=== PATIENT | female | born 2000 | race Caucasian/White ===

== ENCOUNTER 2024-11-02 14:54 | Outpatient (OUT) | payer BC, SELFPAY ==
[2024-11-02 15:47] LABS: Basophils Percent Auto 0.2 % (0.2-2.0); Eosinophils Absolute Auto 0.1 10^3/uL (0.0-0.7); Eosinophils Percent Auto 0.9 % (0.9-7.0); Hematocrit 37.4 % (36.0-48.0); Hemoglobin 13.2 g/dL (12.0-16.0); Immature Granulocytes Abs Auto 0.02 10^3/uL (0.00-0.03); Immature Granulocytes Pct Auto 0.2 % (0.0-0.5); Lymphocytes Absolute Auto 2.6 10^3/uL (1.2-3.8); Lymphocytes Percent Auto 24.4 % (20.5-60.0); Mean Corpuscular HGB Conc 35.3 g/dL (29.9-35.2); Mean Corpuscular Hemoglobin 30.3 pg (26.7-34.0); Mean Platelet Volume 10.2 fL (9.5-13.5); Monocytes Absolute Auto 0.8 10^3/uL (0.3-0.8); Monocytes Percent Auto 7.8 % (1.7-12.0); Neutrophils Percent Auto 66.5 % (43.0-75.0); Platelet Count 282 10^3/uL (150-450); Red Blood Count 4.35 10^6/uL (4.20-5.40); Red Cell Distribution Width 12.5 % (11.0-15.0); White Blood Count 10.5 10^3/uL (4.0-11.0)
[2024-11-02 16:00] LABS: BOX Test Reference Lab UNITY; BOX Test Sent Out UNITY
[2024-11-02 16:04] LABS: Amphetamine Screen Urine NEGATIVE (NEGATIVE); Barbiturates Screen Urine NEGATIVE (NEGATIVE); Benzodiazepines Screen Urine NEGATIVE (NEGATIVE); Buprenorphine Screen Urine NEGATIVE (NEGATIVE); Cannabinoid Screen Urine NEGATIVE (NEGATIVE); Cocaine Screen Urine NEGATIVE (NEGATIVE); Methadone Screen Urine NEGATIVE (NEGATIVE); Methamphetamines Screen Urine NEGATIVE (NEGATIVE); Opiate Screen Urine NEGATIVE (NEGATIVE); Oxycodone Screen Urine NEGATIVE (NEGATIVE); Phencyclidine Screen Urine NEGATIVE (NEGATIVE); Tricyclic Antidepressant Urine NEGATIVE (NEGATIVE)
[2024-11-02 16:20] LABS: Estimated Average Glucose 100 mg/dL; Glycohemoglobin A1C 5.1 % (4.5-6.2)
[2024-11-03 04:08] LABS: Rubella Antibodies, IgG 3.08 index (Immune >0.99)
[2024-11-03 05:07] LABS: HCV Ab Non Reactive (Non Reactive); HIV Ab/p24 Ag Screen Non Reactive (Non Reactive)
[2024-11-03 06:08] LABS: HBsAg Screen Negative (Negative)
[2024-11-03 12:08] LABS: Rapid Plasma Reagin, Quant Non Reactive titer (NonRea<1:1)
== END 2024-11-02 14:55 | disposition home or self-care (01) ==
LOC: LAB 15:01
PROVIDERS: PCP Obstetrics & Gynecology; Visit Provider Obstetrics & Gynecology
DX: Z34.01 Encounter for supervision of normal first pregnancy, first trimester (principal); Z36.0 Encounter for antenatal screening for chromosomal anomalies; N92.6 Irregular menstruation, unspecified
CPT/HCPCS: 36415; 80307; 83036; 85025; 86592; 86762; 86803; 86850; 86900; 86901; 87086; 87340; 87389

== ENCOUNTER 2025-01-05 21:09 | Outpatient (REF) | payer BC, SELFPAY ==
[2025-01-11 14:08] LABS: Age Gdln ACOG Testing Note (.); IGP, rfx Aptima HPV ASCU Note (.)
== END 2025-01-05 21:10 | disposition home or self-care (01) ==
LOC: LAB 21:09
PROVIDERS: Visit Provider Physician Assistant
DX: Z01.419 Encounter for gynecological examination (general) (routine) without abnormal findings (principal)
CPT/HCPCS: 88175

== ENCOUNTER 2025-01-16 14:44 | Outpatient (OUT) | payer BC, SELFPAY ==
--- OUTSIDE RECORDS SUMMARY | 2025-01-05 14:40 | XMS_ITS | Encounter Summary ---
Author Organization [facility] Healthcare Address [address] [place] [address] Care Team Providers Care Diving Board Assembler Name Role Phone Unavailable Primary Care Provider Unavailabl e Reason for Visit * Reason Comments Routine Visit Encounter Details Date Type Department Care Team (Latest Contact Info) Description 01/05/2025 2:40 PM EDT Routine [facility] OB [address] [place] [phone] Elizabeth Bonilla PA [address] [facility] [address] [place], [facility]11 Second trimester ; 20 weeks gestation of ; Screening, , for anatomic survey; Well woman exam with routine gynecological exam; STD exposure Social History Tobacco Use Types Packs/Day Years Used Date Smoking Tobacco: Never Assessed Estimated Date of Delivery Comme nts Yes 05/28/2025 Based on last me nstrual period of 08/21/2024 Sex and Gender Information Value Date Recorded Sex Assigned at Not on file Legal Sex Female 11:47 PM EDT Gender Identity Not on file Sexual Orientation Not on file documented as of this encounter Last Filed Vital Signs Vital Sign Reading Time Taken Comments Blood Pressure 116/74 01/05/2025 3:11 PM EDT Pulse - - Temperature - - Respiratory Rate - - Oxygen Saturation - - Inhaled Oxygen Concentration - - Weight 79.6 kg (175 lb 8 oz) 01/05/2025 3:11 PM EDT Height - - Body Mass Index - - documented in this encounter Progress Notes * DULCE Deshpande - 01/05/2025 2:40 PM EDT Reason for Appointment: Patient ID: Ayala Bradford is a 24 y.o. female who presents for Routine Visit Patient presents today for Return OB appointment. MEDICATIONS No current outpatient medications ALLERGIES No Known Allergies PROBLEMS Active Ambulatory Problems Diagnosis Date Noted No Active Ambulatory Problems Resolved Ambulatory Problems Diagnosis Date Noted No Resolved Ambulatory Problems Past Medical History: Diagnosis Date Well woman exam HISTORY PAST MEDICAL HISTORY SOCIAL HISTORY Past Medical History: Diagnosis Date Well woman exam Social History Tobacco Use Smoking status: Not on file Smokeless tobacco: Not on file Substance Use Topics Alcohol use: Not on file Drug use: Not on file FAMILY HISTORY Family History Problem Relation Name Age of Onset Cancer Maternal Grandfather SURGICAL HISTORY Past Surgical History: Procedure Laterality Date SECTION, CLASSIC 11/18/2021 PAP SMEAR 03/26/2022 REVIEW OF SYSTEMS Review of Systems: Review of Systems Constitutional: Negative. HENT: Negative. Eyes: Negative. Respiratory: Negative. Cardiovascular: Negative. Gastrointestinal: Negative. Genitourinary: Negative. Musculoskeletal: Negative. Skin: Negative. Neurological: Negative. All other systems reviewed and are negative. Hematological: Negative. Endocrine: Negative. Allergic/Immunologic: Negative. OBJECTIVE Objective: Physical Exam Constitutional: Appearance: Normal appearance. She is normal weight. Genitourinary: Right Adnexa: not tender and no mass present. Left Adnexa: not tender and no mass present. No cervical discharge. Breasts: Breasts are soft. Right: Normal. Left: Normal. HENT: Head: Normocephalic. Nose: Nose normal. Mouth/Throat: Mouth: Mucous membranes are moist. Cardiovascular: Rate and Rhythm: Normal rate. Pulses: Normal pulses. Pulmonary: Effort: Pulmonary effort is normal. Breath sounds: Normal breath sounds. Abdominal: General: Bowel sounds are normal. Palpations: Abdomen is soft. Musculoskeletal: General: Normal range of motion. Cervical back: Normal range of motion. Neurological: General: No focal deficit present. Mental Status: She is alert and oriented to person, place, and time. Skin: General: Skin is warm and dry. Psychiatric: Mood and Affect: Mood normal. Behavior: Behavior normal. Thought Content: Thought content normal. Judgment: Judgment normal. Vitals and nursing note reviewed. Exam conducted with a pier hand present. Vitals: There is no height or weight on file to calculate BMI. BP: 116/74 Patient's last menstrual period was 08/21/2024. ASSESSMENT & PLAN ICD-10-CM 1. Second trimester Z34.92 POCT urinalysis dipstick manually resulted 2. 20 weeks gestation of Z3A.20 Alpha fetoprotein, maternal Alpha fetoprotein, maternal 3. Screening, , for anatomic survey Z36.89 US OB 14+ weeks anatomy scan US OB 14+ weeks anatomy scan 4. Well woman exam with routine gynecological exam Z01.419 Pap Smear 5. STD exposure Z20.2 SURESWAB(R) ADVANCED VAGINITIS PLUS, TMA CHLAMYDIA TRACHOMATIS (GENITO/STI) Neisseria gonorrhea DNA probe, direct Return OB/Annual Exam: Patient presents today for an annual exam/routine obstetrics appointment. Patient is currently 19w4d . Patient is doing well and states she has no complaints. Pap/cultures was obtained without difficulty and patient was given msAFP order to have obtained. Orders Placed This Encounter Procedures US OB 14+ weeks anatomy scan CHLAMYDIA TRACHOMATIS (GENITO/STI) Neisseria gonorrhea DNA probe, direct Alpha fetoprotein, maternal POCT urinalysis dipstick manually resulted Follow Up: Patient is to return to our office in 4 weeks for routine OB appointment Documented by DULCE Deshpande on behalf of: DULCE Deshpande documented in this encounter Plan of Treatment Upcoming Encounters Date Type Department Care Team (Late st Contact Info) Description 02/01/2025 3:50 PM EDT Routine [facility] OB [address] [facility] [place] [phone] Zion Dai, DO [address] [place] [address] Scheduled Orders Name Type Priority Associated Diagnoses Orde r Schedule Pap Smear Pathology and Cytology Routine Well woman exam with routine gynecological exam Ordered: 01/05/2025 SURESWAB(R) ADVANCED VAGINITIS PLUS, TMA Pathology and Cytology Routine STD exposure Ordered: 01/05/2025 CHLAMYDIA TRACHOMATIS (GENITO/STI) Lab Routine STD exposure Ordered: 01/05/2025 Neisseria gonorrhea DNA probe, direct Lab Routine STD exposure Ordered: 01/05/2025 US OB 14+ weeks anatomy scan Imaging Routine Screening, , for anatomic survey Expected: 01/05/2025, Expires: 04/07/2025 Alpha fetoprotein, maternal Lab Routine 20 weeks gestation of Expected: 01/05/2025 (Approximate), Expires: 02/05/2025 documented as of this encounter Procedures Procedure Name Priority Date/Time Associated Diagnosis Comments POCT URINALYSIS DIPSTICK Routine 01/05/2025 3:12 PM EDT Second trimester documented in this encounter Results * POCT urinalysis dipstick manually resulted (01/05/2025 3:12 PM EDT) Color, UA Yellow Clarity, UA Clear Glucose, UA Negative Negative - 2000(110) ++++ mg/dL Bilirubin, UA Negative Negative - 4(70) +++ mg/dL Ketones, UA Negative Negative - 160(16) ++++ mg/dL Spec Grav, UA 1.005 1 - 1.03 Blood, UA Negative Negative - 50 Dany/mcL pH, UA 5.5 5 - 9 Protein, UA Negative Negative - 2000(20) ++++ mg/dL Urobilinogen, UA 0.2 0.2 - 12 mg/dL Leukocytes, UA Negative Negative - 500+++ Luz/mcL Nitrite, UA Negative Negative - Positive Urine 01/05/2025 3:12 PM EDT Elizabeth CARDONA POINT OF CARE TEST ENTER/EDIT OR DERABLES Final Result documented in this encounter Visit Diagnoses Diagnosis Second trimester state, incidental 20 weeks gestation of Screening, , for anatomic survey Encounter for anatomic survey Well woman exam with routine gynecological exam Routine gynecological examination STD exposure documented in this encounter
--- OUTSIDE RECORDS SUMMARY | 2025-01-16 14:46 | XMS_ITS ---
Author Organization [facility] ction (ClinicalSummary Clone) Address Unknown Care Team Providers Care Advertising Representative Name Role Phone Unavailable Primary Care Physician Unavailab le Results * [UNITY] ANEUPLOIDY NIPT Performed by: [employer] Component Value Range Date Fraction 6.6% 11/06/2024 03 :02 pm UTC Rh(D) NIPT RhD DETECTED 11/06/2024 03:0 2 pm UTC Sex Chromosome Aneuploidy NOT DETECTED 03:02 pm UTC Monosomy X LOW RISK <1 in 10,000 2024 03:02 pm UTC Trisomy 13 LOW RISK <1 in 10,000 2024 03:02 pm UTC Trisomy 18 LOW RISK <1 in 10,000 2024 03:02 pm UTC Trisomy 21 LOW RISK <1 in 10,000 2024 03:02 pm UTC Sex MALE 11/06/2024 03:0 2 pm UTC Gestation JOSHUA 11/07/19 03:02 pm UTC For detailed report, see PDF See PDF 11/06/2024 03:02 pm UTC 11/06/2024 03:0 2 pm UTC Social History Observation Value Start Date End Date
--- OUTSIDE RECORDS SUMMARY | 2025-01-16 14:47 | XMS_ITS | Encounter Summary ---
Author Organization [facility] Address [address] [place] [address] Care Team Providers Care Media Production Support Manager Name Role Phone Unavailable Primary Care Provider Unavailabl e Encounter Details Date Type Department Care Team (Late Contact Info) Description 01/05/2025 Clinisync Result Encounter [facility] External Department Unsolicited Elizabeth Bonilla PA [address] [place] [address] Dr [place], [place] [address] Social History Tobacco Use Types Packs/Day Years Used Date Smoking Tobacco: Never Assessed Estimated Date of Delivery Comme nts Yes 05/28/2025 Based on last me nstrual period of 08/21/2024 Sex and Gender Information Value Date Recorded Sex Assigned at Not on file Legal Sex Female 11:47 PM EDT Gender Identity Not on file Sexual Orientation Not on file documented as of this encounter Plan of Treatment Upcoming Encounters Date Type Department Care Team (Late Contact Info) Description 02/01/2025 3:50 PM EDT Routine [facility] OB [address] [place] [phone] Zion Dai, DO [address] [facility] [address] [place], [place] [address] documented as of this encounter Procedures Procedure Name Priority Date/Time Associated Diagnosis Comments IGP,APTIMA HPV,AGE GDLN Routine 01/05/2025 2:44 PM EDT documented in this encounter Results * IGP,APTIMA HPV,AGE GDLN (01/05/2025 2:44 PM EDT) AGE GDLN ACOG TESTING Note . [facility] Comment: TESTS RESULT FLAG UNITS REF RANGE LAB Clinician Provided Cytology Information Source.............Endocervix Other.............. No. of containers..01 ThinPrep Vial Age Algo ACOG Brenda... FLAG LEGEND: L-Low Normal,H-High Normal,LL-Alert Low,HH-Alert High <-Panic Low,>-Panic High,A-Abnormal,AA-Critical Abnormal Performed at: 01 [address] [facility] [id number] Marysol Wren MD, IGP, RFX APTIMA HPV ASCU Note . [facility] Comment: TESTS RESULT FLAG UNITS REF RANGE LAB DIAGNOSIS: 02 NEGATIVE FOR INTRAEPITHELIAL LESION OR MALIGNANCY. Specimen adequacy: 02 Satisfactory for evaluation. No endocervical component is identified. An endocervical component is not commonly seen in the patient. Performed by: 02 Elizabeth Sim, Sr. Payroll Processor (ASCP) . 02 Note: Note 02 The Pap smear is a screening test designed to aid in the detection of premalignant and malignant conditions of the uterine cervix. It is not a diagnostic procedure and should not be used as the sole means of detecting cervical cancer. Both false-positive and false-negative reports do occur. Test Methodology: Note 02 This liquid based ThinPrep(R) pap test was screened with the use of an image guided system. . 02 The HPV DNA reflex criteria were not met with this specimen result therefore, no HPV testing was performed. FLAG LEGEND: L-Low Normal,H-High Normal,LL-Alert Low,HH-Alert High <-Panic Low,>-Panic High,A-Abnormal,AA-Critical Abnormal Performed at: [address] [phone] Marysol Wren MD, Performed at: = - [facility] [id number] Wildlife Conservationist: Marysol Wren MD, Phone: [phone] Performed at: [facility] [id number] Wildlife Conservationist: Marysol Wren MD, Phone: [phone] 01/05/2025 2:44 PM EDT 01/06/2025 6:16 AM EDT Narrative AYESHAISYNC - 01/11/2025 2:08 PM EDT SPATULA-ALONE ENDOCERVIX us Elizabeth CARDONA LAB BLOOD ORDERABLES Final Resul t [facility] documented in this encounter Visit Diagnoses Not on filedocumented in this encounter
--- OUTSIDE RECORDS SUMMARY | 2025-01-16 14:47 | XMS_ITS | Encounter Summary ---
Author Organization [facility] Address [address] [place] [address] Care Team Providers Care It Security Manager Name Role Phone Unavailable Primary Care Provider Unavailabl e Encounter Details Date Type Department Care Team (Late Contact Info) Description 01/05/2025 External Result Encounter [facility] External Department Unsolicited Elizabeth Bonilla PA [address] [facility] [address] [place], [place] [phone] Social History Tobacco Use Types Packs/Day Years [...] PM EDT Routine [facility] OB [address] [facility] [address] [place] [phone] Zion Dai, DO [address] [facility] [place] [address] documented as of this encounter Procedures Procedure Name Priority Date/Time Associated Diagnosis Comments RECURRENT VAGINITIS (HTRX) Routine 01/05/2025 3:26 PM EDT documented in this encounter Results * RECURRENT VAGINITIS (HTRX) (01/05/2025 3:26 PM EDT) [facility] ATOPOBIUM VAGINAE 0.000 19.961 - 24.689 ppm 01/06/2025 6:28 AM EDT [facility] ATOPOBIUM VAGINAE Not Detected 19.961 - 24.689 ppm 01/06/2025 6:28 AM EDT [facility] BVAB 2,3 (BACTERIAL VAGINOSIS ASSOCIATED BACTERIA 2, 3); MOBILUNCUS SPP 0.000 19.961 - 24.689 ppm 01/06/2025 6:28 AM EDT [facility] BVAB 2,3 (BACTERIAL VAGINOSIS ASSOCIATED BACTERIA 2, 3); MOBILUNCUS SPP Not Detected 19.961 - 24.689 ppm 01/06/2025 6:28 AM EDT [facility] TERRANCE ALBICANS, PARAPSILOSIS, TROPICALIS 0.000 19.961 - 30.770 ppm 01/06/2025 6:28 AM EDT [facility] TERRANCE ALBICANS, PARAPSILOSIS, TROPICALIS Not Detected 19.961 - 30.770 ppm 01/06/2025 6:28 AM EDT [facility] TERRANCE GLABRATA 0.000 23.000 - 32.138 ppm 01/06/2025 6:28 AM EDT [facility] TERRANCE GLABRATA Not Detected 23.000 - 32.138 ppm 01/06/2025 6:28 AM EDT [facility] TERRANCE KRUSEI 0.000 23.000 - 32.271 ppm 01/06/2025 6:28 AM EDT [facility] TERRANCE KRUSEI Not Detected 23.000 - 32.271 ppm 01/06/2025 6:28 AM EDT [facility] CHLAMYDIA TRACHOMATIS 0.000 23.000 - 31.467 ppm 01/06/2025 6:28 AM EDT [facility] CHLAMYDIA TRACHOMATIS Not Detected 23.000 - 31.467 ppm 01/06/2025 6:28 AM EDT [facility] GARDNERELLA VAGINALIS 0.000 19.961 - 24.689 ppm 01/06/2025 6:28 AM EDT [facility] GARDNERELLA VAGINALIS Not Detected 19.961 - 24.689 ppm 01/06/2025 6:28 AM EDT [facility] MEGASPHAERA (TYPES 1, 2) 0.000 19.961 - 24.689 ppm 01/06/2025 6:28 AM EDT [facility] MEGASPHAERA (TYPES 1, 2) Not Detected 19.961 - 24.689 ppm 01/06/2025 6:28 AM EDT [facility] NEISSERIA GONORRHOEAE 0.000 23.000 - 32.117 ppm 01/06/2025 6:28 AM EDT [facility] NEISSERIA GONORRHOEAE Not Detected 23.000 - 32.117 ppm 01/06/2025 6:28 AM EDT [facility] TRICHOMONAS VAGINALIS 0.000 23.000 - 32.119 ppm 01/06/2025 6:28 AM EDT [facility] TRICHOMONAS VAGINALIS Not Detected 23.000 - 32.119 ppm 01/06/2025 6:28 AM EDT [facility] MYCOPLASMA GENITALIUM 0.000 19.961 - 24.689 ppm 01/06/2025 6:28 AM EDT [facility] MYCOPLASMA GENITALIUM Not Detected 19.961 - 24.689 ppm 01/06/2025 6:28 AM EDT [facility] Tissue 01/05/2025 3:26 PM EDT 01/06/2025 1:28 AM EDT us Elizabeth CARDONA LAB BLOOD ORDERABLES Final Resul t [facility] [address] [place] [address] documented in this encounter Visit Diagnoses Not on filedocumented in this encounter
--- OUTSIDE RECORDS SUMMARY | 2025-01-16 14:47 | XMS_ITS | Encounter Summary ---
Author Organization [facility] Address [address] [place] [address] Care Team Providers Care Client Consultant Name Role Phone Unavailable Primary Care Provider Unavailabl e Encounter Details Date Type Department Care Team ([facility] Contact Info) Description 12/19/2024 Abstract [facility] OB [address] [place] [address] Zion Dai [facility] [place], [facility]11 Social History Tobacco Use Types Packs/Day Years [...] Description 02/01/2025 3:50 PM EDT Routine [facility] OB [address] [place] [address] Zion Dai DO [address] [place], [facility]11 documented as of this encounter Visit Diagnoses Not on filedocumented in this encounter
--- OUTSIDE RECORDS SUMMARY | 2025-01-16 14:47 | XMS_ITS | Encounter Summary ---
Author Organization [facility] Address [address] [place] [address] Care Team Providers Care Dough Brake Machine Operator Name Role Phone Unavailable Primary Care Provider Unavailabl e Encounter Details Date Type Department Care Team (Latest Contact Info) Description 01/04/2025 Travel Social History Tobacco Use Types Packs/Day Years [...] PM EDT Routine [facility] OB [address] [place] [phone] Zion Dai, DO [address] [facility] [address] [place], [place] [address] documented as of this encounter Visit Diagnoses Not on filedocumented in this encounter
--- OUTSIDE RECORDS SUMMARY | 2025-01-16 14:47 | XMS_ITS | Encounter Summary ---
Author Organization [facility] Address [address] [place] [address] Care Team Providers Care Flower Grader Name Role Phone Unavailable Primary Care Provider Unavailabl e Encounter Details Date Type Department Care Team ([facility] Contact Info) Description 01/05/2025 Bamboo flowsheet [facility] OB [address] [facility] [place] [address] Elizabeth Bonilla PA [address] [facility] [address] [place], [facility]11 Social History Tobacco Use Types Packs/Day Years [...] PM EDT Routine [facility] OB [address] [facility] [address] [place] [address] Zion Dai DO [address] [facility] [address] [place], [facility] documented as of this encounter Visit Diagnoses Not on filedocumented in this encounter
--- OUTSIDE RECORDS SUMMARY | 2025-01-16 14:47 | XMS_ITS | Encounter Summary ---
Author Organization [facility] Address [address] [place] [address] Care Team Providers Care Horizontal Boring Mill Set Up Operator Name Role Phone Unavailable Primary Care Provider Unavailabl e Encounter Details Date Type Department Care Team (Late Contact Info) Description 11/10/2024 Abstract [facility] OB [address] [place] [address] Zion Dai [facility] [place], [facility]11 Social History Tobacco Use Types Packs/Day Years [...] Description 02/01/2025 3:50 PM EDT Routine [facility] OB [address] [place] [address] Zion Dai DO [address] [place], [facility] documented as of this encounter Visit Diagnoses Not on filedocumented in this encounter
--- OUTSIDE RECORDS SUMMARY | 2025-01-16 14:47 | XMS_ITS | Clinical Summary ---
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 Name Role Phone Unavailable Primary Care Provider Unavailabl e Allergies No known active allergies Medications No known medications Encounters Date Type Department Care Team Description 01/05/2025 2:40 PM EDT Routine [facility] [address] [place] [address] Elizabeth Bonilla PA Second trimester ; 20 weeks gestation of ; Screening, , for anatomic survey; Well woman exam with routine gynecological exam; STD exposure 01/05/2025 Clinisync Result Encounter [facility] External Department Unsolicited Elizabeth Bonilla PA 01/05/2025 External Result Encounter [facility] External Department Unsolicited Elizabeth Bonilla PA 01/05/2025 Bamboo flowsheet [facility] [address] [place] [address] Elizabeth Bonilla PA 01/04/2025 Travel 12/19/2024 Abstract [facility] [address] [place] [address] Zion Dai DO 12/08/2024 10:50 AM EDT Routine [facility] [address] [place] [address] Zion Dai DO Second trimester ; 15 weeks gestation of 12/08/2024 Bamboo flowsheet [facility] [address] [place] [address] Zion Dai DO 12/08/2024 Travel 11/27/2024 Travel 11/10/2024 Abstract [facility] [place] [address] Zion Dai, 11/02/2024 Clinisync Result Encounter [facility] External Department Unsolicited Zion Dai, DO 10/27/2024 1:00 PM EDT Initial [facility] [place] [address] GA: [id number] 10/27/2024 12:30 PM EDT Ancillary Procedure [facility] [place] [address] Missed menses 10/27/2024 Telephone [facility] [address] [place] [address] Pat Armas MA 10/20/2024 Travel from Last 3 Months Family History Medical History Relation Name Comments Cancer Maternal Grandfather Relation Name Status Comments Maternal Grandfather Social History Tobacco Use Types Packs/Day Years Used Date Smoking Tobacco: Never Assessed Estimated Date of Delivery Comme nts Yes 05/28/2025 Based on last me nstrual period of 08/21/2024 Sex and Gender Information Value Date Recorded Sex Assigned at Not on file Legal Sex Female 11:47 PM EDT Gender Identity Not on file Sexual Orientation Not on file Last Filed Vital Signs Vital Sign Reading Time Taken Comments Blood Pressure 116/74 01/05/2025 3:11 PM EDT Pulse - - Temperature - - Respiratory Rate - - Oxygen Saturation - - Inhaled Oxygen Concentration - - Weight 79.6 kg (175 lb 8 oz) 01/05/2025 3:11 PM EDT Height - - Body Mass Index - - Plan of Treatment Upcoming Encounters Date Type Department Care Team (Late st Contact Info) Description 02/01/2025 3:50 PM EDT Routine [facility] OB [address] [place] [address] Zion Dai, DO [address] [place], [place] [phone] (work) Procedures Procedure Name Priority Date/Time Associated Diagnosis Comments RECURRENT VAGINITIS (HTRX) Routine 01/05/2025 3:26 PM EDT POCT URINALYSIS DIPSTICK Routine 01/05/2025 3:12 PM EDT Second trimester IGP,APTIMA HPV,AGE GDLN Routine 01/05/2025 2:44 PM EDT POCT URINALYSIS DIPSTICK Routine 12/08/2024 11:16 AM EDT Second trimester HBSAG SCREEN Routine 11/02/2024 3:20 PM EDT RAPID PLASMA REAGIN, QUANT Routine 11/02/2024 3:20 PM EDT HCV ANTIBODY RFX TO QUANT PCR Routine 11/02/2024 3:20 PM EDT HIV AB/P24 AG WITH REFLEX Routine 11/02/2024 3:20 PM EDT ALL RUBELLA IGG AB Routine 11/02/2024 3: 20 PM EDT ALL TYPE AND SCREEN Routine 11/02/2024 3 :20 PM EDT MLR HEMOGLOBIN A1C Routine 11/02/2024 3: 20 PM EDT BOX TEST Routine 11/02/2024 3:20 PM EDT ALL CBC WITH AUTO DIFF Routine 11/02/2024 3:20 PM EDT [facility] DRUG SCREEN RAPID (URINE) Routine 11/02/2024 3:06 PM EDT POCT , URINE Routine 10/27/2024 1:17 PM EDT Missed menses POCT URINALYSIS DIPSTICK Routine 10/27/2024 1:16 PM EDT Missed menses US OB TRANSVAGINAL Routine 10/27/2024 12 :48 PM EDT Missed menses from Last 3 Months Results * RECURRENT VAGINITIS (HTRX) (01/05/2025 3:26 PM EDT) [facility] ATOPOBIUM VAGINAE 0.000 19.961 - 24.689 ppm 01/06/2025 6:28 AM EDT [facility] ATOPOBIUM VAGINAE Not Detected 19.961 - 24.689 ppm 01/06/2025 6:28 AM EDT [facility] BVAB 2,3 (BACTERIAL VAGINOSIS ASSOCIATED BACTERIA 2, 3); MOBILUNCUS SPP 0.000 19.961 - 24.689 ppm 01/06/2025 6:28 AM EDT [facility] BVAB 2,3 (BACTERIAL VAGINOSIS ASSOCIATED BACTERIA 2, 3); MOBILUNCUS SPP Not Detected 19.961 - 24.689 ppm 01/06/2025 6:28 AM EDT [facility] TERRANCE ALBICANS, PARAPSILOSIS, TROPICALIS 0.000 19.961 - 30.770 ppm 01/06/2025 6:28 AM EDT [facility] TERRANCE ALBICANS, PARAPSILOSIS, TROPICALIS Not Detected 19.961 - 30.770 ppm 01/06/2025 6:28 AM EDT [facility] TERRANCE GLABRATA 0.000 23.000 - 32.138 ppm 01/06/2025 6:28 AM EDT [facility] TERRANCE GLABRATA Not Detected 23.000 - 32.138 ppm 01/06/2025 6:28 AM EDT [facility] TERRANCE KRUSEI 0.000 23.000 - 32.271 ppm 01/06/2025 6:28 AM EDT [facility] TERRANCE KRUSEI Not Detected 23.000 - 32.271 ppm 01/06/2025 6:28 AM EDT [facility] CHLAMYDIA TRACHOMATIS 0.000 23.000 - 31.467 ppm 01/06/2025 6:28 AM EDT [facility] CHLAMYDIA TRACHOMATIS Not Detected 23.000 - 31.467 ppm 01/06/2025 6:28 AM EDT [facility] GARDNERELLA VAGINALIS 0.000 19.961 - 24.689 ppm 01/06/2025 6:28 AM EDT [facility] GARDNERELLA VAGINALIS Not Detected 19.961 - 24.689 ppm 01/06/2025 6:28 AM EDT [facility] MEGASPHAERA (TYPES 1, 2) 0.000 19.961 - 24.689 ppm 01/06/2025 6:28 AM EDT [facility] MEGASPHAERA (TYPES 1, 2) Not Detected 19.961 - 24.689 ppm 01/06/2025 6:28 AM EDT [facility] NEISSERIA GONORRHOEAE 0.000 23.000 - 32.117 ppm 01/06/2025 6:28 AM EDT [facility] NEISSERIA GONORRHOEAE Not Detected 23.000 - 32.117 ppm 01/06/2025 6:28 AM EDT [facility] TRICHOMONAS VAGINALIS 0.000 23.000 - 32.119 ppm 01/06/2025 6:28 AM EDT [facility] TRICHOMONAS VAGINALIS Not Detected 23.000 - 32.119 ppm 01/06/2025 6:28 AM EDT [facility] MYCOPLASMA GENITALIUM 0.000 19.961 - 24.689 ppm 01/06/2025 6:28 AM EDT [facility] MYCOPLASMA GENITALIUM Not Detected 19.961 - 24.689 ppm 01/06/2025 6:28 AM EDT [facility] Tissue 01/05/2025 3:26 PM EDT 01/06/2025 1:28 AM EDT Elizabeth CARDONA LAB BLOOD ORDERABLES Final Resul t [id number] [address] [place] [address] * POCT urinalysis dipstick manually resulted (01/05/2025 3:12 PM EDT) Only the most recent of3 resultswithin the time period is included. Color, UA Yellow Clarity, UA Clear Glucose, UA Negative Negative - 1999(110) ++++ mg/dL Bilirubin, UA Negative Negative - 4(70) +++ mg/dL Ketones, UA Negative Negative - 160(16) ++++ mg/dL Spec Grav, UA 1.005 1 - 1.03 Blood, UA Negative Negative - 50 Dany/mcL pH, UA 5.5 5 - 9 Protein, UA Negative Negative - 1999(20) ++++ mg/dL Urobilinogen, UA 0.2 0.2 - 12 mg/dL Leukocytes, UA Negative Negative - 500+++ Luz/mcL Nitrite, UA Negative Negative - Positive Urine 01/05/2025 3:12 PM EDT Elizabeth CARDONA POINT OF CARE TEST ENTER/EDIT OR DERABLES Final Result * IGP,APTIMA HPV,AGE GDLN (01/05/2025 2:44 PM EDT) AGE GDLN ACOG TESTING Note . [facility] Comment: TESTS RESULT FLAG UNITS REF RANGE LAB Clinician Provided Cytology Information Source.............[employer] Other.............. No. of containers..01 ThinPrep Vial Age Algo ACOG Brenda... FLAG LEGEND: L-Low Normal,H-High Normal,LL-Alert Low,HH-Alert High <-Panic Low,>-Panic High,A-Abnormal,AA-Critical Abnormal Performed at: 01 =G [facility] [address] [facility] [place] [address] Marysol Wren MD, IGP, RFX APTIMA HPV ASCU Note . [facility] Comment: TESTS RESULT FLAG UNITS REF RANGE LAB DIAGNOSIS: 02 NEGATIVE FOR INTRAEPITHELIAL LESION OR MALIGNANCY. Specimen adequacy: 02 Satisfactory for evaluation. No endocervical component is identified. An endocervical component is not commonly seen in the patient. Performed by: Maru Sim, Nursing Manager ([facility]) . 02 Note: Note 02 The Pap [...] <-Panic Low,>-Panic High,A-Abnormal,AA-Critical Abnormal Performed at: [address] [address] Marysol Wren MD, Performed at: =[address] [id number] Intelligence Clerk: Marysol Wren MD, Phone: [phone] Performed at: [address] [id number] Intelligence Clerk: Marysol Wren MD, Phone: [phone] 01/05/2025 2:44 PM EDT 01/06/2025 6:16 AM EDT Narrative CLIN[facility] - 01/11/2025 2:08 PM EDT SPATULA-ALONE ENDOCERVIX Elizabeth CARDONA LAB BLOOD ORDERABLES Final Resul t Performing Organization Address [facility] Co de Phone Number [facility] * BOX TEST (11/02/2024 3:20 PM EDT) BOX TEST SENT OUT [facility] [address] [facility] [address] 11/02/24 [facility] 11/02/2024 3:20 PM EDT 11/02/2024 3:40 PM EDT Narrative [facility] - 11/02/2024 4:00 PM EDT [place] Zion Dai DO LAB BLOOD ORDERABLES Final Resul t Performing Organization Address [facility]/ZIP Co de Phone Number [facility] * HBSAG SCREEN (11/02/2024 3:20 PM EDT) Pathologist [facility] HBSAG SCREEN Negative Negative [facility] Comment: Performed at: CB [address] [id number] Intelligence Clerk: William Mathis PhD, Phone: [phone] 11/02/2024 3:20 PM EDT 11/02/2024 3:40 PM EDT [facility] 11/03/20[facility] 12:08 PM EDT Zion Malaika DO LAB BLOOD ORDERABLES Final Resul t Performing Organization Address [facility] Co de Phone Number [facility] * RAPID PLASMA REAGIN, QUANT (11/02/2024 3:20 PM EDT) Pathologist [facility] RAPID PLASMA REAGIN, QUANT Non Reactive NonRea<1: 1 titer [facility] Comment: Please Note: This test does not meet current guidelines for screening and diagnosis of syphilis. This test is intended for following treatment response in patients being treated for syphilis infection. To screen for syphilis infection, a reflex cascade that includes both RPR and a treponema-specific assay should be utilized, such as Treponema pallidum (Syphilis) Screening [place] (622062) or Rapid Plasma Reagin (RPR) Test With Reflex to Quantitative RPR and Confirmatory Treponema pallidum Antibodies (569452). Performed at: [address] [id number] Intelligence Clerk: William Mathis PhD, Phone: [phone] 11/02/2024 3:20 PM EDT 11/02/2024 3:40 PM EDT Narrative [facility] - 11/03/2024 12:08 PM EDT Zion Malaika DO LAB BLOOD ORDERABLES Final Resul t Performing Organization Address City/[facility]/ZIP Co de Phone Number [facility] * HIV AB/P24 AG WITH REFLEX (11/02/2024 3:20 PM EDT) Pathologist [facility] HIV AB/P24 AG SCREEN Non Reactive Non Reactive [facility] Comment: HIV-1/HIV-2 antibodies and HIV-1 p24 antigen were NOT detected. There is no laboratory evidence of HIV infection. HIV Negative Performed at: [facility] [id number] Intelligence Clerk: William Mathis PhD, Phone: [phone] 11/02/2024 3:20 PM EDT 11/02/2024 3:40 PM EDT Narrative [facility] - 11/03/2024 5:07 AM EDT Zion Malaika DO LAB BLOOD ORDERABLES Final Resul t Performing Organization Address [facility] Co de Phone Number [facility] * HCV ANTIBODY RFX TO QUANT PCR (11/02/2024 3:20 PM EDT) Pathologist [facility] HCV AB Non Reactive Non Reactive [facility] INTERPRETATION: Comment . [facility] Comment: Not infected with HCV unless early or acute infection is suspected (which may be delayed in an immunocompromised individual), or other evidence exists to indicate HCV infection. 11/02/2024 3:20 PM EDT 11/02/2024 3:40 PM EDT Narrative [facility] - 11/03/2024 5:07 AM EDT Expens[employer] DO LAB BLOOD ORDERABLES Final Resul t Performing Organization Address [facility] Co de Phone Number [facility] * MLR HEMOGLOBIN A1C (11/02/2024 3:20 PM EDT) Pathologist [facility] GLYCOHEMOGLOBIN A1C 5.1 4.5 - 6.2 % [facility] Comment: ADA RECOMMENDED LIMIT 4.0 - 6.0 ADA THERAPEUTIC TARGET < 7.0 ACTION SUGGESTED > 7.0 ESTIMATED AVERAGE GLUCOSE 100 mg/dL [facility] 11/02/2024 3:20 PM EDT 11/02/2024 3:40 PM EDT Narrative [facility] - 11/02/2024 4:23 PM EDT us Zion Malaika DO CLINISYNC Final Result Performing Organization Address City/[facility]/ZIP Co de Phone Number [facility] * ALL TYPE AND SCREEN (11/02/2024 3:20 PM EDT) [facility] BLOOD TYPE O Positive [facility] ANTIBODY SCREEN NEGATIVE [facility] 11/02/2024 3:20 PM EDT 11/02/2024 3:40 PM EDT Narrative CLIN[facility] - 11/02/2024 5:14 PM EDT [facility] , Zion Malaika DO CLINISYNC Final Result [facility] * ALL RUBELLA IGG AB (11/02/2024 3:20 PM EDT) [facility] RUBELLA ANTIBODIES, IGG 3.08 Immune >0.99 index [facility] Comment: Non-immune <0.90 Equivocal 0.90 - 0.99 Immune >0.99 Performed at: [facility] Lab[address] [id number] Intelligence Clerk: William Mathis PhD, Phone: [phone] 11/02/2024 3:20 PM EDT 11/02/2024 3:40 PM EDT Narrative [facility] - 11/03/2024 5:07 AM EDT [facility] Final Result Performing Organization Address [facility]/ZIP Co de Phone Number [facility] * (ABNORMAL) ALL CBC WITH AUTO DIFF (11/02/2024 3:20 PM EDT) [facility] TB WBC 10.5 4.0 - 11.0 10 3/uL TBH TBH RBC 4.35 4.20 - 5.40 10 6/uL [facility] TBH HGB 13.2 12.0 - 16.0 g/dL TB TBH HCT 37.4 36.0 - 48.0 % [facility]H MCV 86.0 81.0 - 99.0 fL TBH TBH MCH 30.3 26.7 - 34.0 pg TBH TBH MCHC 35.3(H) 29.9 - 35.2 g/dL TB TB RDW 12.5 11.0 - 15.0 % TB[facility] TBH PLT 282 150 - 450 10 3/uL TBH TBH MPV 10.2 9.5 - 13.5 fL [facility] NEUTROPHILS PERCENT AUTO 66.5 43.0 - 75.0 % [facility] LYMPHOCYTES PERCENT AUTO 24.4 20.5 - 60.0 % [facility] MONOCYTES PERCENT AUTO 7.8 1.7 - 12.0 % [facility]H EO % 0.9 0.9 - 7.0 % [facility] BASOPHILS PERCENT AUTO 0.2 0.2 - 2.0 % [facility] IMMATURE GRANULOCYTES PCT AUTO 0.2 0.0 - 0.5 % [facility] NEUTROPHILS ABSOLUTE AUTO 7.0(H) 1.4 - 6.5 10 3/uL [facility] LYMPHOCYTES ABSOLUTE AUTO 2.6 1.2 - 3.8 10 3/uL [facility] MONOCYTES ABSOLUTE AUTO 0.8 0.3 - 0.8 10 3/uL [facility] TBH EO # 0.1 0.0 - 0.7 10 3/uL [facility] BASOPHILS ABSOLUTE AUTO 0.0 0.0 - 0.1 10 3/uL [facility] IMMATURE GRANULOCYTES ABS AUTO 0.02 0.00 - 0.03 10 3/uL [facility] 11/02/2024 3:20 PM EDT 11/02/2024 3:40 PM EDT Narrative CLIN[facility] - 11/02/2024 3:56 PM EDT us Zion Malaika DO CLINISYNC Final Result [facility] * TB DRUG SCREEN RAPID (URINE) (11/02/2024 3:06 PM EDT) Pathologist [facility] CANNABINOID SCREEN URINE NEGATIVE NEGATIVE TBH PHENCYCLIDINE SCREEN URINE NEGATIVE NEGATIVE TB[facility] COCAINE SCREEN URINE NEGATIVE NEGATIVE TBH METHAMPHETAMINES SCREEN URINE NEGATIVE NEGATIVE TBH OPIATE SCREEN URINE NEGATIVE NEGATIVE TBH AMPHETAMINE SCREEN URINE NEGATIVE NEGATIVE TBH BENZODIAZEPINES SCREEN URINE NEGATIVE NEGATIVE TBH TRICYCLIC ANTIDEPRESSANT URINE NEGATIVE NEGATIVE TBH METHADONE SCREEN URINE NEGATIVE NEGATIVE TBH BARBITURATES SCREEN URINE NEGATIVE NEGATIVE TBH OXYCODONE SCREEN URINE NEGATIVE NEGATIVE TBH BUPRENORPHINE SCREEN URINE NEGATIVE NEGATIVE [facility] Comment: DRUG CLASS TEST SYSTEM CUT-OFF CONCENTRATIONS ARE FOLLOWS: AMP (Amphetamine): 500 ng/mL BAR (Barbiturates): 200 ng/mL BZO (Benzodiazepines): 150 ng/mL BUP (Buprenorphine): 10 ng/mL CLOTILDE (Cocaine): 150 ng/mL mAMP (Methamphetamine): 500 ng/mL MTD (Methadone): 200 ng/mL OPI (Opiates): 100 ng/mL OXY (Oxycodone): 100 ng/mL PCP (Phencyclidine): 25 ng/mL THC (Cannabinoids): 50 ng/mL TCA (Trycyclic Antidepressants): 300 ng/mL 11/02/2024 3:06 PM EDT 11/02/2024 3:42 PM EDT Narrative CLINISYNC - 11/02/2024 4:04 PM EDT us Zion Malaika DO CLINISYNC Final Result [facility] * (ABNORMAL) POCT , urine manually resulted (10/27/2024 1:17 PM EDT) Preg Test, Ur Positive Negative Urine 10/27/2024 1:17 PM EDT us Zion Malaika DO POINT OF CARE TEST ENTER/EDIT OR DERABLES Final Result * US OB transvaginal (10/27/2024 12:48 PM EDT) Anatomical Region Laterality Modality Body Ultrasound 10/30/2024 7:46 AM EDT Narrative 10/30/2024 7:46 AM EDT EXAM: US OB TRANSVAGINAL HISTORY: Dating. COMPARISON: None available. TECHNIQUE: Two-dimensional transvaginal grayscale ultrasound imaging of the pelvis was performed. Color Doppler evaluation of the ovaries was also performed. FINDINGS: The uterus demonstrates a normal homogeneous echotexture. The cervix measures 4.1 cm in length and the cervical os is closed. The right ovary measures 3.1 x 1.8 x 1.8 cm and demonstrates a normal echotexture. There is normal color Doppler flow. The left ovary is not visualized. No fluid is present within the cul-de-sac. There is a single, live intrauterine gestation identified with a heart rate of 174 beats per minute and a crown-rump length measurement of 2.4 cm, correlating to a gestational age of 9 weeks 0 days (+/- 6 days). There is no subchorionic hemorrhage visualized. A yolk sac is visualized. IMPRESSION: 1. Single, live intrauterine gestation 9 weeks, 4 days by LMP. Today's ultrasound measurements correlate with a gestational age of 9 weeks 0 days (+/- 6 days). BRISEIDA by today's ultrasound is 06/01/2025. 2. Normal color Doppler evaluation of the right ovary, the left ovary was not visualized. Electronically Signed:Electronically signed by JAMIE MATOS II, MD, PHD at 30-Oct-2024 07:44:44 AM [facility] Procedure Note Jamie Matos MD - 10/30/2024 EXAM: US OB TRANSVAGINAL HISTORY: Dating. COMPARISON: None available. TECHNIQUE: Two-dimensional transvaginal grayscale ultrasound imaging ofthe pelvis was performed. Color Doppler evaluation of the ovaries was alsoperformed. FINDINGS: The uterus demonstrates a normal homogeneous echotexture. The cervixmeasures 4.1 cm in length and the cervical os is closed. The right ovary measures 3.1 x 1.8 x 1.8 cm and demonstrates a normalechotexture. There is normal color Doppler flow. The left ovary is not visualized. No fluid is present within the cul-de-sac. There is a single, live intrauterine gestation identified with a fetalheart rate of 174 beats per minute and a crown-rump length measurement of2.4 cm, correlating to a gestational age of 9 weeks 0 days (+/- 6 days).There is no subchorionic hemorrhage visualized. A yolk sac isvisualized. IMPRESSION: 1. Single, live intrauterine gestation 9 weeks, 4 days by LMP. Today'sultrasound measurements correlate with a gestational age of 9 weeks 0days (+/- 6 days). BRISEIDA by today's ultrasound is 06/01/2025. 2. Normal color Doppler evaluation of the right ovary, the left ovary wasnot visualized. Electronically Signed:Electronically signed by JAMIE MATOS II, MD, PHDat 30-Oct-2024 07:44:44 AM [facility] us Zion Dai DO IMG OB US PROCEDURES Final Resul t from Last 3 Months Insurance
--- NOTE | 2025-01-16 14:48 | US_ITS ---
The [address] [address] Patient Name: TERESA NGUYEN MRN: [id number] date: 2000 Sex: F Assigned Patient Location: Current Patient Location: Accession/Order Number: [id number] Exam Date: 01/16/2025 16:46 Report Date: 01/16/2025 16:52 At the request of: MELI HOANG Procedure: US OB cervical length Obstetrical Ultrasound for Fetus greater than 14 weeks HISTORY: anatomy assessment heart rate is 138 bpm. The fetus is in cephalic presentation with longitudinal lie. The placenta is in a posterior position with normal appearance. Amniotic fluid subjectively normal. The cervix has a length of 4.3cm. Cervical os is closed. The estimated weight is 459 g. with percentile of 82.7%. The ovaries are not visualized. No fluid identified in the cul-de-sac. Following anatomy identified: Nose and lips, spine, four-chamber heart, stomach, cord insertion, three-vessel cord, kidneys, urinary bladder, 12 long bones and diaphragm. Echogenic focus of the left ventricle measures 3 mm. The biparietal diameter measures 5.3cm consistent with 22 weeks 1 day. Head circumference measures 19.6cm consistent with 21 weeks 6 days. Abdominal circumference measures 17.5cm consistent with 22 weeks 3 days. Femur length is 3.6cm consistent with 21 weeks 2 days. The average gestational age is 22 weeks 0 days. Estimated due date is 05/22/2025. somatic motion identified. US/US OB cervical length IMPRESSION: Single live intrauterine gestation 22 weeks earlier days. The anatomy as above. Cervical length 4.3 cm. Impression dictated by: Andres Espinoza M.D. 01/16/2025 4:52 PM Dictation Location: [facility] Electronically authenticated by: [id number] Y Date: 01/16/2025 16:52
--- NOTE | 2025-01-16 14:48 | US_ITS ---
The [address] [address] Patient Name: TERESA NGUYEN MRN: [id number] date: 2000 Sex: F Assigned Patient Location: US Current Patient Location: US Accession/Order Number: [id number] Exam Date: 01/16/2025 16:46 Report Date: 01/16/2025 16:52 At the request of: MELI HOANG Procedure: US OB cervical length Obstetrical Ultrasound for Fetus greater than 14 weeks HISTORY: anatomy assessment heart rate is 138 bpm. The fetus is in cephalic presentation with longitudinal lie. The placenta is in a posterior position with normal appearance. Amniotic fluid subjectively normal. The cervix has a length of 4.3cm. Cervical os is closed. The estimated weight is 459 g. with percentile of 82.7%. The ovaries are not visualized. No fluid identified in the cul-de-sac. Following anatomy identified: Nose and lips, spine, four-chamber heart, stomach, cord insertion, three-vessel cord, kidneys, urinary bladder, 12 long bones and diaphragm. Echogenic focus of the left ventricle measures 3 mm. The biparietal diameter measures 5.3cm consistent with 22 weeks 1 day. Head circumference measures 19.6cm consistent with 21 weeks 6 days. Abdominal circumference measures 17.5cm consistent with 22 weeks 3 days. Femur length is 3.6cm consistent with 21 weeks 2 days. The average gestational age is 22 weeks 0 days. Estimated due date is 05/22/2025. somatic motion identified. US/US OB anatomy IMPRESSION: Single live intrauterine gestation 22 weeks earlier days. The anatomy as above. Cervical length 4.3 cm. Impression dictated by: Andres Espinoza M.D. 01/16/2025 4:52 PM Dictation Location: [employer] Electronically authenticated by: [id number] Y Date: 01/16/2025 16:52
== END 2025-01-16 14:45 | disposition home or self-care (01) ==
LOC: US 14:44
PROVIDERS: Visit Provider Physician Assistant
DX: Z36.89 Encounter for other specified antenatal screening (principal); Z3A.22 22 weeks gestation of pregnancy
CPT/HCPCS: 76805; 76817

== ENCOUNTER 2025-02-24 14:47 | Outpatient (OUT) | payer BC, SELFPAY ==
[2025-02-24 16:09] LABS: Hematocrit 33.8 % (36.0-48.0); Hemoglobin 11.4 g/dL (12.0-16.0); Immature Granulocytes Abs Auto 0.04 10^3/uL (0.00-0.03); Immature Granulocytes Pct Auto 0.4 % (0.0-0.5); Lymphocytes Absolute Auto 2.0 10^3/uL (1.2-3.8); Mean Corpuscular HGB Conc 33.7 g/dL (29.9-35.2); Mean Corpuscular Hemoglobin 30.5 pg (26.7-34.0); Mean Corpuscular Volume 90.4 fL (81.0-99.0); Platelet Count 252 10^3/uL (150-450); Red Blood Count 3.74 10^6/uL (4.20-5.40); White Blood Count 9.5 10^3/uL (4.0-11.0)
[2025-02-24 16:40] LABS: Glucose 1 Hour 157 mg/dL (<130)
== END 2025-02-24 14:48 | disposition home or self-care (01) ==
LOC: LAB 14:48
PROVIDERS: Visit Provider Obstetrics & Gynecology
DX: Z13.1 Encounter for screening for diabetes mellitus (principal)
CPT/HCPCS: 36415; 82950; 85025

== ENCOUNTER 2025-03-09 07:26 | Outpatient (OUT) | payer BC, SELFPAY ==
[2025-03-09 09:04] LABS: Glucose 1 Hour 163 mg/dL (<180)
[2025-03-09 10:24] LABS: Glucose 2 Hour 142 mg/dL (<155)
[2025-03-09 11:31] LABS: Glucose 3 Hour 123 mg/dL (<140)
== END 2025-03-09 07:27 | disposition home or self-care (01) ==
LOC: LAB 07:26
PROVIDERS: Visit Provider Obstetrics & Gynecology
DX: R73.09 Other abnormal glucose (principal)
CPT/HCPCS: 36415; 82951; 82952

== ENCOUNTER 2025-03-28 15:50 | Outpatient (OUT) | payer BC, SELFPAY ==
--- OUTSIDE RECORDS SUMMARY | 2025-03-22 13:00 | XMS_ITS | Encounter Summary ---
Author Organization [facility] Address [address] [place] [address] Care Team Providers Care Brick Tester Name Role Phone Unavailable Primary Care Provider Unavailabl e Encounter Details Date Type Department Care Team (Latest Contact Info) Description 03/22/2025 1:00 PM EDT Ancillary Procedure ARNOLDO OLIVA [address] [place] [address] size inconsistent with dates ([facility]) Social History Tobacco Use Types Packs/Day Years [...] EDT Routine ARNOLDO OLIVA [address] [place] [address] Zion Dai DO [address] [place], [place] [id number] documented as of this encounter Procedures Procedure Name Priority Date/Time Associated Diagnosis Comments US OB FOLLOW UP TRANSABDOMINAL APPROACH Routine 03/22/2025 1:22 PM EDT size inconsistent with dates ([facility]) documented in this encounter Results * US [...] Visit Diagnoses Diagnosis size inconsistent with dates ([facility]) documented in this encounter
--- OUTSIDE RECORDS SUMMARY | 2025-03-22 13:30 | XMS_ITS | Encounter Summary ---
Author Organization [facility] Address [address] [place] [address] Care Team Providers Care Protective Service Specialist Name Role Phone Unavailable Primary Care Provider Unavailabl e Reason for Visit * Reason Comments Routine Visit Encounter Details Date Type Department Care Team ([facility] Contact Info) Description 03/22/2025 1:30 PM EDT Routine ARNOLDO [place] [facility] [address] [place] [address] Zion Dai DO [address] [place] [address] [place] [address] 30 weeks gestation of ([facility]); Third trimester ([facility]); Elevated glucose tolerance test Social History Tobacco [...] Diabetes mellitus screening 02/01/2025 Second trimester fetus ([facility]) 02/01/2025 23 weeks gestation of ([facility]) 02/01/2025 Resolved Ambulatory Problems Diagnosis Date Noted [...] nursing note reviewed. Exam conducted with a reed press feeder present. Vitals: There is no height or weight on file to calculate BMI. BP: 120/68 Patient's last menstrual period was 08/21/2024. ASSESSMENT & PLAN ICD-10-CM 1. 30 weeks gestation of ([facility]) Z3A.30 POCT urinalysis dipstick manually resulted 2. Third trimester ([facility]) Z34.93 POCT urinalysis dipstick manually resulted 3. [...] PM EDT Routine [facility] [address] [place] [address] Zion Dai DO [address] [place], [place] [id number] documented as of this encounter Procedures Procedure Name Priority Date/Time Associated Diagnosis Comments POCT URINALYSIS DIPSTICK Routine 03/22/2025 1:48 PM EDT 30 weeks gestation of ([facility]) Third trimester ([facility]) documented in this encounter Results * (ABNORMAL) [...] Visit Diagnoses Diagnosis 30 weeks gestation of ([facility]) Third trimester ([facility]) state, incidental Elevated glucose tolerance test Impaired glucose tolerance test documented in this encounter
--- NOTE | 2025-03-28 | US_ITS ---
[facility] [place] [address] Patient Name: TERESA NGUYEN MRN: [id number] date: 2000 Sex: F Assigned Patient Location: Current Patient Location: US Accession/Order Number: [id number] Exam Date: 03/28/2025 16:35 Report Date: 03/28/2025 16:35 At the request of: REINALDO DRUMMOND DO Procedure: US OB BPP w non-stress Biophysical profile. Reason for exam: Excessive growth COMPARISON: None TECHNIQUE: Transabdominal imaging of the gravid uterus was obtained. FINDINGS: The pearl digger reports a BPP of 8 out of 8. KATE is normal at 21.1 cm. heart rate 145 bpm. US/US OB BPP w non-stress IMPRESSION: BPP 8 out of 8. Impression dictated by: Albert Dodge Jr., D.O. 03/28/2025 4:35 PM Dictation Location: [place] [address] Electronically authenticated by: [id number] Y Date: 03/28/2025 16:35
--- OUTSIDE RECORDS SUMMARY | 2025-03-28 15:53 | XMS_ITS | Encounter Summary ---
Author Organization [facility] Address [address] [place] [address] Care Team Providers Care Manager Recovery Name Role Phone Unavailable Primary Care Provider Unavailabl e Encounter Details Date Type Department Care Team ([facility] Contact Info) Description 03/27/2025 Telephone [facility] [address] [place] [address] Diana Heart LPN [address] [place] [id number] Social History Tobacco Use Types Packs/Day Years Used Date Smoking Tobacco: Never Assessed Estimated Date of Delivery Comme nts Yes 05/28/2025 Based on last me nstrual period of 08/21/2024 Sex and Gender Information Value Date Recorded Sex Assigned at Not on file Legal Sex Female 11:47 PM EDT Gender Identity Not on file Sexual Orientation Not on file documented as of this encounter Miscellaneous Notes * Telephone Encounter - Diana Heart LPN - 03/27/2025 2:02 PM EDT Hi, my name is Ayala. Sanchez, I am one of Dr Dai's patients. I am currently 31 weeks . I just had I guess a question I was pretty concerned about. Last night at like, 11 I woke up literally like, gasping for air feeling like I was like drowning like I could not breathe like It almost felt like my airway was like the size of like a needle. It was really scary. I could not breathe for like,20 s. I was just gasping. I was not sure that was anything to be concerned about or anything that needed to be looked into. If you guys could give me a call at [phone]. That would be awesome, thank you. I told pt that it was probably just due to her heartburn/acid reflux and offered to send in medication for that. PVU documented in this encounter Plan of Treatment Upcoming Encounters Date Type Department Care Team (Late st Contact Info) Description 04/03/2025 3:50 PM EDT Routine [facility] [address] [place] [phone] Zion Dai DO [address] [place], [place] [phone] documented as of this encounter Visit Diagnoses Diagnosis Gastroesophageal reflux in ([facility]) documented in this encounter
--- OUTSIDE RECORDS SUMMARY | 2025-03-28 15:53 | XMS_ITS | Encounter Summary ---
Author Organization [facility] Address [address] [place] [address] Care Team Providers Care Surgical Oncologist Name Role Phone Unavailable Primary Care Provider Unavailabl e Encounter Details Date Type Department Care Team (Late Contact Info) Description 03/01/2025 Results Follow-Up ARNOLDO OLIVA [address] [place] [address] Diana Heart LPN [address] [employer] [address] [place] [phone] Social History Tobacco Use Types Packs/Day Years [...] as of this encounter Miscellaneous Notes * Result Encounter Note - Diana Heart LPN - 03/01/2025 7:46 AM EDT Pt comes in today. Order put with flowsheet documented in this encounter Plan of Treatment Upcoming Encounters Date Type Department Care Team (Late Contact Info) Description 04/03/2025 3:50 PM EDT Routine [facility] OL[facility]A [address] [place] [address] Malaika, Zion, [address] [place] [address] documented as of this encounter Visit Diagnoses Not on filedocumented in this encounter
--- OUTSIDE RECORDS SUMMARY | 2025-03-28 15:53 | XMS_ITS | Encounter Summary ---
Author Organization [facility] Address [address] [place] [address] Care Team Providers Care Terra Cotta Roofer Name Role Phone Unavailable Primary Care Provider Unavailabl e Encounter Details Date Type Department Care Team (Late Contact Info) Description 11/10/2024 Abstract ARNOLDO OLIVA [address] [place] [address] Zion Dai DO [address] [place], [id number] Social History Tobacco Use Types Packs/Day Years [...] EDT Routine ARNOLDO OLIVA [address] [place] [address] Zion Dai DO [address] [place], [place] [phone] documented as of this encounter Visit Diagnoses Not on filedocumented in this encounter
--- OUTSIDE RECORDS SUMMARY | 2025-03-28 15:53 | XMS_ITS | Encounter Summary ---
Author Organization [facility] Address [address] [place] [address] Care Team Providers Care Attorney Lawyer Name Role Phone Unavailable Primary Care Provider Unavailabl e Encounter Details Date Type Department Care Team (Late Contact Info) Description 03/28/2025 Telephone [facility] [address] [facility] [address] Diana Heart LPN [address] [place] [address] Social History Tobacco Use Types Packs/Day Years [...] Telephone Encounter - Diana Heart LPN - 03/28/2025 8:49 AM EDT FBC needed order documented in this encounter Plan of Treatment Upcoming Encounters Date Type Department Care Team (Late Contact Info) Description 04/03/2025 3:50 PM EDT Routine [facility] OLIVA [address] [place] [address] Zion Dai DO [address] [place] [address] Scheduled Orders Name Type Priority Associated Diagnoses Orde r Schedule US biophysical profile w non stress test Imaging Routine Excessive growth affecting management of in third trimester, single or unspecified fetus ([facility]) Polyhydramnios in third trimester complication, single or unspecified fetus ([facility]) Expected: 03/28/2025 (Approximate), Expires: 09/28/2025 documented as of this encounter Visit Diagnoses Diagnosis Excessive growth affecting management of in third trimester, single or unspecified fetus ([facility]) Polyhydramnios in third trimester complication, single or unspecified fetus ([facility]) documented in this encounter
--- OUTSIDE RECORDS SUMMARY | 2025-03-28 15:53 | XMS_ITS | Encounter Summary ---
Author Organization [facility] Address [address] [facility] [place] [address] Care Team Providers Care Manufacturing Storeperson Name Role Phone Unavailable Primary Care Provider Unavailabl e Encounter Details Date Type Department Care Team (Late Contact Info) Description 12/19/2024 Abstract ARNOLDO OLIVA [address] [place] [address] Zion Dai DO [address] [place], [facility] Social History Tobacco Use Types Packs/Day [...] EDT Routine ARNOLDO OLIVA [address] [place] [address] Zion Dai DO [address] [place], [place] [phone] documented as of this encounter Visit Diagnoses Not on filedocumented in this encounter
--- OUTSIDE RECORDS SUMMARY | 2025-03-28 15:53 | XMS_ITS | Encounter Summary ---
Author Organization [facility] Address [address] [place] [address] Care Team Providers Care Night Time Nanny Name Role Phone Unavailable Primary Care Provider Unavailabl e Encounter Details Date Type Department Care Team ([facility] Contact Info) Description 01/17/2025 Orders Only ARNOLDO OLIVA [address] [place] [phone] Radha Cassidy LPN [address] [facility] [place] [address] Social History Tobacco Use Types Packs/Day Years [...] Info) Description 04/03/2025 3:50 PM EDT Routine NOM[facility]jeet OLIVA [address] [place] [phone] Zion Dai DO [address] [facility] [address] [place] [place], [place] [id number] documented as of this encounter Procedures Procedure Name Priority Date/Time Associated Diagnosis Comments PAP SMEAR Routine 01/05/2025 12:00 AM EDT documented in this encounter Results * Pap Smear (01/05/2025 12:00 AM EDT) Swab Cervical swab / Unknown us Malaika Nurse [facility] LAB CYTOLOGY ORDERABLES Final Result EXTERNAL LAB documented in this encounter Visit Diagnoses Not on filedocumented in this encounter
--- OUTSIDE RECORDS SUMMARY | 2025-03-28 15:53 | XMS_ITS | Encounter Summary ---
Author Organization [facility] Address [address] [place] [address] Care Team Providers Care Endorsement Clerk Name Role Phone Unavailable Primary Care Provider Unavailabl e Encounter Details Date Type Department Care Team (Latest Contact Info) Description 03/22/2025 Travel Social History Tobacco Use Types Packs/Day [...] Description 04/03/2025 3:50 PM EDT Routine ARNOLDO Santos OBGYN [address] [address] [address] Zion Dai DO [address] [place], [place] [address] documented as of this encounter Visit Diagnoses Not on filedocumented in this encounter
--- OUTSIDE RECORDS SUMMARY | 2025-03-28 15:53 | XMS_ITS | Clinical Summary ---
Author Organization [facility] Address [address] [place] [address] Care Team Providers Care Music Department Chair Name Role Phone Unavailable Primary Care Provider Unavailabl e Allergies No known active allergies Medications famotidine (Pepcid) 20 MG tabletIndication s:Gastroesophage al Reflux Disease,Heartbur n Take 1 tablet (20 mg) by mouth Daily 30 tablet 11 03/27/2025 Active Active Problems Problem Noted Date Diagnosed Date Diabetes mellitus screening 02/01/2025 Second trimester fetus ([facility]) 02/01/2025 23 weeks gestation of ([facility]) 2024 Estimated Date of Delivery Comme nts Yes 05/28/2025 Based on last me nstrual period of 08/21/2024 Encounters Date Type Department Care Team Description 03/28/2025 Telephone [facility] OLIVA [facility] [place] [address] Diana Heart LPN 03/27/20[place] [address] Diana Heart LPN 03/22/2025 1:30 PM [place] [address] Zion Dai DO 30 weeks gestation of ([facility]); Third trimester ([facility]); Elevated glucose tolerance test 03/22/2025 1:00 PM EDT Ancillary Procedure [place] [address] size inconsistent with dates ([facility]) 03/22/2025 Travel 03/09/2025 Clinisync Result Encounter NOMS External Department Unsolicited Zion Dai, 03/06/2025 2:50 [place] [address] Elizabeth Hoang PA size inconsistent with dates ([facility]) (Primary Dx); Second trimester ([facility]); 28 weeks gestation of ([facility]) 03/06/2025 [place] [address] Elizabeth Hoang PA 03/06/2025 Travel 03/01/2025 Results [place] [address] Diana Heart, DAM TENDER ASSISTANT 03/01/2025 [place] [address] Diana Heart, DAM TENDER ASSISTANT 02/24/2025 Clinisync Result Encounter NOMS External Department Unsolicited Zion Dai, 02/23/2025 Travel 02/01/2025 3:50 [place] [address] Zion Dai, Diabetes mellitus screening; Second trimester fetus ([facility]); 23 weeks gestation of ([facility]) 02/01/2025 [place] [address] Zion Dai, 01/25/2025 Travel 01/17/2025 [place] [address] Radha CassidyTAMEKA 01/16/2025 Clinisync Result Encounter NOMS External Department Unsolicited Elizabeth Hoang PA 01/16/2025 Clinisync Result Encounter NOMS External Department Unsolicited Elizabeth Hoang PA 01/05/2025 2:40 PM [place] [address] Elizabeth Hoang PA Second trimester ([facility]); 20 weeks gestation of ([facility]); Screening, , for anatomic survey ([facility]); Well woman exam with routine gynecological exam; STD exposure 01/05/2025 Clinisync Result Encounter NOMS External Department Unsolicited Elizabeth Hoang PA 01/05/2025 External Result Encounter NOMS External Department Unsolicited Elizabeth Hoang PA 01/05/2025 [place] [address] Elizabeth Hoang PA 01/04/2025 Travel from Last 3 Months Family History [...] Description 04/03/2025 3:50 PM EDT Routine [place] [phone] Zion Dai, DO [address] [facility] [place] [address] Procedures Procedure Name Priority Date/Time Associated Diagnosis Comments POCT URINALYSIS DIPSTICK Routine 03/22/2025 1:48 PM EDT 30 weeks gestation of ([facility]) Third trimester ([facility]) US OB FOLLOW UP TRANSABDOMINAL APPROACH Routine 03/22/2025 1:22 PM EDT size inconsistent with dates ([facility]) GLUCOSE TOLERANCE 3 HOUR Routine 03/09/2025 7:37 AM EDT GLUCOSE 1 HOUR Routine 02/24/2025 3:55 PM EDT ALL CBC WITH AUTO DIFF Routine 3:55 PM EDT POCT URINALYSIS DIPSTICK Routine 02/01/2025 4:13 PM EDT Second trimester fetus ([facility]) 23 weeks gestation of ([facility]) US OB CERVICAL LENGTH 01/16/2025 4:52 PM EDT US OB ANATOMY 01/16/2025 4:52 PM EDT RECURRENT VAGINITIS (HTRX) Routine 01/05/2025 3:26 PM EDT POCT URINALYSIS DIPSTICK Routine 01/05/2025 3:12 PM EDT Second trimester ([facility]) IGP,APTIMA HPV,AGE GDLN Routine 01/05/2025 2:44 PM EDT PAP SMEAR Routine 01/05/2025 12:00 AM EDT from Last 3 Months Results * (ABNORMAL) POCT urinalysis dipstick manually resulted (03/22/2025 1:48 PM EDT) Only the most recent of3 [...] - Positive Urine 03/22/2025 1:48 PM EDT us [facility] Limazio DO POINT OF CARE TEST ENTER/EDIT OR DERABLES Final Result * US OB follow up transabdominal approach [...] IMG OB US PROCEDURES Final Re sult * GLUCOSE TOLERANCE 3 HOUR (03/09/2025 7:37 AM EDT) GLUCOSE TOLERANCE 3 HOUR mg/dL [facility] Comment: GLU FAST 87 (<95) Col: 03/09/25 0737 GLU 1HR 163 (<180) Col: 03/09/25 0844 GLU 2HR 142 (<155) Col: 03/09/25 0942 GLU 3HR 123 (<140) Col: 03/09/25 1042 03/09/2025 7:37 AM EDT 03/09/2025 7:38 AM EDT Narrative CLINISYNC - 03/09/2025 11:43 AM EDT Zion Malaika DO LAB BLOOD ORDERABLES Final Resul t [facility] TB * (ABNORMAL) GLUCOSE 1 HOUR (02/24/2025 3:55 PM EDT) GLUCOSE 1 HOUR 157(H) <130 mg/dL [facility] 02/24/2025 3:55 PM EDT 02/24/2025 4:03 PM EDT Narrative CLINISYNC - 02/24/2025 4:43 PM EDT M-DISC DO LAB BLOOD ORDERABLES Final Resul t [facility] TB * (ABNORMAL) ALL CBC WITH AUTO DIFF (02/24/2025 3:55 PM EDT) Pathologist [facility] TB WBC 9.5 4.0 - 11.0 10 3/uL TBH TBH RBC 3.74(L) 4.20 - 5.40 10 6/uL TBH TBH HGB 11.4(L) 12.0 - 16.0 g/dL TBH TBH HCT 33.8(L) 36.0 - 48.0 % TBH TBH MCV 90.4 81.0 - 99.0 fL TBH TBH MCH 30.5 26.7 - 34.0 pg TBH TBH MCHC 33.7 29.9 - 35.2 g/dL TBH TBH RDW 12.6 11.0 - 15.0 % TBH TBH PLT 252 150 - 450 10 3/uL TBH TBH MPV 10.1 9.5 - 13.5 fL TBH NEUTROPHILS PERCENT AUTO 71.9 43.0 - 75.0 % TBH LYMPHOCYTES PERCENT AUTO 20.9 20.5 - 60.0 % TBH MONOCYTES PERCENT AUTO 5.7 1.7 - 12.0 % TBH TBH EO % 1.0 0.9 - 7.0 % TBH BASOPHILS PERCENT AUTO 0.1(L) 0.2 - 2.0 % TBH IMMATURE GRANULOCYTES PCT AUTO 0.4 0.0 - 0.5 % TBH NEUTROPHILS ABSOLUTE AUTO 6.9(H) 1.4 - 6.5 10 3/uL TBH LYMPHOCYTES ABSOLUTE AUTO 2.0 1.2 - 3.8 10 3/uL TBH MONOCYTES ABSOLUTE AUTO 0.5 0.3 - 0.8 10 3/uL TBH TBH EO # 0.1 0.0 - 0.7 10 3/uL TBH BASOPHILS ABSOLUTE AUTO 0.0 0.0 - 0.1 10 3/uL TBH IMMATURE GRANULOCYTES ABS AUTO 0.04(H) 0.00 - 0.03 10 3/uL TBH 02/24/2025 3:55 PM EDT 02/24/2025 4:03 PM EDT Narrative CLINISYNC - 02/24/2025 4:15 PM EDT us Zion Malaika DO CLINISYNC Final Result CLINISYNC [facility] * US OB CERVICAL LENGTH (01/16/2025 4:52 PM EDT) Anatomical Region Laterality Modality Other 01/16/2025 4:52 PM EDT Narrative 01/16/2025 4:55 [place] [address] Ultrasound Report Signed Patient: TERESA NGUYEN MR#: [id number] : 2000 Acct:[id number] Age/Sex: 24 / F ADM Date: 01/16/25 Loc: US Attending Dr: Elizabeth Hoang Ordering Physician: Elizabeth Hoang Date of Service: 01/16/25 Procedure(s): US OB cervical length Accession Number(s): [id number] cc: Elizabeth Hoang; Physician,Non-Staff Fady The [place] [id number] Patient Name: TERESA NGUYEN MRN: [id number] date: 2000 Sex: F Assigned Patient Location: Current Patient Location: Accession/Order Number: [id number] Exam Date: 01/16/2025 16:46 Report Date: 01/16/2025 16:52 At the request of: ELIZABETH HOANG Procedure: US OB cervical length Obstetrical Ultrasound for Fetus greater than 14 weeks HISTORY: anatomy assessment heart rate is 138 bpm. The fetus is in cephalic presentation with longitudinal lie. The placenta is in a posterior position with normal appearance. Amniotic fluid subjectively normal. The cervix has a length of 4.3cm. Cervical os is closed. The estimated weight is 459 g. with percentile of 82.7%. The ovaries are not visualized. No fluid identified in the cul-de-sac. Following anatomy identified: Nose and lips, spine, four-chamber heart, stomach, cord insertion, three-vessel cord, kidneys, urinary bladder, 12 long bones and diaphragm. Echogenic focus of the left ventricle measures 3 mm. The biparietal diameter measures 5.3cm consistent with 22 weeks 1 day. Head circumference measures 19.6cm consistent with 21 weeks 6 days. Abdominal circumference measures 17.5cm consistent with 22 weeks 3 days. Femur length is 3.6cm consistent with 21 weeks 2 days. The average gestational age is 22 weeks 0 days. Estimated due date is 05/22/2025. somatic motion identified. US/US OB cervical length IMPRESSION: Single live intrauterine gestation 22 weeks earlier days. The anatomy as above. Cervical length 4.3 cm. Impression dictated by: Andres Espinoza M.D. 01/16/2025 4:52 PM Dictation Location: [facility] Electronically authenticated by: [id number] Y Date: 01/16/2025 16:52 Dictated By: Andres Espinoza D.O. Signed By: 01/16/251654 DD/ 51 TD/TT: Sales Associate Key Holder: Procedure Note Radiology, Radiologist, MD - 01/16/[address] [address] Ultrasound Report Signed Patient: TERESA NGUYEN NMR#: [id number] : 2000Acct:[id number] Age/Sex: 24 / FADM Date: 01/16/25 Loc: US Attending Dr: Elizabeth Hoang Ordering Physician: Elizabeth Hoang Date of Service: 01/16/25 Procedure(s): US OB cervical length Accession Number(s): [id number] cc: Elizabeth Hoang; Physician,Non-Staff M.DGeoffrey The [address] [address] Patient Name: TERESA NGUYEN MRN: [id number] date: 2000 Sex: F Assigned Patient Location: US Current Patient Location: US Accession/Order Number: [id number] Exam Date: 01/16/2025 16:46 Report Date: 01/16/2025 16:52 At the request of: ELIZABETH HOANG Procedure: US OB cervical length Obstetrical Ultrasound for Fetus greater than 14 weeks HISTORY: anatomy assessment heart rate is 138 bpm. The fetus is in cephalic presentation with longitudinal lie. The placenta is in a posterior position with normal appearance. Amniotic fluid subjectively normal. The cervix has a lengthof 4.3cm. Cervical os is closed. The estimated weight is 459 g. with percentile of 82.7%. The ovaries are not visualized. No fluid identified in the cul-de-sac. Following anatomy identified: Nose and lips, spine, four-chamberheart, stomach, cord insertion, three-vessel cord, kidneys, urinary bladder, 12long bones and diaphragm. Echogenic focus of the left ventricle measures 3 mm. The biparietal diameter measures 5.3cm consistent with 22 weeks 1 day. Head circumference measures 19.6cm consistent with 21 weeks 6 days. Abdominal circumference measures 17.5cm consistent with 22 weeks 3 days. Femur length is 3.6cm consistent with 21 weeks 2 days. The average gestational age is 22 weeks 0 days. Estimated due date is 05/22/2025. somatic motion identified. US/US OB cervical length IMPRESSION: Single live intrauterine gestation 22 weeks earlier days. The anatomy as above. Cervical length 4.3 cm. Impression dictated by: Andres Espinoza M.D. 01/16/2025 4:52 PM Dictation Location: [place] [address] Electronically authenticated by: [id number] Y Date: 6:52 Dictated By: Andres Espinoza D.O. Signed By:01/16/251654 DD/ 51 TD/TT: Sales Associate Key Holder: us Elizabeth CARDONA [facility] IMAGING Final Result * US OB ANATOMY (01/16/2025 4:52 PM EDT) Anatomical Region Laterality Modality Other 01/16/2025 4:52 PM EDT Narrative 01/16/2025 4:55 [place] [address] Ultrasound Report Signed Patient: TERESA NGUYEN MR#: [id number] : 2000 Acct:[id number] Age/Sex: 24 / F ADM Date: 01/16/25 Loc: US Attending Dr: Elizabeth Hoang Ordering Physician: Elizabeth Hoang Date of Service: 01/16/25 Procedure(s): US OB anatomy Accession Number(s): [id number] cc: Elizabeth Hoang; Physician,Non-Staff Fady The [address] [address] Patient Name: TERESA NGUYEN MRN: [id number] date: 2000 Sex: F Assigned Patient Location: US Current Patient Location: US Accession/Order Number: [id number] Exam Date: 01/16/2025 16:46 Report Date: 01/16/2025 16:52 At the request of: ELIZABETH HOANG Procedure: US OB cervical length Obstetrical Ultrasound for Fetus greater than 14 weeks HISTORY: anatomy assessment heart rate is 138 bpm. The fetus is in cephalic presentation with longitudinal lie. The placenta is in a posterior position with normal appearance. Amniotic fluid subjectively normal. The cervix has a length of 4.3cm. Cervical os is closed. The estimated weight is 459 g. with percentile of 82.7%. The ovaries are not visualized. No fluid identified in the cul-de-sac. Following anatomy identified: Nose and lips, spine, four-chamber heart, stomach, cord insertion, three-vessel cord, kidneys, urinary bladder, 12 long bones and diaphragm. Echogenic focus of the left ventricle measures 3 mm. The biparietal diameter measures 5.3cm consistent with 22 weeks 1 day. Head circumference measures 19.6cm consistent with 21 weeks 6 days. Abdominal circumference measures 17.5cm consistent with 22 weeks 3 days. Femur length is 3.6cm consistent with 21 weeks 2 days. The average gestational age is 22 weeks 0 days. Estimated due date is 05/22/2025. somatic motion identified. US/US OB anatomy IMPRESSION: Single live intrauterine gestation 22 weeks earlier days. The anatomy as above. Cervical length 4.3 cm. Impression dictated by: Andres Espinoza M.D. 01/16/2025 4:52 PM Dictation Location: [place] [address] Electronically authenticated by: [id number] Y Date: 01/16/2025 16:52 Dictated By: Andres Espinoza D.O. Signed By: 01/16/251654 DD/ 51 TD/TT: Sales Associate Key Holder: Procedure Note Radiology, Radiologist, - 01/16/2025 [place] [address] Ultrasound Report Signed Patient: TERESA NGUYEN [facility]#: [id number] : 2000Acct:[id number] Age/Sex: 24 / FADM Date: 01/16/25 Loc: US Attending Dr: Elizabeth Hoang Ordering Physician: Elizabeth Hoang Date of Service: 01/16/25 Procedure(s): US OB anatomy Accession Number(s): [id number] cc: Elizabeth Hoang; Physician,Non-Staff Fady The [place] [address] Patient Name: TERESA NGUYEN MRN: [facility]:[id number] date: 2000 Sex: F Assigned Patient Location: Current Patient Location: US Accession/Order Number: [id number] Exam Date: 01/16/2025 16:46 Report Date: 01/16/2025 16:52 At the request of: ELIZABETH HOANG Procedure: US OB cervical length Obstetrical Ultrasound for Fetus greater than 14 weeks HISTORY: anatomy assessment heart rate is 138 bpm. The fetus is in cephalic presentation with longitudinal lie. The placenta is in a posterior position with normal appearance. Amniotic fluid subjectively normal. The cervix has a lengthof 4.3cm. Cervical os is closed. The estimated weight is 459 g. with percentile of 82.7%. The ovaries are not visualized. No fluid identified in the cul-de-sac. Following anatomy identified: Nose and lips, spine, four-chamberheart, stomach, cord insertion, three-vessel cord, kidneys, urinary bladder, 12long bones and diaphragm. Echogenic focus of the left ventricle measures 3 mm. The biparietal diameter measures 5.3cm consistent with 22 weeks 1 day. Head circumference measures 19.6cm consistent with 21 weeks 6 days. Abdominal circumference measures 17.5cm consistent with 22 weeks 3 days. Femur length is 3.6cm consistent with 21 weeks 2 days. The average gestational age is 22 weeks 0 days. Estimated due date is 05/22/2025. somatic motion identified. US/US OB anatomy IMPRESSION: Single live intrauterine gestation 22 weeks earlier days. The anatomy as above. Cervical length 4.3 cm. Impression dictated by: Andres Espinoza M.D. 01/16/2025 4:52 PM Dictation Location: [place] [address] Electronically authenticated by: [id number] Y Date: 6:52 Dictated By: Andres Espinoza D.O. Signed By:01/16/251654 DD/ 51 TD/TT: Sales Associate Key Holder: Elizabeth [facility] Final Result * RECURRENT VAGINITIS (HTRX) (01/05/2025 3:26 PM EDT) ATOPOBIUM VAGINAE 0.000 19.961 - 24.689 ppm 01/06/2025 6:28 AM EDT [facility] ATOPOBIUM VAGINAE Not Detected 19.961 - 24.689 ppm 01/06/2025 6:28 AM EDT [facility] BVAB 2,3 (BACTERIAL VAGINOSIS ASSOCIATED BACTERIA 2, 3); MOBILUNCUS SPP 0.000 19.961 - 24.689 ppm 01/06/2025 6:28 AM EDT [facility] BVAB 2,3 (BACTERIAL VAGINOSIS ASSOCIATED BACTERIA 2, 3); MOBILUNCUS SPP Not Detected 19.961 - 24.689 ppm 01/06/2025 6:28 AM EDT [facility] TERRANCE ALBICANS, PARAPSILOSIS, TROPICALIS 0.000 19.961 - 30.770 ppm 01/06/2025 6:28 AM EDT [facility] TERRANCE ALBICANS, PARAPSILOSIS, TROPICALIS Not Detected 19.961 - 30.770 ppm 01/06/2025 6:28 AM EDT [facility] TERRANCE GLABRATA 0.000 23.000 - 32.138 ppm 01/06/2025 6:28 AM EDT [facility] TERRANCE GLABRATA Not Detected 23.000 - 32.138 ppm 01/06/2025 6:28 AM EDT [facility] TERRANCE KRUSEI 0.000 23.000 - 32.271 ppm 01/06/2025 6:28 AM EDT [facility] TERRANCE KRUSEI Not Detected 23.000 - 32.271 ppm 01/06/2025 6:28 AM EDT [facility] CHLAMYDIA TRACHOMATIS 0.000 23.000 - 31.467 ppm 01/06/2025 6:28 AM EDT [facility] CHLAMYDIA TRACHOMATIS Not Detected 23.000 - 31.467 ppm 01/06/2025 6:28 AM EDT [facility] GARDNERELLA VAGINALIS 0.000 19.961 - 24.689 ppm 01/06/2025 6:28 AM EDT [facility] GARDNERELLA VAGINALIS Not Detected 19.961 - 24.689 ppm 01/06/2025 6:28 AM EDT [facility] MEGASPHAERA (TYPES 1, 2) 0.000 19.961 - 24.689 ppm 01/06/2025 6:28 AM EDT [facility] MEGASPHAERA (TYPES 1, 2) Not Detected 19.961 - 24.689 ppm 01/06/2025 6:28 AM EDT [facility] NEISSERIA GONORRHOEAE 0.000 23.000 - 32.117 ppm 01/06/2025 6:28 AM EDT [facility] NEISSERIA GONORRHOEAE Not Detected 23.000 - 32.117 ppm 01/06/2025 6:28 AM EDT [facility] TRICHOMONAS VAGINALIS 0.000 23.000 - 32.119 ppm 01/06/2025 6:28 AM EDT [facility] TRICHOMONAS VAGINALIS Not Detected 23.000 - 32.119 ppm 01/06/2025 6:28 AM EDT [facility] MYCOPLASMA GENITALIUM 0.000 19.961 - 24.689 ppm 01/06/2025 6:28 AM EDT [facility] MYCOPLASMA GENITALIUM Not Detected 19.961 - 24.689 ppm 01/06/2025 6:28 AM EDT [facility] Tissue 01/05/2025 3:26 PM EDT 01/06/2025 1:28 AM EDT us Elizabeth CARDONA LAB BLOOD ORDERABLES Final Resul t [facility] [address] [place] [address] * IGP,APTIMA HPV,AGE GDLN (01/05/2025 2:44 PM EDT) Pathologist [facility] AGE GDLN ACOG TESTING Note . TB Comment: TESTS RESULT FLAG UNITS REF RANGE LAB Clinician Provided Cytology Information Source.............[employer] Other.............. No. of containers..01 ThinPrep Vial Age Maximo HUMPHREY Brenda... FLAG LEGEND: L-Low Normal,H-High Normal,LL-Alert Low,HH-Alert High <-Panic Low,>-Panic High,A-Abnormal,AA-Critical Abnormal Performed at: 01 =[facility] [address] Marysol Wren MD, IGP, RFX APTIMA HPV ASCU Note . [facility] Comment: TESTS RESULT FLAG UNITS REF RANGE LAB DIAGNOSIS: 02 NEGATIVE FOR INTRAEPITHELIAL LESION OR MALIGNANCY. Specimen adequacy: 02 Satisfactory for evaluation. No endocervical component is identified. An endocervical component is not commonly seen in the patient. Performed by: Maru Sim, Primer Waterproofing Machine Adjuster ([facility]) . 02 Note: Note 02 The Pap [...] <-Panic Low,>-Panic High,A-Abnormal,AA-Critical Abnormal Performed at: [address] [address] Marysol Wren MD, Performed at: = - [facility] [id number] Pega Developer: Marysol Wren MD, Phone: [phone] Performed at: [address] [id number] Pega Developer: Marysol Wren MD, Phone: [phone] 01/05/2025 2:44 PM EDT 01/06/2025 6:16 AM EDT Narrative CLINISYNC - 01/11/2025 2:08 PM EDT [facility] ENDOCERVIX Elizabeth CARDONA LAB BLOOD ORDERABLES Final Resul t [facility]IN[facility] * Pap Smear (01/05/2025 12:00 AM EDT) Swab Cervical swab / Unknown Malaika [facility] LAB CYTOLOGY ORDERABLES Final Result EXTERNAL LAB from Last 3 Months Insurance
[2025-03-28 16:29] VITALS: BP 117/58; PULSE 95
== END 2025-03-28 17:15 | disposition home or self-care (01) ==
LOC: US 16:00 → FBC 16:06
PROVIDERS: Visit Provider Obstetrics & Gynecology
DX: O36.63X0 Maternal care for excessive fetal growth, third trimester, not applicable or unspecified (principal)
CPT/HCPCS: 76818

== ENCOUNTER 2025-03-31 15:59 | Outpatient (OUT) | payer BC, SELFPAY ==
--- OUTSIDE RECORDS SUMMARY | 2025-03-22 13:00 | XMS_ITS | Encounter Summary ---
Author Organization [facility] Address [address] [place] [address] Care Team Providers Care Line Installer Repairer Name Role Phone Unavailable Primary Care Provider Unavailabl e Encounter Details Date Type Department Care Team (Latest Contact Info) Description 03/22/2025 1:00 PM EDT Ancillary Procedure ARNOLDO OLIVA [address] [place] [address] size inconsistent with dates ([facility]) Social History Tobacco Use Types Packs/Day Years [...] Care Team (Late st Contact Info) Description 04/03/2025 3:50 PM EDT Routine ARNOLDO OLIVA [address] [place] [address] Zion Dai DO [address] [place], [place] [id number] documented as of this encounter Procedures Procedure Name Priority Date/Time Associated Diagnosis Comments US OB FOLLOW UP TRANSABDOMINAL APPROACH Routine 03/22/2025 1:22 PM EDT size inconsistent with dates ([facility]) documented in this encounter Results * US OB follow up transabdominal approach (03/22/2025 1:22 PM EDT) Anatomical Region Laterality Modality Body Ultrasound 03/23/2025 12:2 4 PM EDT Impressions 03/23/2025 1:00 PM EDT 1. Current sonographic age of 33 weeks and 3 days with estimated delivery of May 07, 2025. 2. Prior weight was 82.7%. Prior delivery was May 22, 2025. 3. Polyhydramnios, 26 KATE. TRANSCRIBED BY: ELECTRONICALLY SIGNED BY: Albert Snider MD Narrative 03/23/2025 1:00 PM EDT FINDINGS: Comparison made with prior examination of January 16, 2025. A single, live intrauterine is present with normal cardiac rate of 142 beats per minute. Normal activity and amniotic fluid volume. Amniotic fluid index is 26 cm largest fluid pocket 8.4 cm. Cervix is not measured on the current examination. The placenta is anterior, not associated with the cervical os. The current sonographic age is 33 weeks and 3 days, based on the following measurements: BPD: 8.5cm (34 week, 2 days) Head Circumference : 31.3cm (35 week, 0 days) Abdomen Circumference: 29.5 cm ( 33weeks 3 days ) Femur Length: 6.0 cm (31 weeks 1days) Presentation: Transverse Weight (g) by Percentile Greater than 97% * These measurements result in an estimated date of delivery of May 07, 2025 The current estimated weight is 2103 grams +/- 315( 4 pound, 10 ounces). Procedure Note Albert Snider MD - 03/23/2025 FINDINGS: Comparison made with prior examination of January 16, 2025. A single, liveintrauterine is present with normal cardiac rate of 142beats per minute. Normal activity and amniotic fluid volume.Amniotic fluid index is 26 cm largest fluid pocket 8.4 cm. Cervix is notmeasured on the current examination. The placenta is anterior, notassociated with the cervical os. The current sonographic age is 33 weeksand 3 days, based on the following measurements: BPD: 8.5cm (34 week, 2 days) Head Circumference : 31.3cm (35 week, 0 days) Abdomen Circumference: 29.5 cm ( 33weeks 3 days ) Femur Length: 6.0 cm (31 weeks 1days) Presentation: Transverse Weight (g) by Percentile Greater than 97% * These measurements result in an estimated date of delivery of 2024 The current estimated weight is 2103 grams +/- 315( 4pound, 10 ounces). IMPRESSION: 1. Current sonographic age of 33 weeks and 3 days with estimated deliveryof May 07, 2025. 2. Prior weight was 82.7%. Prior delivery was May 22, 2025. 3. Polyhydramnios, 26 KATE. TRANSCRIBED BY: ELECTRONICALLY SIGNED BY: Albert Snider MD us Juani Aldrich NP IMG OB US PROCEDURES Final Re sult documented in this encounter Visit Diagnoses Diagnosis size inconsistent with dates ([facility]) documented in this encounter
--- OUTSIDE RECORDS SUMMARY | 2025-03-22 13:30 | XMS_ITS | Encounter Summary ---
Author Organization [facility] Address [address] [place] [address] Care Team Providers Care Pickling Machine Operator Name Role Phone Unavailable Primary Care Provider Unavailabl e Reason for Visit * Reason Comments Routine Visit Encounter Details Date Type Department [facility] Description 03/22/2025 1:30 PM EDT Routine [facility] [place] [facility] [address] [place] [address] Zion Dai DO [address] [place] [address] [place] [address] 30 weeks gestation of ([facility]); Third trimester ([facility]); Elevated glucose tolerance test Social History Tobacco Use Types Packs/Day Years [...] Sign Reading Time Taken Comments Blood Pressure 120/68 03/22/2025 1:46 PM EDT Pulse - - Temperature - - Respiratory Rate - - Oxygen Saturation - - Inhaled Oxygen Concentration - - Weight 82 kg (180 lb 12.8 oz) 03/22/2025 1:46 PM EDT Height - - Body Mass Index - - documented in this encounter Progress Notes * Juani Aldrich NP - 03/22/2025 1:30 PM EDT Reason for Appointment: Patient ID: Ayala Bradford is a 24 y.o. female who presents for Routine Visit Patient presents today for Return OB appointment. MEDICATIONS No current outpatient medications ALLERGIES No Known Allergies PROBLEMS Active Ambulatory Problems Diagnosis Date Noted Diabetes mellitus screening 02/01/2025 Second trimester fetus ([facility]) 02/01/2025 23 weeks gestation of ([facility]) 02/01/2025 Resolved Ambulatory Problems Diagnosis Date Noted No [...] Exam Constitutional: Appearance: Normal appearance. She is well-developed. Cardiovascular: Rate and Rhythm: Normal rate and regular rhythm. Pulmonary: Effort: Pulmonary effort is normal. Breath sounds: Normal breath sounds. Abdominal: General: Bowel sounds are normal. There is no distension. Palpations: Abdomen is soft. Tenderness: There is no abdominal tenderness. There is no guarding or rebound. Musculoskeletal: General: No swelling. Normal range of motion. Right lower leg: No edema. Left lower leg: No edema. Neurological: Mental Status: She is alert and oriented to person, place, and time. Skin: General: Skin is warm and dry. Psychiatric: Mood and Affect: Mood normal. Behavior: Behavior normal. Vitals and nursing note reviewed. Exam conducted with a cable television access coordinator present. Vitals: There is no height or weight on file to calculate BMI. BP: 120/68 Patient's last menstrual period was 08/21/2024. ASSESSMENT & PLAN ICD-10-CM 1. 30 weeks gestation of ([facility]) Z3A.30 POCT urinalysis dipstick manually resulted 2. Third trimester ([facility]) Z34.93 POCT urinalysis dipstick manually resulted 3. Elevated glucose tolerance test R73.09 Return OB: Patient presents today for a routine obstetrics appointment. Patient is currently 30w3d . Patient states she is doing well but has complaints of being tired due to current . Patient has verbalizes frequent movement. labor precautions was discussed/given and patient was instructed to perform kick counts three times a day. Orders Placed This Encounter Procedures POCT urinalysis dipstick manually resulted Follow Up: Patient is to return to office in 2 week for routine OB appointment. Growth ultrasound at 97% and Polyhydramnios will begin NST and BPP. Documented by Juani Aldrich NP on behalf of: Zion Dai DO documented in this encounter Plan of Treatment Upcoming Encounters Date Type Department Care Team (Late st Contact Info) Description 04/03/2025 3:50 PM EDT Routine [facility] [address] [place] [address] Zion Dai DO [address] [place], [place] [id number] documented as of this encounter Procedures Procedure Name Priority Date/Time Associated Diagnosis Comments POCT URINALYSIS DIPSTICK Routine 03/22/2025 1:48 PM EDT 30 weeks gestation of ([facility]) Third trimester ([facility]) documented in this encounter Results * (ABNORMAL) POCT urinalysis dipstick manually resulted (03/22/2025 1:48 PM EDT) Color, UA Yellow Clarity, UA Clear Glucose, UA Negative Negative - 2000(110) ++++ mg/dL Bilirubin, UA Negative Negative - 4(70) +++ mg/dL Ketones, UA Negative Negative - 160(16) ++++ mg/dL Spec Grav, UA 1.005 1 - 1.03 Blood, UA Negative Negative - 50 Dany/mcL pH, UA 6.0 5 - 9 Protein, UA Negative Negative - 2000(20) ++++ mg/dL Urobilinogen, UA 1.0 0.2 - 12 mg/dL Leukocytes, UA Negative Negative - 500+++ Luz/mcL Nitrite, UA Negative Negative - Positive Urine 03/22/2025 1:48 PM EDT Zion Dai DO POINT OF CARE TEST ENTER/EDIT OR DERABLES Final Result documented in this encounter Visit Diagnoses Diagnosis 30 weeks gestation of ([facility]) Third trimester ([facility]) state, incidental Elevated glucose tolerance test Impaired glucose tolerance test documented in this encounter
--- OUTSIDE RECORDS SUMMARY | 2025-03-31 16:02 | XMS_ITS | Encounter Summary ---
Author Organization [facility] Address [address] [place] [address] Care Team Providers Care Board Certified Behavioral Analyst Name Role Phone Unavailable Primary Care Provider Unavailabl e Encounter Details Date Type Department Care Team (Late Contact Info) Description 03/28/2025 Telephone [facility] OLIVA [address] [facility] [place] [address] Diana Heart LPN [address] [place] [address] Social History Tobacco Use Types Packs/Day Years [...] PM EDT Routine [facility] Tom OLIVA [address] [email or web address] [address] Zion Dai DO [address] [place] [address] Scheduled Orders Name Type Priority Associated Diagnoses [...]
--- OUTSIDE RECORDS SUMMARY | 2025-03-31 16:02 | XMS_ITS | Encounter Summary ---
Author Organization [facility] Address [address] [place] [address] Care Team Providers Care Bus Aide Name Role Phone Unavailable Primary Care Provider Unavailabl e Encounter Details Date Type Department Care Team ([facility] Contact Info) Description 03/27/2025 Telephone [facility] OBGYJoseph [address] [place] [address] Diana Heart LPN [address] [place] [id number] Social History Tobacco Use Types Packs/Day Years [...] guys could give me a call at [phone]. That would be awesome, thank you. I told pt that it was probably just due to her heartburn/acid reflux and offered to send in medication for that. PVU documented in this encounter Plan of Treatment Upcoming Encounters Date Type Department Care Team (Late st Contact Info) Description 04/03/2025 3:50 PM EDT Routine [facility] OBG[facility] [address] [place] [phone] Zion Dai DO [address] [place], [place] [phone] documented as of this encounter Visit Diagnoses Diagnosis Gastroesophageal reflux in ([facility]) documented in this encounter
--- OUTSIDE RECORDS SUMMARY | 2025-03-31 16:02 | XMS_ITS | Encounter Summary ---
Author Organization [facility] Address [address] [place] [address] Care Team Providers Care Applied Computer Science Professor Name Role Phone Unavailable Primary Care Provider Unavailabl e Encounter Details Date Type Department Care Team (Late st Contact Info) Description 03/28/2025 Clinisync Result Encounter NOMS External Department Unsolicited Reinaldo Dai, DO [address] [place] [address] Social History Tobacco Use Types Packs/Day Years [...] Description 04/03/2025 3:50 PM EDT Routine [facility] [place] [facility] [address] [facility] [place] [phone] Reinaldo Dai DO [address] [place] [address] documented as of this encounter Procedures Procedure Name Priority Date/Time Associated Diagnosis Comments US OB BPP W NON-STRESS 03/28/2025 4:35 PM EDT documented in this encounter Results * US OB BPP W NON-STRESS (03/28/2025 4:35 PM EDT) Anatomical Region Laterality Modality Other 03/28/2025 4:35 PM EDT Narrative 03/28/2025 4:38 [place] [address] Ultrasound Report Signed Patient: TERESA BRADFORD MR#: [id number] : 2000 Acct:[id number] Age/Sex: 24 / F ADM Date: 03/28/25 Loc: [facility] 250-[address]: Reinaldo Dai D.O. Ordering Physician: Reinaldo Dai D.O. Date of Service: 03/28/25 Procedure(s): US OB BPP w non-stress Accession Number(s): [id number] cc: Reinaldo Dai D.O.; Physician,Non-Staff Fady [place] [address] Patient Name: TERESA BRADFORD MRN: [id number] date: 2000 Sex: F Assigned Patient Location: US Current Patient Location: US Accession/Order Number: [id number] Exam Date: 03/28/2025 16:35 Report Date: 03/28/2025 16:35 At the request of: REINALDO DAI DO Procedure: US OB BPP w non-stress Biophysical profile. Reason for exam: Excessive growth COMPARISON: None TECHNIQUE: Transabdominal imaging of the gravid uterus was obtained. FINDINGS: The peripatologist reports a BPP of 8 out of 8. KATE is normal at 21.1 cm. heart rate 145 bpm. US/US OB BPP w non-stress IMPRESSION: BPP 8 out of 8. Impression dictated by: Albert Dodge Jr., D.O. 03/28/2025 4:35 PM Dictation Location: [place] [address] Electronically authenticated by: [id number] Y Date: 03/28/2025 16:35 Dictated By: Albert Dodge M.D. Signed By: [id number] DD/ 34 TD/TT: Assembler Truck Trailer: Procedure Note Radiology, Radiologist, - 03/28/2025 [place] [address] Ultrasound Report Signed Patient: TERESA BRADFORD NMR#: [id number] : 2000Acct:[id number] Age/Sex: 24 / FADM Date: 03/28/25 Loc: [facility] [address]: Reinaldo Dai D.O. Ordering Physician: Reinaldo Dai D.O. Date of Service: 03/28/25 Procedure(s): US OB BPP w non-stress Accession Number(s): [id number] cc: Reinaldo Dai D.O.; Physician,Non-Staff Fady [address] [place] [address] Patient Name: TERESA BRADFORD MRN: [facility]:[id number] date: 2000 Sex: F Assigned Patient Location: US Current Patient Location: US Accession/Order Number: [id number] Exam Date: 03/28/2025 16:35 Report Date: 03/28/2025 16:35 At the request of: REINALDO DAI DO Procedure: US OB BPP w non-stress Biophysical profile. Reason for exam: Excessive growth COMPARISON: None TECHNIQUE: Transabdominal imaging of the gravid uterus was obtained. FINDINGS: The peripatologist reports a BPP of 8 out of 8. KATE is normal at21.1 cm. heart rate 145 bpm. US/US OB BPP w non-stress IMPRESSION: BPP 8 out of 8. Impression dictated by: Albert Dodge Jr., D.O. 03/28/2025 4:35 PM Dictation Location: [place] [address] Electronically authenticated by: [id number] Y Date: 6:35 Dictated By: Albert Dodge M.D. Signed By:03/28/251637 DD/ 34 TD/TT: Assembler Truck Trailer: us Reinaldo Dai DO [facility] Final Result documented in this encounter Visit Diagnoses Not on filedocumented in this encounter
--- OUTSIDE RECORDS SUMMARY | 2025-03-31 16:02 | XMS_ITS | Encounter Summary ---
Author Organization [facility] Address [address] [place] [address] Care Team Providers Care Asbestos Microscopist Name Role Phone Unavailable Primary Care Provider Unavailabl e Encounter Details Date Type Department Care Team (Late Contact Info) Description 12/19/2024 Abstract ARNOLDO OLIVA [address] [place] [phone] Zion Dai DO [address] [place], [facility] Social History Tobacco Use Types Packs/Day [...] EDT Routine ARNOLDO OLIVA [address] [place] [address] Zion Dai DO [address] [place], [place] [phone] documented as of this encounter Visit Diagnoses Not on filedocumented in this encounter
--- OUTSIDE RECORDS SUMMARY | 2025-03-31 16:02 | XMS_ITS | Encounter Summary ---
Author Organization [facility] Address [address] [place] [address] Care Team Providers Care Chief Estimator Name Role Phone Unavailable Primary Care Provider Unavailabl e Encounter Details Date Type Department Care Team (Late Contact Info) Description 03/01/2025 Results Follow-Up ARNOLDO OLIVA [address] [place] [address] Diana Heart LPN [address] [place] [employer] [place] [phone] ALL CBC WITH AUTO DIFF, GLUCOSE 1 HOUR Social History Tobacco Use Types Packs/Day Years [...] 3:50 PM EDT Routine NOMHarjeet OLIVA [address] [place] [address] Zion Dai, [address] [place] [address] documented as of this encounter Visit Diagnoses Not on filedocumented in this encounter
--- OUTSIDE RECORDS SUMMARY | 2025-03-31 16:02 | XMS_ITS | Clinical Summary ---
Author Organization [facility] Address [address] [place] [address] Care Team Providers Care Creative Assistant Name Role Phone Unavailable Primary Care Provider Unavailabl e Allergies No known active allergies Medications famotidine (Pepcid) 20 MG tabletIndication s:Gastroesophage al Reflux Disease,Heartbur n Take 1 tablet (20 mg) by mouth Daily 30 tablet 11 03/27/2025 Active Active Problems Problem Noted Date Diagnosed Date Diabetes mellitus screening 02/01/2025 Second trimester fetus ([facility]) 02/01/2025 23 weeks gestation of ([facility]) 2024 Estimated Date of Delivery Comme nts Yes 05/28/2025 Based on last me nstrual period of 08/21/2024 Encounters Date Type Department Care Team Description 03/28/2025 Clinisync Result Encounter NOMS External Department Unsolicited Reinaldo Dai DO 03/28/2025 [place] [address] Diana Heart LPN 03/27/20[place] [address] Diana Heart LPN 03/22/2025 1:30 PM [place] [address] Reinaldo Dai DO 30 weeks gestation of ([facility]); Third trimester ([facility]); Elevated glucose tolerance test 03/22/2025 1:00 PM EDT [place] [address] size inconsistent with dates ([facility]) 03/22/2025 Travel 03/09/2025 Clinisync Result Encounter NOMS External Department Unsolicited Reinaldo Dai DO 03/06/2025 2:50 PM [place] [address] Elizabeth Hoang PA size inconsistent with dates ([facility]) (Primary Dx); Second trimester ([facility]); 28 weeks gestation of ([facility]) 03/06/2025 [place] [address] Elizabeth Hoang PA 03/06/2025 Travel 03/01/2025 Results [place] [address] Diana Heart LPN ALL CBC WITH AUTO DIFF, GLUCOSE 1 HOUR 03/01/2025 [place] [address] Diana Heart LPN 02/24/2025 Clinisync Result Encounter NOMS External Department Unsolicited Reinaldo Dai DO 02/23/2025 Travel 02/01/2025 3:50 PM [place] [address] Reinaldo Dai DO Diabetes mellitus screening; Second trimester fetus ([facility]); 23 weeks gestation of ([facility]) 02/01/2025 [place] [address] Reinaldo Dai DO 01/25/2025 Travel 01/17/2025 Orders Only [facility] OLIVA [address] [place] [address] Radha Cassidy LPN 01/16/2025 Clinisync Result Encounter NOMS External Department Unsolicited Elizabeth Hoang PA 01/16/2025 Clinisync Result Encounter NOMS External Department Unsolicited Elizabeth Hoang PA 01/05/2025 2:40 PM [place] [address] Elizabeth Hoang PA Second trimester ([facility]); 20 weeks gestation of ([facility]); Screening, , for anatomic survey ([facility]); Well woman exam with routine gynecological exam; STD exposure 01/05/2025 Clinisync Result Encounter NOMS External Department Unsolicited Elizabeth Hoang PA 01/05/2025 External Result Encounter NOMS External Department Unsolicited Elizabeth Hoang PA 01/05/2025 [place] [phone] Elizabeth Hoang PA 01/04/2025 Travel from Last [...] PM EDT Routine [facility] O[facility]YN [address] [place] [address] MalaikaReinaldo carcamo, DO [address] [facility] [place] [address] Procedures Procedure Name Priority Date/Time Associated Diagnosis Comments US OB BPP W NON-STRESS 03/28/2025 4:35 PM EDT POCT URINALYSIS DIPSTICK Routine 03/22/2025 1:48 PM EDT 30 weeks gestation of ([facility]) Third trimester ([facility]) US OB FOLLOW UP TRANSABDOMINAL APPROACH Routine 03/22/2025 1:22 PM EDT size inconsistent with dates ([facility]) GLUCOSE TOLERANCE 3 HOUR Routine 03/09/2025 7:37 AM EDT GLUCOSE 1 HOUR Routine 02/24/2025 3:55 PM EDT ALL CBC WITH AUTO DIFF Routine 3:55 PM EDT POCT URINALYSIS DIPSTICK Routine 02/01/2025 4:13 PM EDT Second trimester fetus ([facility]) 23 weeks gestation of ([facility]) US OB CERVICAL LENGTH 01/16/2025 4:52 PM EDT US OB ANATOMY 01/16/2025 4:52 PM EDT RECURRENT VAGINITIS (HTRX) Routine 01/05/2025 3:26 PM EDT POCT URINALYSIS DIPSTICK Routine 01/05/2025 3:12 PM EDT Second trimester ([facility]) IGP,APTIMA HPV,AGE GDLN Routine 01/05/2025 2:44 PM EDT PAP SMEAR Routine 01/05/2025 12:00 AM EDT from Last 3 Months Results * US OB BPP W NON-STRESS (03/28/2025 4:35 PM EDT) Anatomical Region Laterality Modality Other 03/28/2025 4:35 PM EDT Narrative 03/28/2025 4:38 [place] [address] Ultrasound Report Signed Patient: TERESA NGUYEN MR#: [id number] : 2000 Acct:[id number] Age/Sex: 24 / F ADM Date: 03/28/25 Loc: [place] [address]: Reinaldo Dai D.O. Ordering Physician: Reinaldo Dai D.O. Date of Service: 03/28/25 Procedure(s): US OB BPP w non-stress Accession Number(s): [id number] cc: Reinaldo Dai D.O.; Physician,Non-Staff M.DGeoffrey [place] [address] Patient Name: TERESA NGUYEN MRN: [facility]:[id number] date: 2000 Sex: F Assigned Patient Location: Current Patient Location: US Accession/Order Number: [id number] Exam Date: 03/28/2025 16:35 Report Date: 03/28/2025 16:35 At the request of: REINALDO DAI DO Procedure: US OB BPP w non-stress Biophysical profile. Reason for exam: Excessive growth COMPARISON: None TECHNIQUE: Transabdominal imaging of the gravid uterus was obtained. FINDINGS: The second worker reports a BPP of 8 out of 8. KATE is normal at 21.1 cm. heart rate 145 bpm. US/US OB BPP w non-stress IMPRESSION: BPP 8 out of 8. Impression dictated by: Albert Dodge Jr., D.O. 03/28/2025 4:35 PM Dictation Location: [place] [address] Electronically authenticated by: [id number] Y Date: 03/28/2025 16:35 Dictated By: Albert Dodge M.D. Signed By: 03/28/258 DD/ 34 TD/TT: Mill Helper: Procedure Note Radiology, Radiologist, MD - 03/28/2025 [place] [address] Ultrasound Report Signed Patient: TERESA NGUYEN NMR#: [id number] : 2000Acct:[id number] Age/Sex: 24 / FADM Date: 03/28/25 Loc: [facility] 250-[address]: Reinaldo Dai D.O. Ordering Physician: Reinaldo Dai D.O. Date of Service: 03/28/25 Procedure(s): US OB BPP w non-stress Accession Number(s): [id number] cc: Reinaldo Dai D.O.; Physician,Non-Staff Fady The [place] [address] Patient Name: TERESA NGUYEN MRN: [id number]:[id number] date: 2000 Sex: F Assigned Patient Location: US Current Patient Location: US Accession/Order Number: [id number] Exam Date: 03/28/2025 16:35 Report Date: 03/28/2025 16:35 At the request of: REINALDO DAI DO Procedure: US OB BPP w non-stress Biophysical profile. Reason for exam: Excessive growth COMPARISON: None TECHNIQUE: Transabdominal imaging of the gravid uterus was obtained. FINDINGS: The second worker reports a BPP of 8 out of 8. KATE is normal at21.1 cm. heart rate 145 bpm. US/US OB BPP w non-stress IMPRESSION: BPP 8 out of 8. Impression dictated by: Albert Dodge Jr., D.O. 03/28/2025 4:35 PM Dictation Location: [place] [address] Electronically authenticated by: [id number] Y Date: 6:35 Dictated By: Albert Dodge M.D. Signed By:03/28/25 1638 DD/ 34 TD/TT: Mill Helper: us Reinaldo Malaika DO [facility] Final Result * (ABNORMAL) POCT urinalysis dipstick manually resulted [...] Positive Urine 03/22/2025 1:48 PM EDT us Reinaldo Malaika DO POINT OF CARE TEST ENTER/EDIT [...] BY: ELECTRONICALLY SIGNED BY: Albert Snider MD Juani Aldrich HOUSEKEEPER CLEANING COOKING IMG OB US PROCEDURES Final Re sult * GLUCOSE TOLERANCE 3 HOUR (03/09/2025 7:37 AM EDT) GLUCOSE TOLERANCE 3 HOUR mg/dL [facility] Comment: GLU FAST 87 (<95) Col: 03/09/25 0737 GLU 1HR 163 (<180) Col: 03/09/25 0844 GLU 2HR 142 (<155) Col: 03/09/25 0942 GLU 3HR 123 (<140) Col: 03/09/25 1042 03/09/2025 7:37 AM EDT 03/09/2025 7:38 AM EDT Narrative [facility] - 03/09/2025 11:43 AM EDT Reinaldo Malaika DO LAB BLOOD ORDERABLES Final Resul t Performing Organization Address City/[facility]/ZIP Co de Phone Number [facility] TB * (ABNORMAL) GLUCOSE 1 HOUR (02/24/2025 3:55 PM EDT) Pathologist [facility] GLUCOSE 1 HOUR 157(H) <130 mg/dL [facility] 02/24/2025 3:55 PM EDT 02/24/2025 4:03 PM EDT Narrative [facility] - 02/24/2025 4:43 PM EDT [facility] DO LAB BLOOD ORDERABLES Final Resul t [facility] TB * (ABNORMAL) ALL CBC WITH AUTO DIFF (02/24/2025 3:55 PM EDT) [facility] WBC 9.5 4.0 - 11.0 10 3/uL [...] [facility]INIS[facility] - 02/24/2025 4:15 PM EDT us Reinaldo Malaika DO [facility] Final Result [facility] * US OB CERVICAL LENGTH (01/16/2025 4:52 PM EDT) Anatomical Region Laterality Modality Other 01/16/2025 4:52 PM EDT Narrative 01/16/2025 4:55 PM EDT The [address] [address] Ultrasound Report Signed Patient: TERESA NGUYEN MR#: [id number] : 2000 Acct:[id number] Age/Sex: 24 / F ADM Date: 01/16/25 Loc: US Attending Dr: Elizabeth Hoang Ordering Physician: Elizabeth Hoang Date of Service: 01/16/25 Procedure(s): US OB cervical length Accession Number(s): [id number] cc: Elizabeth Hoang; Physician,Non-Staff M.DGeoffrey [address] [address] Patient Name: TERESA NGUYEN MRN: [facility]:[id number] date: 2000 Sex: F Assigned Patient Location: US Current Patient Location: US Accession/Order Number: [id number] Exam Date: 01/16/2025 16:46 Report Date: 01/16/2025 [...] Espinoza M.D. 01/16/2025 4:52 PM Dictation Location: [place] [address] Electronically authenticated by: [id number] Y Date: 01/16/2025 16:52 Dictated By: Andres Espinoza D.O. Signed By: 01/16/251654 DD/ 51 TD/TT: Mill Helper: Procedure Note Radiology, Radiologist, MD - 01/16/2025 [place] [address] Ultrasound Report Signed Patient: TERESA NGUYEN NMR#: [id number] : 2000Acct:[id number] Age/Sex: 24 / FADM Date: 01/16/25 Loc: US Attending Dr: Elizabeth Hoang Ordering Physician: Elizabeth Hoang Date of Service: 01/16/25 Procedure(s): US OB cervical length Accession Number(s): [id number] cc: Elizabeth Hoang; Physician,Non-Staff Fady The [address] [address] Patient Name: TERESA NGUYEN MRN: [facility]:[id number] date: 2000 Sex: F Assigned Patient Location: US Current Patient Location: US Accession/Order Number: [id number] Exam Date: 01/16/2025 16:46 Report Date: 01/16/2025 [...] Espinoza M.D. 01/16/2025 4:52 PM Dictation Location: [place] [address] Electronically authenticated by: [id number] Y Date: 6:52 Dictated By: Andres Espinoza D.O. Signed By:01/16/251654 DD/ 51 TD/TT: Mill Helper: us Elizabeth CARDONA [facility] Final Result * US OB ANATOMY (01/16/2025 4:52 PM EDT) Anatomical Region Laterality Modality Other 01/16/2025 4:52 PM EDT Narrative 01/16/2025 4:55 PM EDT [address] [address] Ultrasound Report Signed Patient: TERESA NGUYEN MR#: [id number] : 2000 Acct:[id number] Age/Sex: 24 / F ADM Date: 01/16/25 Loc: US Attending Dr: Elizabeth Hoang Ordering Physician: Elizabeth Hoang Date of Service: 01/16/25 Procedure(s): US OB anatomy Accession Number(s): [id number] cc: Elizabeth Hoang; Physician,Non-Staff Fady The [address] [address] Patient Name: TERESA NGUYEN MRN: [facility]:[id number] date: 2000 Sex: F Assigned Patient Location: US Current Patient Location: US Accession/Order Number: [id number] Exam Date: 01/16/2025 16:46 Report Date: 01/16/2025 [...] Espinoza M.D. 01/16/2025 4:52 PM Dictation Location: [place] [address] Electronically authenticated by: [id number] Y Date: 01/16/2025 16:52 Dictated By: Andres Espinoza D.O. Signed By: 01/16/251654 DD/ 51 TD/TT: Mill Helper: Procedure Note Radiology, Radiologist, - 01/16/[address] [address] Ultrasound Report Signed Patient: TERESA NGUYEN [facility]#: [id number] : 2000Acct:[id number] Age/Sex: 24 / FADM Date: 01/16/25 Loc: US Attending Dr: Elizabeth Hoang Ordering Physician: Elizabeth Hoang Date of Service: 01/16/25 Procedure(s): US OB anatomy Accession Number(s): [id number] cc: lEizabeth Hoang; Physician,Non-Staff Fady [address] [address] Patient Name: TERESA NGUYEN MRN: [facility]:[id number] date: 2000 Sex: F Assigned Patient Location: US Current Patient Location: US Accession/Order Number: [id number] Exam Date: 01/16/2025 16:46 Report Date: 01/16/2025 [...] due date is 05/22/2025. somatic motion identified. US/ OB anatomy IMPRESSION: Single live intrauterine gestation 22 weeks earlier days. The anatomy as above. Cervical length 4.3 cm. Impression dictated by: Andres Espinoza M.D. 01/16/2025 4:52 PM Dictation Location: [place] Electronically authenticated by: [id number] Y Date: 6:52 Dictated By: Andres Espinoza D.O. Signed By:01/16/251654 DD/ 51 TD/TT: Mill Helper: Elizabeth CARDONA [facility] Final Result * RECURRENT VAGINITIS (HTRX) (01/05/2025 3:26 PM EDT) [facility] ATOPOBIUM VAGINAE 0.000 19.961 - 24.689 ppm 01/06/2025 6:28 AM EDT [facility] ATOPOBIUM VAGINAE Not Detected 19.961 - 24.689 ppm 01/06/2025 6:28 AM EDT [facility] BVAB 2,3 (BACTERIAL VAGINOSIS ASSOCIATED BACTERIA 2, 3); MOBILUNCUS SPP 0.000 19.961 - 24.689 ppm 01/06/2025 6:28 AM EDT [facility] BVAB 2,3 (BACTERIAL VAGINOSIS ASSOCIATED BACTERIA 2, 3); MOBILUNCUS SPP Not Detected 19.961 - 24.689 ppm 01/06/2025 6:28 AM EDT [facility] TERRANCE ALBICANS, PARAPSILOSIS, TROPICALIS 0.000 19.961 - 30.770 ppm 01/06/2025 6:28 AM EDT [facility] TERRANCE ALBICANS, PARAPSILOSIS, TROPICALIS Not Detected 19.961 - 30.770 ppm 01/06/2025 6:28 AM EDT [facility] TERRANCE GLABRATA 0.000 23.000 - 32.138 ppm 01/06/2025 6:28 AM EDT [facility] TERRANCE GLABRATA Not Detected 23.000 - 32.138 ppm 01/06/2025 6:28 AM EDT [facility] TERRANCE KRUSEI 0.000 23.000 - 32.271 ppm 01/06/2025 6:28 AM EDT [facility] TERRANCE KRUSEI Not Detected 23.000 - 32.271 ppm 01/06/2025 6:28 AM EDT [facility] CHLAMYDIA TRACHOMATIS 0.000 23.000 - 31.467 ppm 01/06/2025 6:28 AM EDT [facility] CHLAMYDIA TRACHOMATIS Not Detected 23.000 - 31.467 ppm 01/06/2025 6:28 AM EDT [facility] GARDNERELLA VAGINALIS 0.000 19.961 - 24.689 ppm 01/06/2025 6:28 AM EDT [facility] GARDNERELLA VAGINALIS Not Detected 19.961 - 24.689 ppm 01/06/2025 6:28 AM EDT [facility] MEGASPHAERA (TYPES 1, 2) 0.000 19.961 - 24.689 ppm 01/06/2025 6:28 AM EDT [facility] MEGASPHAERA (TYPES 1, 2) Not Detected 19.961 - 24.689 ppm 01/06/2025 6:28 AM EDT [facility] NEISSERIA GONORRHOEAE 0.000 23.000 - 32.117 ppm 01/06/2025 6:28 AM EDT [facility] NEISSERIA GONORRHOEAE Not Detected 23.000 - 32.117 ppm 01/06/2025 6:28 AM EDT [facility] TRICHOMONAS VAGINALIS 0.000 23.000 - 32.119 ppm 01/06/2025 6:28 AM EDT [facility] TRICHOMONAS VAGINALIS Not Detected 23.000 - 32.119 ppm 01/06/2025 6:28 AM EDT [facility] MYCOPLASMA GENITALIUM 0.000 19.961 - 24.689 ppm 01/06/2025 6:28 AM EDT [facility] MYCOPLASMA GENITALIUM Not Detected 19.961 - 24.689 ppm 01/06/2025 6:28 AM EDT [facility] Tissue 01/05/2025 3:26 PM EDT 01/06/2025 1:28 AM EDT Elizabeth CARDONA LAB BLOOD ORDERABLES Final Resul t [facility] [place] [address] * IGP,APTIMA HPV,AGE GDLN (01/05/2025 2:44 PM EDT) AGE GDLN ACOG TESTING Note . [facility] Comment: TESTS RESULT FLAG UNITS REF RANGE LAB Clinician Provided Cytology Information Source.............[employer] Other.............. No. of containers..01 ThinPrep Vial Age Algo ACOG Brenda... FLAG LEGEND: L-Low Normal,H-High Normal,LL-Alert Low,HH-Alert High <-Panic Low,>-Panic High,A-Abnormal,AA-Critical Abnormal Performed at: 01 =[facility] [place] [address] Marysol Wren MD, IGP, RFX APTIMA HPV ASCU Note . [facility] Comment: TESTS RESULT FLAG UNITS REF RANGE LAB DIAGNOSIS: 02 NEGATIVE FOR INTRAEPITHELIAL LESION OR MALIGNANCY. Specimen adequacy: 02 Satisfactory for evaluation. No endocervical component is identified. An endocervical component is not commonly seen in the patient. Performed by: 02 Elizabeth Sim Health Information Technician ([facility]) . 02 Note: Note 02 The [...] <-Panic Low,>-Panic High,A-Abnormal,AA-Critical Abnormal Performed at: [address] [address] Marysol Wren MD, Performed at: = - [facility] [id number] Ointment Mill Tender: Marysol Wren MD, Phone: [phone] Performed at: [address] [id number] Ointment Mill Tender: Marysol Wren MD, Phone: [phone] 01/05/2025 2:44 PM EDT 01/06/2025 6:16 AM EDT Narrative [facility] - 01/11/2025 2:08 PM EDT [facility] ENDOCERVIX us Elizabeth Hoang PA LAB BLOOD ORDERABLES Final Resul t [facility] * Pap Smear (01/05/2025 12:00 AM EDT) Swab Cervical swab / Unknown us Malaika Nurse [facility] LAB CYTOLOGY ORDERABLES Final Result EXTERNAL LAB from Last 3 Months Insurance
--- OUTSIDE RECORDS SUMMARY | 2025-03-31 16:02 | XMS_ITS | Encounter Summary ---
Author Organization [facility] Address [address] [place] [address] Care Team Providers Care Guard Dance Hall Name Role Phone Unavailable Primary Care Provider Unavailabl e Encounter Details Date Type Department Care Team (Late Contact Info) Description 11/10/2024 Abstract ARNOLDO OLIVA [address] [place] [phone] Zion Dai DO [address] [place], [facility] Social History Tobacco Use Types Packs/Day [...] EDT Routine ARNOLDO OLIVA [address] [place] [address] Zion Dai DO [address] [place], [place] [phone] documented as of this encounter Visit Diagnoses Not on filedocumented in this encounter
--- OUTSIDE RECORDS SUMMARY | 2025-03-31 16:02 | XMS_ITS | Encounter Summary ---
Author Organization [facility] Address [address] [place] [address] Care Team Providers Care Used Car Salesperson Name Role Phone Unavailable Primary Care Provider Unavailabl e Encounter Details Date Type Department Care Team ([facility] Contact Info) Description 01/17/2025 Orders Only ARNOLDO OLIVA [address] [place] [phone] Radha Cassidy LPN [address] [facility] [place] [address] Social History Tobacco Use Types Packs/Day Years [...] 3:50 PM EDT Routine NOMHarjeet OLIVA [address] [place] [phone] Zion Dai DO [address] [facility] [address] [place] [place], [place] [phone] documented as of this encounter Procedures Procedure [...]
--- OUTSIDE RECORDS SUMMARY | 2025-03-31 16:02 | XMS_ITS ---
Author Organization [facility] Source Produ ction (ClinicalSummary Clone) Address Unknown Care Team Providers Care Measurement Technician Name Role Phone Unavailable Primary Care Physician Unavailab le Results * [UNITY] ANEUPLOIDY NIPT Performed by: Sepaton Component Value Range Date Fraction 6.6% 11/06/2024 [...]
--- OUTSIDE RECORDS SUMMARY | 2025-03-31 16:02 | XMS_ITS | Encounter Summary ---
Author Organization [facility] Address [address] [place] [address] Care Team Providers Care Bottom Precipitator Operator Name Role Phone Unavailable Primary Care [...] PM EDT Routine ARNOLDO [place] OBGYN [address] [facility] [place] [address] Zion Dai DO [address] [facility] [address] [place], [place] [address] documented as of this encounter Visit Diagnoses Not on filedocumented in this encounter
[2025-03-31 16:10] VITALS: BP 118/63; PULSE 95
== END 2025-03-31 16:32 | disposition home or self-care (01) ==
LOC: FBCO 15:59 → FBC 16:06
PROVIDERS: Visit Provider Obstetrics & Gynecology
DX: O36.63X0 Maternal care for excessive fetal growth, third trimester, not applicable or unspecified (principal); Z3A.31 31 weeks gestation of pregnancy
CPT/HCPCS: 59025

== ENCOUNTER 2025-04-04 15:50 | Outpatient (OUT) | payer BC, SELFPAY ==
--- OUTSIDE RECORDS SUMMARY | 2025-03-22 13:00 | XMS_ITS | Encounter Summary ---
Author Organization [facility] Address [address] [place] [address] Care Team Providers Care Restaurant And Bar Manager Name Role Phone Unavailable Primary Care Provider Unavailabl e Encounter Details Date Type Department Care Team (Latest Contact Info) Description 03/22/2025 1:00 PM EDT Ancillary Procedure ARNOLDO OLIVA [address] [place] [place] [address] size inconsistent with dates ([facility]) Social History Tobacco Use Types Packs/Day Years [...] Care Team (Late st Contact Info) Description 04/18/2025 2:30 PM EDT Routine ARNOLDO OLIVA [address] [place] [address] Elizabeth Bonilla PA [address] [place], [facility] documented as of this encounter Procedures Procedure Name Priority Date/Time Associated Diagnosis Comments US OB FOLLOW UP TRANSABDOMINAL APPROACH Routine 03/22/2025 1:22 PM EDT size inconsistent with dates ([facility]) documented in this encounter Results * US [...] Visit Diagnoses Diagnosis size inconsistent with dates ([facility]) documented in this encounter
--- OUTSIDE RECORDS SUMMARY | 2025-03-22 13:30 | XMS_ITS | Encounter Summary ---
Author Organization [facility] Address [address] [place] [address] Care Team Providers Care Script Writer Name Role Phone Unavailable Primary Care Provider Unavailabl e Reason for Visit * Reason Comments Routine Visit Encounter Details Date Type Department Care Team ([facility] Contact Info) Description 03/22/2025 1:30 PM EDT Routine ARNOLDO [place] [facility]BG[facility] [address] [facility] [place] [address] Zion Dai DO [address] [place] [address] [place] [address] 30 weeks gestation of ([facility]); Third trimester ([facility]); Elevated glucose tolerance test Social History Tobacco [...] Diabetes mellitus screening 02/01/2025 Second trimester fetus ([facility]) 02/01/2025 23 weeks gestation of ([facility]) 02/01/2025 Resolved Ambulatory Problems Diagnosis Date Noted [...] nursing note reviewed. Exam conducted with a chief of surgery present. Vitals: There is no height or weight on file to calculate BMI. BP: 120/68 Patient's last menstrual period was 08/21/2024. ASSESSMENT & PLAN ICD-10-CM 1. 30 weeks gestation of ([facility]) Z3A.30 POCT urinalysis dipstick manually resulted 2. Third trimester ([facility]) Z34.93 POCT urinalysis dipstick manually resulted 3. [...] Info) Description 04/18/2025 2:30 PM EDT Routine [facility] [address] [facility] [place] [address] Elizabeth Bonilla PA [address] [facility] [place] [address] documented as of this encounter Procedures Procedure Name Priority Date/Time Associated Diagnosis Comments POCT URINALYSIS DIPSTICK Routine 03/22/2025 1:48 PM EDT 30 weeks gestation of ([facility]) Third trimester ([facility]) documented in this encounter Results * (ABNORMAL) [...] Visit Diagnoses Diagnosis 30 weeks gestation of ([facility]) Third trimester ([facility]) state, incidental Elevated glucose tolerance test Impaired glucose tolerance test documented in this encounter
--- OUTSIDE RECORDS SUMMARY | 2025-04-03 15:50 | XMS_ITS | Encounter Summary ---
Author Organization [facility] Address [address] [place] [address] Care Team Providers Care Retread Technician Name Role Phone Unavailable Primary Care Provider Unavailabl e Reason for Visit * Reason Comments Routine Visit Encounter Details Date Type Department Care Team ([facility] Contact Info) Description 04/03/2025 3:50 PM EDT Routine ARNOLDO [place] OBGYN [address] [facility] [facility] [phone] Zion Dai DO [address] [facility] [place] [address] Third trimester ([facility]); 32 weeks gestation of ([facility]) Social History Tobacco Use Types Packs/Day [...] Diabetes mellitus screening 02/01/2025 Second trimester fetus ([facility]) 02/01/2025 23 weeks gestation of ([facility]) 02/01/2025 Resolved Ambulatory Problems Diagnosis Date [...] nursing note reviewed. Exam conducted with a wedding cake designer present. Vitals: There is no height or weight on file to calculate BMI. BP: 116/60 Patient's last menstrual period was 08/21/2024. ASSESSMENT & PLAN ICD-10-CM 1. Third trimester ([facility]) Z34.93 POCT urinalysis dipstick manually resulted 2. 32 weeks gestation of ([facility]) Z3A.32 Patient presents today for a [...] [facility] [phone] Elizabeth Bonilla PA [address] [facility] [address] [place], [place] [phone] documented as of this encounter Procedures Procedure Name Priority Date/Time Associated Diagnosis Comments POCT URINALYSIS DIPSTICK Routine 04/03/2025 3:57 PM EDT Third trimester ([facility]) documented in this encounter Results * [...] ([facility]) state, incidental 32 weeks gestation of ([facility]) documented in this encounter
--- NOTE | 2025-04-04 | US_ITS ---
[place] [id number] Patient Name: TERESA NGUYEN MRN: [facility]:[id number] date: 2000 Sex: F Assigned Patient Location: [facility] Current Patient Location: Accession/Order Number: [id number] Exam Date: 04/05/2025 12:49 Report Date: 04/05/2025 12:51 At the request of: REINALDO DRUMMOND DO Procedure: US OB BPP w non-stress Ultrasound biophysical profile HISTORY: Excessive growth Adequate breathing movement, gross body movement, tone and amniotic fluid volume for total score of 8 out of 8. The amniotic fluid index is 25.7cm greater than the 95th percentile which is 24.2 cm The heart rate 145 bpm. US/US OB BPP w non-stress IMPRESSION: Adequate ultrasound biophysical profile polyhydramnios. Impression dictated by: Andres Espinoza M.D. 04/05/2025 12:51 PM Dictation Location: [facility] Electronically authenticated by: [id number] Y Date: 04/05/2025 12:51
--- OUTSIDE RECORDS SUMMARY | 2025-04-04 15:51 | XMS_ITS | Encounter Summary ---
Author Organization [facility] Address [address] [place] [address] Care Team Providers Care Bench Precision Assembler Name Role Phone Unavailable Primary Care Provider Unavailabl e Encounter Details Date Type Department Care Team ([facility] Contact Info) Description 01/17/2025 Orders Only ARNOLDO OILVA [address] [place] [address] Radha Cassidy LPN [address] [facility] [address] [place] [phone] Social History Tobacco Use Types Packs/Day Years [...] Department Care Team (Late Contact Info) Description 04/18/2025 2:30 PM EDT Routine NOMHarjeet OLIVA [address] [place] [address] Elizabeth Bonilla PA [address] [place], [place] [phone] documented as of this encounter Procedures Procedure [...]
--- OUTSIDE RECORDS SUMMARY | 2025-04-04 15:51 | XMS_ITS | Clinical Summary ---
Author Organization [facility] Address [address] [place] [address] Care Team Providers Care Newspaper Photo Editor Name Role Phone Unavailable Primary Care Provider Unavailabl e Allergies No known active allergies Medications famotidine (Pepcid) 20 MG tabletIndication s:Gastroesophage al Reflux Disease,Heartbur n Take 1 tablet (20 mg) by mouth Daily 30 tablet 11 03/27/2025 Active Active Problems Problem Noted Date Diagnosed Date Diabetes mellitus screening 02/01/2025 Second trimester fetus ([facility]) 02/01/2025 23 weeks gestation of ([facility]) 2024 Estimated Date of Delivery Comme nts Yes 05/28/2025 Based on last me nstrual period of 08/21/2024 Encounters Date Type Department Care Team Description 04/03/2025 3:50 PM EDT Routine [facility] Tom OLIVA [address] [place] [address] Reinaldo Dai, Third trimester ([facility]); 32 weeks gestation of ([facility]) 04/03/2025 Bamboo flowsheet [facility] Tom [facility]IVA [address] [place] [address] Reinaldo Dai DO 03/28/2025 Clinisync Result Encounter NOMS External Department Unsolicited Reinaldo Dai DO 03/28/2025 Telephone [facility] Tom OLIVA [address] [place] [address] Diana Heart LPN 03/27/2025 Telephone [facility] [place] [address] Diana Heart LPN 03/22/2025 1:30 PM EDT Routine [facility] [place] [address] Reinaldo Dai DO 30 weeks gestation of ([facility]); Third trimester ([facility]); Elevated glucose tolerance test 03/22/2025 1:00 PM EDT Ancillary Procedure [facility] [place] [address] size inconsistent with dates ([facility]) 03/22/2025 Travel 03/09/2025 Clinisync Result Encounter NOMS External Department Unsolicited Reinaldo Dai, 03/06/2025 2:50 PM EDT Routine [facility] Tom OLIVA [address] [place] [address] [place] [address] Elizabeth Hoang PA size inconsistent with dates ([facility]) (Primary Dx); Second trimester ([facility]); 28 weeks gestation of ([facility]) 03/06/2025 Bamboo flowsheet N[facility] [place] [address] Elizabeth Hoang PA 03/06/2025 Travel 03/01/2025 Results [place] [address] Diana Heart, TAMEKA ALL CBC WITH AUTO DIFF, GLUCOSE 1 HOUR 03/01/2025 [place] [address] Diana Heart LPN 02/24/2025 Clinisync Result Encounter NOMS External Department Unsolicited Reinaldo DaiDO 02/23/2025 Travel 02/01/2025 3:50 PM EDT Routine [facility] [place] [facility] [address] [facility] [place] [address] Reinaldo Dai, Diabetes mellitus screening; Second trimester fetus ([facility]); 23 weeks gestation of ([facility]) 02/01/2025 Bamboo flowsheet [facility] [address] [facility] [place] [address] Reinaldo Dai DO 01/25/2025 Travel 01/17/2025 Orders Only [facility] [place] [facility] [address] [place] [address] Radha Cassidy LPN 01/16/2025 Clinisync Result Encounter NOMS External Department Unsolicited Elizabeth Hoang PA 01/16/2025 Clinisync Result Encounter NOMS External Department Unsolicited Elizabeth Hoang PA 01/05/2025 2:40 PM EDT Routine [facility] [place] [facility] [address] [facility] [place] [address] Elizabeth Hoang PA Second trimester ([facility]); 20 weeks gestation of ([facility]); Screening, , for anatomic survey ([facility]); Well woman exam with routine gynecological exam; STD exposure 01/05/2025 Clinisync Result Encounter NOMS External Department Unsolicited Elizabeth Hoang PA 01/05/2025 External Result Encounter NOMS External Department Unsolicited Elizabeth Hoang PA 01/05/2025 Bamboo flowsheet [facility] [place] [facility] [address] [place] [address] Elizabeth Hoang PA 01/04/2025 Travel from Last [...] PM EDT Routine [facility] [address] [facility] [place] [address] Elizabeth Hoang PA [address] [place] [address] Procedures Procedure Name Priority Date/Time Associated Diagnosis Comments POCT URINALYSIS DIPSTICK Routine 04/03/2025 3:57 PM EDT Third trimester ([facility]) US OB BPP W NON-STRESS 03/28/2025 4:35 PM EDT POCT URINALYSIS DIPSTICK Routine 03/22/2025 1:48 PM EDT 30 weeks gestation of ([facility]) Third trimester ([facility]) US OB FOLLOW UP TRANSABDOMINAL APPROACH Routine 03/22/2025 1:22 PM EDT size inconsistent with dates ([facility]) GLUCOSE TOLERANCE 3 HOUR Routine 03/09/2025 7:37 AM EDT GLUCOSE 1 HOUR Routine 02/24/2025 3:55 PM EDT ALL CBC WITH AUTO DIFF Routine 3:55 PM EDT POCT URINALYSIS DIPSTICK Routine 02/01/2025 4:13 PM EDT Second trimester fetus ([facility]) 23 weeks gestation of ([facility]) US OB CERVICAL LENGTH 01/16/2025 4:52 PM EDT US OB ANATOMY 01/16/2025 4:52 PM EDT RECURRENT VAGINITIS (HTRX) Routine 01/05/2025 3:26 PM EDT POCT URINALYSIS DIPSTICK Routine 01/05/2025 3:12 PM EDT Second trimester ([facility]) IGP,APTIMA HPV,AGE GDLN Routine 01/05/2025 2:44 PM EDT PAP SMEAR Routine 01/05/2025 12:00 AM EDT from Last 3 Months Results * POCT urinalysis dipstick manually resulted (04/03/2025 3:57 PM EDT) Only the most recent of4 resultswithin the time period is included. Color, [...] - Positive Urine 04/03/2025 3:57 PM EDT us Reinaldo Dai DO POINT OF CARE TEST ENTER/EDIT OR DERABLES Final Result * US OB BPP W NON-STRESS (03/28/2025 4:35 PM EDT) Anatomical Region Laterality Modality Other 03/28/2025 4:35 PM EDT Narrative 03/28/2025 4:38 PM EDT [address] [address] Ultrasound Report Signed Patient: TERESA NGUYEN MR#: [id number] : 2000 Acct:[id number] Age/Sex: 24 / F ADM Date: 03/28/25 Loc: [facility] [address]: Reinaldo Dai D.O. Ordering Physician: Reinaldo Dai D.O. Date of Service: 03/28/25 Procedure(s): US OB BPP w non-stress Accession Number(s): [id number] cc: Reinaldo Dai D.O.; Physician,Non-Staff [place] [id number] Patient Name: TERESA NGUYEN MRN: [facility]:[id number] date: 2000 Sex: F Assigned Patient Location: US Current Patient Location: US Accession/Order Number: [id number] Exam Date: 03/28/2025 16:35 Report Date: 03/28/2025 16:35 At the request of: REINALDO DAI DO Procedure: US OB BPP w non-stress Biophysical profile. Reason for exam: Excessive growth COMPARISON: None TECHNIQUE: Transabdominal imaging of the gravid uterus was obtained. FINDINGS: The energy consultant reports a BPP of 8 out of 8. KATE is normal at 21.1 cm. heart rate 145 bpm. US/US OB BPP w non-stress IMPRESSION: BPP 8 out of 8. Impression dictated by: Albert Dodge Jr., D.O. 03/28/2025 4:35 PM Dictation Location: [place] [address] Electronically authenticated by: [id number] Y Date: 03/28/2025 16:35 Dictated By: Albert Dodge M.D. Signed By: 03/28/25 1638 DD/ 34 TD/TT: Buyer Planner: Procedure Note Radiology, Radiologist, - 03/28/2025 [place] [address] Ultrasound Report Signed Patient: TERESA NGUYEN NMR#: [id number] : 2000Acct:[id number] Age/Sex: 24 / FADM Date: 03/28/25 Loc: [place] [address]: Reinaldo Dai D.O. Ordering Physician: Reinaldo Dai D.O. Date of Service: 03/28/25 Procedure(s): US OB BPP w non-stress Accession Number(s): [id number] cc: Reinaldo Dai D.O.; Physician,Non-Staff Fady The [place] [address] Patient Name: TERESA NGUYEN MRN: [facility]:[id number] date: 2000 Sex: F Assigned Patient Location: US Current Patient Location: US Accession/Order Number: [id number] Exam Date: 03/28/2025 16:35 Report Date: 03/28/2025 16:35 At the request of: REINALDO DAI DO Procedure: US OB BPP w non-stress Biophysical profile. Reason for exam: Excessive growth COMPARISON: None TECHNIQUE: Transabdominal imaging of the gravid uterus was obtained. FINDINGS: The energy consultant reports a BPP of 8 out of 8. KATE is normal at21.1 cm. heart rate 145 bpm. US/US OB BPP w non-stress IMPRESSION: BPP 8 out of 8. Impression dictated by: Albert Dodge Jr., D.O. 03/28/2025 4:35 PM Dictation Location: [place] [address] Electronically authenticated by: [id number] Y Date: 6:35 Dictated By: Albert Dodge M.D. Signed By:03/28/251637 DD/ 34 TD/TT: Buyer Planner: us [facility] DO [facility] IMAGING Final Result * US OB follow up [...] SIGNED BY: Albert Snider MD Juani Aldrich NP IMG OB US PROCEDURES Final Re sult * GLUCOSE TOLERANCE 3 HOUR (03/09/2025 7:37 AM EDT) GLUCOSE TOLERANCE 3 HOUR mg/dL [facility] Comment: GLU FAST 87 (<95) Col: 03/09/25 0737 GLU 1HR 163 (<180) Col: 03/09/25 0844 GLU 2HR 142 (<155) Col: 03/09/25 0942 GLU 3HR 123 (<140) Col: 03/09/25 1042 03/09/2025 7:37 AM EDT 03/09/2025 7:38 AM EDT Narrative [facility] - 03/09/2025 11:43 AM EDT us Reinaldo Malaika DO LAB BLOOD ORDERABLES Final Resul t [facility] * (ABNORMAL) GLUCOSE 1 HOUR (02/24/2025 3:55 PM EDT) GLUCOSE 1 HOUR 157(H) <130 mg/dL TB 02/24/2025 3:55 PM EDT 02/24/2025 4:03 PM EDT Narrative [facility] - 02/24/2025 4:43 PM EDT us Reinaldo Dai DO LAB BLOOD ORDERABLES Final Resul t [facility] * (ABNORMAL) ALL CBC WITH AUTO DIFF [...] - 02/24/2025 4:15 PM EDT us Reinaldo Dai DO [facility] Final Result [facility] * US OB CERVICAL LENGTH (01/16/2025 4:52 PM EDT) Anatomical Region Laterality Modality Other 01/16/2025 4:52 PM EDT Narrative 01/16/2025 4:55 [place] [address] Ultrasound Report Signed Patient: TERESA NGUYEN MR#: [id number] : 2000 Acct:[id number] Age/Sex: 24 / F ADM Date: 01/16/25 Loc: US Attending Dr: Elizabeth Hoang Ordering Physician: Elizabeth Hoang Date of Service: 01/16/25 Procedure(s): US OB cervical length Accession Number(s): [id number] cc: Elizabeth Hoang; Physician,Non-Staff M.DGeoffrey [address] [address] Patient Name: TERESA NGUYEN MRN: [id number]:[id number] date: 2000 Sex: F Assigned Patient Location: US Current Patient Location: US Accession/Order Number: [id number] Exam Date: 01/16/2025 16:46 Report Date: 01/16/2025 [...] Espinoza M.D. 01/16/2025 4:52 PM Dictation Location: [facility] Electronically authenticated by: [id number] Y Date: 01/16/2025 16:52 Dictated By: Andres Espinoza D.O. Signed By: 01/16/251654 DD/ 51 TD/TT: Buyer Planner: Procedure Note Radiology, Radiologist, MD - 01/16/2025 The [place] [id number] Ultrasound Report Signed Patient: TERESA NGUYEN NMR#: [id number] : 2000Acct:[id number] Age/Sex: 24 / FADM Date: 01/16/25 Loc: US Attending Dr: Elizabeth Hoang Ordering Physician: Elizabeth Hoang Date of Service: 01/16/25 Procedure(s): US OB cervical length Accession Number(s): [id number] cc: Elizabeth Hoang; Physician,Non-Staff Fady The [address] [address] Patient Name: TERESA NGUYEN MRN: [id number] date: 2000 Sex: F Assigned Patient Location: US Current Patient Location: US Accession/Order Number: [id number] Exam Date: 01/16/2025 16:46 Report Date: 01/16/2025 [...] Espinoza M.D. 01/16/2025 4:52 PM Dictation Location: [place] [address] Electronically authenticated by: [id number] Y Date: 6:52 Dictated By: Andres Espinoza D.O. Signed By:01/16/251654 DD/ 51 TD/TT: Buyer Planner: us Elizabeth CARDONA [facility] IMAGING Final Result * US OB ANATOMY (01/16/2025 4:52 PM EDT) Anatomical Region Laterality Modality Other 01/16/2025 4:52 PM EDT Narrative 01/16/2025 4:55 [place] [address] Ultrasound Report Signed Patient: TERESA NGUYEN MR#: [id number] : 2000 Acct:[id number] Age/Sex: 24 / F ADM Date: 01/16/25 Loc: US Attending Dr: Elizabeth Hoang Ordering Physician: Elizabeth Hoang Date of Service: 01/16/25 Procedure(s): US OB anatomy Accession Number(s): [id number] cc: Elizabeth Hoang; Physician,Non-Staff MTan The [place] [address] Patient Name: TERESA NGUYEN MRN: [id number] date: 2000 Sex: F Assigned Patient Location: US Current Patient Location: US Accession/Order Number: [id number] Exam Date: 01/16/2025 16:46 Report Date: 01/16/2025 [...] Espinoza M.D. 01/16/2025 4:52 PM Dictation Location: [facility] Electronically authenticated by: [id number] Y Date: 01/16/2025 16:52 Dictated By: Andres Espinoza D.O. Signed By: 01/16/251654 DD/ 51 TD/TT: Buyer Planner: Procedure Note Radiology, Radiologist, - 01/16/2025 [place] [address] Ultrasound Report Signed Patient: TERESA NGUYEN [facility]#: [id number] : 2000Acct:[id number] Age/Sex: 24 FADM Date: 01/16/25 Loc: US Attending Dr: Elizabeth Hoang Ordering Physician: Elizabeth Hoang Date of Service: 01/16/25 Procedure(s): US OB anatomy Accession Number(s): [id number] cc: Elizabeth Hoang; Physician,Non-Staff M.DGeoffrey The [place] [id number] Patient Name: TERESA NGUYEN MRN: [id number] date: 2000 Sex: F Assigned Patient Location: US Current Patient Location: US Accession/Order Number: [id number] Exam Date: 01/16/2025 16:46 Report Date: 01/16/2025 [...] Espinoza M.D. 01/16/2025 4:52 PM Dictation Location: [employer] Electronically authenticated by: [id number] Y Date: 6:52 Dictated By: Andres Espinoza D.O. Signed By:01/16/251654 DD/ 51 TD/TT: Buyer Planner: Elizabeth CARDONA [facility] IMAGING Final Result * RECURRENT VAGINITIS (HTRX) (01/05/2025 3:26 PM EDT) Pathologist [facility] ATOPOBIUM VAGINAE 0.000 19.961 - 24.689 ppm 01/06/2025 6:28 AM EDT [facility] ATOPOBIUM VAGINAE Not Detected 19.961 - 24.689 ppm 01/06/2025 6:28 AM EDT [facility] BVAB 2,3 (BACTERIAL VAGINOSIS ASSOCIATED BACTERIA 2, 3); MOBILUNCUS SPP 0.000 19.961 - 24.689 ppm 01/06/2025 6:28 AM EDT [facility] BVAB 2,3 (BACTERIAL VAGINOSIS ASSOCIATED BACTERIA 2, 3); MOBILUNCUS SPP Not Detected 19.961 - 24.689 ppm 01/06/2025 6:28 AM EDT [facility] TERRANCE ALBICANS, PARAPSILOSIS, TROPICALIS 0.000 19.961 - 30.770 ppm 01/06/2025 6:28 AM EDT [facility] TERRANCE ALBICANS, PARAPSILOSIS, TROPICALIS Not Detected 19.961 - 30.770 ppm 01/06/2025 6:28 AM EDT [facility] [place] TERRANCE GLABRATA 0.000 23.000 - 32.138 ppm 01/06/2025 6:28 AM EDT [facility] [place] TERRANCE GLABRATA Not Detected 23.000 - 32.138 ppm 01/06/2025 6:28 AM EDT [facility] [place] TERRANCE KRUSEI 0.000 23.000 - 32.271 ppm 01/06/2025 6:28 AM EDT [facility] [place] TERRANCE KRUSEI Not Detected 23.000 - 32.271 ppm 01/06/2025 6:28 AM EDT [facility] [place] CHLAMYDIA TRACHOMATIS 0.000 23.000 - 31.467 ppm 01/06/2025 6:28 AM EDT [facility] [place] CHLAMYDIA TRACHOMATIS Not Detected 23.000 - 31.467 ppm 01/06/2025 6:28 AM EDT [facility] [place] GARDNERELLA VAGINALIS 0.000 19.961 - 24.689 ppm 01/06/2025 6:28 AM EDT [facility] [place] GARDNERELLA VAGINALIS Not Detected 19.961 - 24.689 ppm 01/06/2025 6:28 AM EDT [facility] [place] MEGASPHAERA (TYPES 1, 2) 0.000 19.961 - 24.689 ppm 01/06/2025 6:28 AM EDT [facility] [place] MEGASPHAERA (TYPES 1, 2) Not Detected 19.961 - 24.689 ppm 01/06/2025 6:28 AM EDT [facility] [place] NEISSERIA GONORRHOEAE 0.000 23.000 - 32.117 ppm 01/06/2025 6:28 AM EDT [facility] [place] NEISSERIA GONORRHOEAE Not Detected 23.000 - 32.117 ppm 01/06/2025 6:28 AM EDT [facility] [place] TRICHOMONAS VAGINALIS 0.000 23.000 - 32.119 ppm 01/06/2025 6:28 AM EDT [facility] [place] TRICHOMONAS VAGINALIS Not Detected 23.000 - 32.119 ppm 01/06/2025 6:28 AM EDT [facility] MYCOPLASMA GENITALIUM 0.000 19.961 - 24.689 ppm 01/06/2025 6:28 AM EDT [facility] MYCOPLASMA GENITALIUM Not Detected 19.961 - 24.689 ppm 01/06/2025 6:28 AM EDT [facility] Tissue 01/05/2025 3:26 PM EDT 01/06/2025 1:28 AM EDT us Elizabeth CARDONA LAB BLOOD ORDERABLES Final Resul t [facility] [address] [place] [address] * IGP,APTIMA HPV,AGE GDLN (01/05/2025 2:44 PM EDT) AGE GDLN ACOG TESTING Note . [facility] Comment: TESTS RESULT FLAG UNITS REF RANGE LAB Clinician Provided Cytology Information Source.............Endocervix Other.............. No. of containers..01 ThinPrep Vial Age Algo ACOG Brenda... -14 09 FLAG LEGEND: L-Low Normal,H-High Normal,LL-Alert Low,HH-Alert High <-Panic Low,>-Panic High,A-Abnormal,AA-Critical Abnormal Performed at: 01 =G [facility] [address] [facility] [place] [address] Marysol Wren MD, IGP, RFX APTIMA HPV ASCU Note . [facility] Comment: TESTS RESULT FLAG UNITS REF RANGE LAB DIAGNOSIS: 02 NEGATIVE FOR INTRAEPITHELIAL LESION OR MALIGNANCY. Specimen adequacy: 02 Satisfactory for evaluation. No endocervical component is identified. An endocervical component is not commonly seen in the patient. Performed by: 02 Elizabeth Sim, Southeast Regional Sales Manager ([facility]) . 02 Note: Note 02 [...] <-Panic Low,>-Panic High,A-Abnormal,AA-Critical Abnormal Performed at: 02 WB [facility] [address] [place] [address] Marysol Wren MD, Performed at: = - [facility] [address] [place] [id number] Bruise Trimmer: Marysol Wren MD, Phone: [phone] Performed at: - [facility] [address] [place] [id number] Bruise Trimmer: Marysol Wrne MD, Phone: [phone] 01/05/2025 2:44 PM EDT 01/06/2025 6:16 AM EDT Narrative [facility] - 01/11/2025 2:08 PM EDT SPATUL[facility]-ALONE ENDOCERVIX us Elizabeth CARDONA LAB BLOOD ORDERABLES Final Resul t [facility] * Pap Smear (01/05/2025 12:00 AM EDT) Swab Cervical swab / Unknown us Malaika Nurse [facility] Ob LAB CYTOLOGY ORDERABLES Final Result EXTERNAL LAB from Last 3 Months Insurance
--- OUTSIDE RECORDS SUMMARY | 2025-04-04 15:52 | XMS_ITS | Encounter Summary ---
Author Organization [facility] Address [address] [place] [address] Care Team Providers Care Clothing Manager Name Role Phone Unavailable Primary Care Provider Unavailabl e Encounter Details Date Type Department Care Team (Late Contact Info) Description 03/28/2025 Telephone [facility] Tom [facility] [address] [facility] [place] [place] [address] Diana Heart LPN [address] [place] [address] Social History Tobacco Use Types Packs/Day Years [...] 04/18/2025 2:30 PM EDT Routine [facility] Tom OLIVA [address] [facility] [address] [place] [address] Elizabeth Bonilla PA [address] [place] [address] Scheduled Orders Name Type Priority Associated Diagnoses [...]
--- OUTSIDE RECORDS SUMMARY | 2025-04-04 15:52 | XMS_ITS | Encounter Summary ---
Author Organization [facility] Address [address] [place] [address] Care Team Providers Care Dressing Room Attendant Name Role Phone Unavailable Primary Care Provider Unavailabl e Encounter Details Date Type Department Care Team (Late Contact Info) Description 03/28/2025 Clinisync Result Encounter NOMS External Department Unsolicited Reinaldo Dai DO [address] [facility] [address] [place], [place] [address] Social History Tobacco Use Types Packs/Day Years [...] Description 04/18/2025 2:30 PM EDT Routine [facility] [address] [facility] [place] [address] Elizabeth Bonilla PA [address] [facility] [address] [place], [place] [address] documented as of this encounter Procedures Procedure Name Priority Date/Time Associated Diagnosis Comments US OB BPP W NON-STRESS 03/28/2025 4:35 PM EDT documented in this encounter Results * US OB BPP W NON-STRESS (03/28/2025 4:35 PM EDT) Anatomical Region Laterality Modality Other 03/28/2025 4:35 PM EDT Narrative 03/28/2025 4:38 [place] [address] Ultrasound Report Signed Patient: AYALA BRADFORD MR#: [id number] : 2000 Acct:[id number] Age/Sex: 24 / F ADM Date: 03/28/25 Loc: [facility] 250-[address]: Reinaldo Dai D.O. Ordering Physician: Reinaldo Dai D.O. Date of Service: 03/28/25 Procedure(s): US OB BPP w non-stress Accession Number(s): [id number] cc: Reinaldo Dai D.O.; Physician,Non-Staff Fady The [place] [address] Patient Name: AYALA BRADFORD MRN: [id number] date: 2000 Sex: F Assigned Patient Location: US Current Patient Location: US Accession/Order Number: [id number] Exam Date: 03/28/2025 16:35 Report Date: 03/28/2025 16:35 At the request of: REINALDO DAI DO Procedure: US OB BPP w non-stress Biophysical profile. Reason for exam: Excessive growth COMPARISON: None TECHNIQUE: Transabdominal imaging of the gravid uterus was obtained. FINDINGS: The exercise planner reports a BPP of 8 out of 8. KATE is normal at 21.1 cm. heart rate 145 bpm. US/US OB BPP w non-stress IMPRESSION: BPP 8 out of 8. Impression dictated by: Albert Dodge Jr., D.O. 03/28/2025 4:35 PM Dictation Location: [place] [address] Electronically authenticated by: [id number] Y Date: 03/28/2025 16:35 Dictated By: Albert Dodge M.D. Signed By: 03/28/25 1638 DD/ 34 TD/TT: Tenter: Procedure Note Radiology, Radiologist, - 03/28/2025 [place] [address] Ultrasound Report Signed Patient: AYALA BRADFORD NMR#: [id number] : 2000Acct:[id number] Age/Sex: 24 / FADM Date: 03/28/25 Loc: [facility] [address]: Reinaldo Dai D.O. Ordering Physician: Reinaldo Dai D.O. Date of Service: 03/28/25 Procedure(s): US OB BPP w non-stress Accession Number(s): [id number] cc: Reinaldo Dai D.O.; Physician,Non-Staff Fady The [place] [address] Patient Name: AYALA BRADFORD MRN: [facility]:[id number] date: 2000 Sex: F Assigned Patient Location: US Current Patient Location: US Accession/Order Number: [id number] Exam Date: 03/28/2025 16:35 Report Date: 03/28/2025 16:35 At the request of: REINALDO DAI DO Procedure: US OB BPP w non-stress Biophysical profile. Reason for exam: Excessive growth COMPARISON: None TECHNIQUE: Transabdominal imaging of the gravid uterus was obtained. FINDINGS: The exercise planner reports a BPP of 8 out of 8. KATE is normal at21.1 cm. heart rate 145 bpm. US/US OB BPP w non-stress IMPRESSION: BPP 8 out of 8. Impression dictated by: Albert Dodge Jr., D.O. 03/28/2025 4:35 PM Dictation Location: [place] [address] Electronically authenticated by: [id number] Y Date: 6:35 Dictated By: Albert Dodge M.D. Signed By:03/28/251637 DD/ 34 TD/TT: Tenter: us Reinaldo Dai DO [facility]AG[facility] Final Result documented in this encounter Visit Diagnoses Not on filedocumented in this encounter
--- OUTSIDE RECORDS SUMMARY | 2025-04-04 15:52 | XMS_ITS | Encounter Summary ---
Author Organization [facility] Address [address] [place] [address] Care Team Providers Care Ore Bridge Operator Name Role Phone Unavailable Primary Care Provider Unavailabl e Encounter Details Date Type Department Care Team (Late Contact Info) Description 12/19/2024 Abstract ARNOLDO OLIVA [address] [facility] [place] [address] Zion Dai DO [address] [facility] [address] Nikhil [place], [facility] Social History Tobacco Use Types Packs/Day [...] 2:30 PM EDT Routine ARNOLDO OLIVA [address] [facility] [place] [address] Elizabeth Bonilla PA [address] [facility] [place] [address] documented as of this encounter Visit Diagnoses Not on filedocumented in this encounter
--- OUTSIDE RECORDS SUMMARY | 2025-04-04 15:52 | XMS_ITS | Encounter Summary ---
Author Organization [facility] Address [address] [place] [address] Care Team Providers Care Pier Hand Name Role Phone Unavailable Primary Care Provider Unavailabl e Encounter Details Date Type Department Care Team (Late Contact Info) Description 04/03/2025 Bamboo flowsheet ARNOLDO OLIVA [address] [facility] [place] [address] Zion Dai DO [address] [facility] [address] Nikhil Santos, [facility]11 Social History Tobacco [...] 2:30 PM EDT Routine ARNOLDO OLIVA [address] [place] [address] Elizabeth Bonilla PA [address] [facility] [address] [place], [place] [id number] documented as of this encounter Visit Diagnoses Not on filedocumented in this encounter
--- OUTSIDE RECORDS SUMMARY | 2025-04-04 15:52 | XMS_ITS | Encounter Summary ---
Author Organization [facility] Address [address] [place] [address] Care Team Providers Care Wood Shop Teacher Name Role Phone Unavailable Primary Care Provider Unavailabl e Encounter Details Date Type Department Care Team (Late Contact Info) Description 11/10/2024 Abstract ARNOLDO OLIVA [address] [facility] [place] [address] Zion Dai DO [address] [facility] [address] Nikhil Santos, [facility]11 Social History Tobacco Use Types Packs/Day Years [...] 2:30 PM EDT Routine ARNOLDO OLIVA [address] [facility] [place] [address] Elizabeth Bonilla PA [address] [facility] [place] [address] documented as of this encounter Visit Diagnoses Not on filedocumented in this encounter
--- OUTSIDE RECORDS SUMMARY | 2025-04-04 15:52 | XMS_ITS | Encounter Summary ---
Author Organization [facility] Address [address] [place] [address] Care Team Providers Care Commissioner Of Internal Revenue Name Role Phone Unavailable Primary Care Provider Unavailabl e Encounter Details Date Type Department Care Team (Late Contact Info) Description 03/01/2025 Results Follow-Up ARNOLDO OLIVA [address] [facility] [place] [address] Diana Heart LPN [address] [employer] [place] [id number] ALL CBC WITH AUTO DIFF, GLUCOSE 1 [...] 2:30 PM EDT Routine NOMHarjeet OLIVA [address] [place] [address] Elizabeth Bonilla PA [address] [place] [address] [place] [address] documented as of this encounter Visit Diagnoses Not on filedocumented in this encounter
--- OUTSIDE RECORDS SUMMARY | 2025-04-04 15:52 | XMS_ITS | Encounter Summary ---
Author Organization [facility] Address [address] [place] [address] Care Team Providers Care Buyer Planner Name Role Phone Unavailable Primary Care Provider Unavailabl e Encounter Details Date Type Department Care Team ([facility] [address] Contact Info) Description 03/27/2025 Telephone NOMS Tom OBGYJoseph [address] [place] [address] Diana Heart LPN [address] [employer] [place] [phone] Social History Tobacco Use Types Packs/Day Years [...] guys could give me a call at [phone]. That would be awesome, thank you. I told pt that it was probably just due to her heartburn/acid reflux and offered to send in medication for that. PVU documented in this encounter Plan of Treatment Upcoming Encounters Date Type Department Care Team (Late st Contact Info) Description 04/18/2025 2:30 PM EDT Routine NOMS Tom OLIVA [address] [facility] [place] [address] Elizabeth Bonilla PA [address] [facility] [place] [address] documented as of this encounter Visit Diagnoses Diagnosis Gastroesophageal reflux in ([facility]) documented in this encounter
--- OUTSIDE RECORDS SUMMARY | 2025-04-04 15:52 | XMS_ITS | Encounter Summary ---
Author Organization [facility] Address [address] [place] [address] Care Team Providers Care Hospital Superintendent Name Role Phone Unavailable Primary Care Provider [...] Description 04/18/2025 2:30 PM EDT Routine ARNOLDO Santos OBGYJoseph [address] [facility] [phone] Elizabeth Bonilla PA [address] [facility] [address] [place], [facility]11 documented as of this encounter Visit Diagnoses Not on filedocumented in this encounter
[2025-04-04 16:25] VITALS: BP 111/62; PULSE 93
== END 2025-04-04 16:52 | disposition home or self-care (01) ==
LOC: US 15:50 → FBC 15:51
PROVIDERS: Visit Provider Obstetrics & Gynecology
DX: O36.63X0 Maternal care for excessive fetal growth, third trimester, not applicable or unspecified (principal); O40.3XX0 Polyhydramnios, third trimester, not applicable or unspecified; Z3A.31 31 weeks gestation of pregnancy
CPT/HCPCS: 76818

== ENCOUNTER 2025-04-07 14:57 | Outpatient (OUT) | payer BC, SELFPAY ==
[2025-04-07 15:13] VITALS: BP 112/59; PULSE 89
== END 2025-04-07 16:14 | disposition home or self-care (01) ==
LOC: FBCO 14:57 → FBC 14:59
PROVIDERS: Visit Provider Obstetrics & Gynecology
DX: O36.63X0 Maternal care for excessive fetal growth, third trimester, not applicable or unspecified (principal); Z3A.32 32 weeks gestation of pregnancy
CPT/HCPCS: 59025

== ENCOUNTER 2025-04-10 20:42 | Observation (INO) | payer BC, SELFPAY ==
--- OUTSIDE RECORDS SUMMARY | 2025-04-03 15:50 | XMS_ITS | Encounter Summary ---
Author Organization [facility] Address [address] [place] [address] Care Team Providers Care Reagent Tender Helper Name Role Phone Unavailable Primary Care Provider Unavailabl e Reason for Visit * Reason Comments Routine Visit Encounter Details Date Type Department Care Team ([facility] Contact Info) Description 04/03/2025 3:50 PM EDT Routine ARNOLDO [place] OBGYN [address] [facility] [phone] Zion Dai DO [address] [place] [address] Third trimester ([facility]); 32 weeks gestation of ([facility]) Social History Tobacco Use Types Packs/Day Years [...] Diabetes mellitus screening 02/01/2025 Second trimester fetus ([facility]) 02/01/2025 23 weeks gestation of ([facility]) 02/01/2025 Resolved Ambulatory Problems Diagnosis Date Noted [...] nursing note reviewed. Exam conducted with a block chopper hand present. Vitals: There is no height or weight on file to calculate BMI. BP: 116/60 Patient's last menstrual period was 08/21/2024. ASSESSMENT & PLAN ICD-10-CM 1. Third trimester ([facility]) Z34.93 POCT urinalysis dipstick manually resulted 2. 32 weeks gestation of ([facility]) Z3A.32 Patient presents today for a routine [...] PM EDT Routine [facility] [address] [facility] [address] [phone] Elizabeth Bonilla PA [address] [place], [place] [phone] documented as of this encounter Procedures Procedure Name Priority Date/Time Associated Diagnosis Comments POCT URINALYSIS DIPSTICK Routine 04/03/2025 3:57 PM EDT Third trimester ([facility]) documented in this encounter Results * POCT [...] ([facility]) state, incidental 32 weeks gestation of ([facility]) documented in this encounter
--- OUTSIDE RECORDS SUMMARY | 2025-04-10 20:47 | XMS_ITS | Clinical Summary ---
Author Organization [facility] Address [address] [place] [address] Care Team Providers Care Prop And Scenery Maker Name Role Phone Unavailable Primary Care Provider Unavailabl e Allergies No known active allergies Medications famotidine (Pepcid) 20 MG tabletIndication s:Gastroesophage al Reflux Disease,Heartbur n Take 1 tablet (20 mg) by mouth Daily 30 tablet 11 03/27/2025 Active Active Problems Problem Noted Date Diagnosed Date Diabetes mellitus screening 02/01/2025 Second trimester fetus ([facility]) 02/01/2025 23 weeks gestation of ([facility]) 2024 Estimated Date of Delivery Comme nts Yes 05/28/2025 Based on last me nstrual period of 08/21/2024 Encounters Date Type Department Care Team Description 04/05/2025 Clinisync Result Encounter NOMS External Department Unsolicited Reinaldo Dai, 04/03/2025 3:50 PM EDT Routine NOMS Tom OLIVA [address] [place] [address] Reinaldo Dai, Third trimester ([facility]); 32 weeks gestation of ([facility]) 04/03/2025 Bamboo flowsheet NOMS Tom OLIVA [address] [place] [address] Reinaldo Dai, 03/28/2025 Clinisync Result Encounter NOMS External Department Unsolicited Reinaldo Dai, 03/28/2025 Telephone [facility]S Tom [address] [facility] [place] [address] Diana Heart LPN 03/27/2025 Telephone NOMS Tom [place] [address] Diana Heart LPN 03/22/2025 1:30 PM EDT Routine NOMS Tom [place] [address] Reinaldo Dai DO 30 weeks gestation of ([facility]); Third trimester ([facility]); Elevated glucose tolerance test 03/22/2025 1:00 PM EDT Ancillary Procedure NOMS Tom [place] [address] size inconsistent with dates ([facility]) 03/22/2025 Travel 03/09/2025 Clinisync Result Encounter NOMS External Department Unsolicited Reinaldo Dai DO 03/06/2025 2:50 PM EDT Routine NOMS Tom OLIVA [address] [place] [address] Elizabeth Hoang PA size inconsistent with dates ([facility]) (Primary Dx); Second trimester ([facility]); 28 weeks gestation of ([facility]) 03/06/2025 Bamboo flowsheet NOMS Tom [place] [facility] [place] [address] Elizabeth Hoang PA 03/06/2025 Travel 03/01/2025 [place] [address] Diana Heart LPN ALL CBC WITH AUTO DIFF, GLUCOSE 1 HOUR 03/01/2025 Telephone NOMS Tom OLIVA [address] [place] [address] Diana Heart LPN 02/24/2025 Clinisync Result Encounter NOMS External Department Unsolicited Reinaldo Dai, 02/23/2025 Travel 02/01/2025 3:50 PM [place] [address] Reinaldo Dai, DO Diabetes mellitus screening; Second trimester fetus ([facility]); 23 weeks gestation of ([facility]) 02/01/2025 [place] [address] Reinaldo Dai, 01/25/2025 Travel 01/17/2025 [place] [address] Radha Cassidy, WOOD CHOPPER 01/16/2025 Clinisync Result Encounter NOMS External Department Unsolicited Elizabeth Hoang PA 01/16/2025 Clinisync Result Encounter NOMS External Department Unsolicited Elizabeth Hoang PA from Last 3 Months Family History Medical [...] Info) Description 04/18/2025 2:40 PM [place] [address] Elizabeth Hoang PA [address] [place] [address] [place] [address] Procedures Procedure Name Priority Date/Time Associated Diagnosis Comments US OB BPP W NON-STRESS 04/05/2025 12:51 PM EDT POCT URINALYSIS DIPSTICK Routine 04/03/2025 3:57 PM EDT Third trimester ([facility]) US OB BPP W NON-STRESS 03/28/2025 4:35 PM EDT POCT URINALYSIS DIPSTICK Routine 03/22/2025 1:48 PM EDT 30 weeks gestation of ([facility]) Third trimester ([facility]) US OB FOLLOW UP TRANSABDOMINAL APPROACH Routine 03/22/2025 1:22 PM EDT size inconsistent with dates ([facility]) GLUCOSE TOLERANCE 3 HOUR Routine 03/09/2025 7:37 AM EDT GLUCOSE 1 HOUR Routine 02/24/2025 3:55 PM EDT ALL CBC WITH AUTO DIFF Routine 3:55 PM EDT POCT URINALYSIS DIPSTICK Routine 02/01/2025 4:13 PM EDT Second trimester fetus ([facility]) 23 weeks gestation of ([facility]) US OB CERVICAL LENGTH 01/16/2025 4:52 PM EDT US OB ANATOMY 01/16/2025 4:52 PM EDT from Last 3 Months Results * US OB BPP W NON-STRESS (04/05/2025 12:51 PM EDT) Only the most recent of2 resultswithin the time period is included. Anatomical Region Laterality Modality Other 04/05/2025 12:5 1 PM EDT Narrative 04/05/2025 12:53 [place] [address] Ultrasound Report Signed Patient: TERESA BRADFORD MR#: [id number] : 2000 Acct:[id number] Age/Sex: 24 / F ADM Date: 04/04/25 Loc: US Attending Dr: Reinaldo Dai D.O. Ordering Physician: Reinaldo Dai D.O. Date of Service: 04/04/25 Procedure(s): US OB BPP w non-stress Accession Number(s): [id number] cc: Reinaldo Dai D.O.; Physician,Non-Staff [place] [address] Patient Name: TERESA BRADFORD MRN: [facility]:[id number] date: 2000 Sex: F Assigned Patient Location: [facility] Current Patient Location: Accession/Order Number: [id number] Exam Date: 04/05/2025 12:49 Report Date: 04/05/2025 12:51 At the request of: REINALDO DAI DO Procedure: US OB BPP w non-stress Ultrasound biophysical profile HISTORY: Excessive growth Adequate breathing movement, gross body movement, tone and amniotic fluid volume for total score of 8 out of 8. The amniotic fluid index is 25.7cm greater than the 95th percentile which is 24.2 cm The heart rate 145 bpm. US/US OB BPP w non-stress IMPRESSION: Adequate ultrasound biophysical profile polyhydramnios. Impression dictated by: Andres Espinoza M.D. 04/05/2025 12:51 PM Dictation Location: [place] [address] Electronically authenticated by: [id number] Y Date: 04/05/2025 12:51 Dictated By: Andres Espinoza D.O. Signed By: 04/05/25 1253 DD/ 1251 TD/TT: Sound Engineer Audio Control: Procedure Note Radiology, Radiologist, - 04/05/2025 [place] [address] Ultrasound Report Signed Patient: TERESA BRADFORD NMR#: [id number] : 2000Acct:[id number] Age/Sex: 24 / FADM Date: 04/04/25 Loc: US Attending Dr: Reinaldo Dai D.O. Ordering Physician: Reinaldo Dai D.O. Date of Service: 04/04/25 Procedure(s): US OB BPP w non-stress Accession Number(s): [id number] cc: Reinaldo Dai D.O.; Physician,Non-Staff [place] [id number] Patient Name: TERESA BRADFORD MRN: [facility]:[id number] date: 2000 Sex: F Assigned Patient Location: [facility] Current Patient Location: Accession/Order Number: [id number] Exam Date: 04/05/2025 12:49 Report Date: 04/05/2025 12:51 At the request of: REINALDO DAI DO Procedure: US OB BPP w non-stress Ultrasound biophysical profile HISTORY: Excessive growth Adequate breathing movement, gross body movement, tone and amniotic fluid volume for total score of 8 out of 8. The amniotic fluidindex is 25.7cm greater than the 95th percentile which is 24.2 cm The fetalheart rate 145 bpm. US/US OB BPP w non-stress IMPRESSION: Adequate ultrasound biophysical profile polyhydramnios. Impression dictated by: Andres Espinoza M.D. 04/05/2025 12:51 PM Dictation Location: [place] [address] Electronically authenticated by: [id number] Y Date: 2:51 Dictated By: Andres Espinoza D.O. Signed By:04/05/25 1253 DD/ 1251 TD/TT: Sound Engineer Audio Control: us Reinaldo Malaika DO [facility] Final Result * POCT urinalysis dipstick manually resulted (04/03/2025 3:57 PM EDT) Only the most recent of3 [...] Positive Urine 04/03/2025 3:57 PM EDT [facility] POINT [facility] CARE TEST ENTER/EDIT OR [...] AM EDT) GLUCOSE TOLERANCE 3 HOUR mg/dL [facility] Comment: GLU FAST 87 (<95) Col: 03/09/25 0737 GLU 1HR 163 (<180) Col: 03/09/25 0844 GLU 2HR 142 (<155) Col: 03/09/25 0942 GLU 3HR 123 (<140) Col: 03/09/25 1042 03/09/2025 7:37 AM EDT 03/09/2025 7:38 AM EDT Narrative [facility] - 03/09/2025 11:43 AM EDT Reinaldo Malaika DO LAB BLOOD ORDERABLES Final Resul t [facility] * (ABNORMAL) GLUCOSE 1 HOUR (02/24/2025 3:55 PM EDT) GLUCOSE 1 HOUR 157(H) <130 mg/dL TB 02/24/2025 3:55 PM EDT 02/24/2025 4:03 PM EDT Narrative [facility] - 02/24/2025 4:43 PM EDT [employer] DO LAB BLOOD ORDERABLES Final Resul t [facility] TB * (ABNORMAL) ALL CBC WITH AUTO DIFF (02/24/2025 3:55 PM EDT) TB WBC 9.5 4.0 - 11.0 10 [...] us Reinaldo Malaika DO [facility] Final Result [facility] * US OB CERVICAL LENGTH (01/16/2025 4:52 PM EDT) Anatomical Region Laterality Modality Other 01/16/2025 4:52 PM EDT Narrative 01/16/2025 4:55 [place] [address] Ultrasound Report Signed Patient: TERESA BRADFORD MR#: [id number] : 2000 Acct:[id number] Age/Sex: 24 / F ADM Date: 01/16/25 Loc: US Attending Dr: Elizabeth Hoang Ordering Physician: Elizabeth Hoang Date of Service: 01/16/25 Procedure(s): US OB cervical length Accession Number(s): [id number] cc: Elizabeth Hoang; Physician,Non-Staff [place] [id number] Patient Name: TERESA BRADFORD MRN: [id number] date: 2000 Sex: F Assigned Patient Location: Current Patient Location: US Accession/Order Number: [id number] Exam Date: 01/16/2025 16:46 Report Date: 01/16/2025 [...] Espinoza M.D. 01/16/2025 4:52 PM [facility]ictation [facility] Electron[facility] authenticated by: [id number] Y Date: 01/16/2025 16:52 Dictated By: Andres Espinoza D.O. Signed By: 01/16/251654 DD/ 51 TD/TT: Sound Engineer Audio Control: Procedure Note Radiology, Radiologist, - 01/16/[address] [address] Ultrasound Report Signed Patient: TERESA BRADFORD NMR#: [id number] : 2000Acct:[id number] Age/Sex: 24 / FADM Date: 01/16/25 Loc: US Attending Dr: Elizabeth Hoang Ordering Physician: Elizabeth Hoang Date of Service: 01/16/25 Procedure(s): US OB cervical length Accession Number(s): [id number] cc: Elizabeth Hoang; Physician,Non-Staff M.DGeoffrey The [address] [address] Patient Name: TERESA BRADFORD MRN: [id number] date: 2000 Sex: F Assigned Patient Location: US Current Patient Location: US Accession/Order Number: [id number] Exam Date: 01/16/2025 16:46 Report Date: 01/16/2025 [...] Espinoza M.D. 01/16/2025 4:52 PM Dictation Location: [place] [address] Electronically authenticated by: [id number] Y Date: 6:52 Dictated By: Andres Espinoza D.O. Signed By:01/16/251654 DD/ 51 TD/TT: Sound Engineer Audio Control: us Elizabeth CARDONA [facility] Final Result * US OB ANATOMY (01/16/2025 4:52 PM EDT) Anatomical Region Laterality Modality Other 01/16/2025 4:52 PM EDT Narrative 01/16/2025 4:55 [place] [address] Ultrasound Report Signed Patient: TERESA BRADFORD MR#: [id number] : 2000 Acct:[id number] Age/Sex: 24 / F ADM Date: 01/16/25 Loc: US Attending Dr: Elizabeth Hoang Ordering Physician: Elizabeth Hoang Date of Service: 01/16/25 Procedure(s): US OB anatomy Accession Number(s): [id number] cc: Elizabeth Hoang; Physician,Non-Staff Fady The [address] [address] Patient Name: TERESA BRADFORD MRN: [id number] date: 2000 Sex: F Assigned Patient Location: US Current Patient Location: US Accession/Order Number: [id number] Exam Date: 01/16/2025 16:46 Report Date: 01/16/2025 [...] Espinoza M.D. 01/16/2025 4:52 PM Dictation Location: [employer] Electronically authenticated by: [id number] Y Date: 01/16/2025 16:52 Dictated By: Andres Espinoza D.O. Signed By: 01/16/251654 DD/ 51 TD/TT: Sound Engineer Audio Control: Procedure Note Radiology, Radiologist, MD - 01/16/2025 [place] [address] Ultrasound Report Signed Patient: TERESA BRADFORD [facility]#: [id number] : 2000Acct:[id number] Age/Sex: 24 / FADM Date: 01/16/25 Loc: US Attending Dr: Elizabeth Hoang Ordering Physician: Elizabeth Hoang Date of Service: 01/16/25 Procedure(s): US OB anatomy Accession Number(s): [id number] cc: Elizabeth Hoang; Physician,Non-Staff MTan The [address] [address] Patient Name: TERESA BRADFORD MRN: [id number] date: 2000 Sex: F Assigned Patient Location: US Current Patient Location: US Accession/Order Number: [id number] Exam Date: 01/16/2025 16:46 Report Date: 01/16/2025 [...] Espinoza M.D. 01/16/2025 4:52 PM Dictation Location: [employer] Electronically authenticated by: [id number] Y Date: 6:52 Dictated By: Andres Espinoza D.O. Signed By:01/16/251654 DD/ 51 TD/TT: Sound Engineer Audio Control: Elizabeth CARDONA [facility] Final Result from Last [address] [address]
--- OUTSIDE RECORDS SUMMARY | 2025-04-10 20:47 | XMS_ITS | Encounter Summary ---
Author Organization [facility] Address [address] [place] [address] Care Team Providers Care Surveyor Helper Name Role Phone Unavailable Primary Care Provider Unavailabl e Encounter Details Date Type Department Care Team (Late Contact Info) Description 11/10/2024 Abstract ARNOLDO OLIVA [address] [facility] [place] [address] Zion Dai DO [address] [facility] [address] Nikhil Santos, [facility]11 Social History Tobacco Use Types Packs/Day Years [...] Care Team (Late Contact Info) Description 04/18/2025 2:40 PM EDT Routine ARNOLDO OLIVA [address] [facility] [place] [address] Elizabeth Bonilla PA [address] [facility] [place] [address] documented as of this encounter Visit Diagnoses Not on filedocumented in this encounter
--- OUTSIDE RECORDS SUMMARY | 2025-04-10 20:47 | XMS_ITS | Encounter Summary ---
Author Organization [facility] Address [address] [place] [address] Care Team Providers Care Pricing/Signage Team Member Name Role Phone Unavailable Primary Care Provider Unavailabl e Encounter Details Date Type Department Care Team (Late Contact Info) Description 12/19/2024 Abstract ARNOLDO OLIVA [address] [facility] [place] [address] Zion Dai DO [address] [facility] [address] Nikhil Santos, [facility]11 Social History Tobacco Use Types Packs/Day [...] 2:40 PM EDT Routine ARNOLDO OLIVA [address] [facility] [place] [address] Elizabeth Bonilla PA [address] [facility] [place] [address] documented as of this encounter Visit Diagnoses Not on filedocumented in this encounter
--- OUTSIDE RECORDS SUMMARY | 2025-04-10 20:47 | XMS_ITS | Encounter Summary ---
Author Organization [facility] Address [address] [facility] [place] [address] Care Team Providers Care Manager Of Broadcast Content Name Role Phone Unavailable Primary Care Provider Unavailabl e Encounter Details Date Type Department Care Team ([facility] Contact Info) Description 01/17/2025 Orders Only ARNOLDO OLIVA [address] [facility] [place] [address] Radha Cassidy LPN 102 [facility] [address] [place] [id number] Social History Tobacco Use Types Packs/Day Years [...] Description 04/18/2025 2:40 PM EDT Routine NOMHarjeet OLIVA [address] [facility] [place] [address] Elizabeth Bonilla PA [address] [place], [place] [address] documented as of this encounter Procedures Procedure [...]
--- OUTSIDE RECORDS SUMMARY | 2025-04-10 20:47 | XMS_ITS | Encounter Summary ---
Author Organization [facility] Address [address] [place] [address] Care Team Providers Care Mural Artist Name Role Phone Unavailable Primary Care Provider Unavailabl e Encounter Details Date Type Department Care Team ([facility] Contact Info) Description 03/27/2025 Telephone NOMS Tom OBGYJoseph [address] [employer] [place] [address] Diana Heart LPN [address] [employer] [place] [phone] Social History Tobacco Use Types Packs/Day Years [...] guys could give me a call at [phone]. That would be awesome, thank you. I told pt that it was probably just due to her heartburn/acid reflux and offered to send in medication for that. PVU documented in this encounter Plan of Treatment Upcoming Encounters Date Type Department Care Team (Late st Contact Info) Description 04/18/2025 2:40 PM EDT Routine NOMS Tom OLIVA [address] [facility] [place] [address] Elizabeth Bonilla PA [address] [facility] [place] [address] documented as of this encounter Visit Diagnoses Diagnosis Gastroesophageal reflux in ([facility]) documented in this encounter
--- OUTSIDE RECORDS SUMMARY | 2025-04-10 20:47 | XMS_ITS | Encounter Summary ---
Author Organization [facility] Address [address] [place] [address] Care Team Providers Care Oil Operator Name Role Phone Unavailable Primary Care Provider Unavailabl e Encounter Details Date Type Department Care Team (Late Contact Info) Description 03/01/2025 Results Follow-Up ARNOLDO OLIVA [address] [facility] [place] [address] Diana Heart LPN [address] [employer] [place] [id number] ALL CBC WITH AUTO DIFF, GLUCOSE 1 [...] PM EDT Routine NOMS Tom OLIVA [address] [place] [address] Elizabeth Bonilla PA [address] [place] [address] [place] [address] documented as of this encounter Visit Diagnoses Not on filedocumented in this encounter
--- OUTSIDE RECORDS SUMMARY | 2025-04-10 20:47 | XMS_ITS | Encounter Summary ---
Author Organization [facility] Address [address] [place] [address] Care Team Providers Care Assistant Shift Supervisor Name Role Phone Unavailable Primary Care Provider Unavailabl e Encounter Details Date Type Department Care Team (Late Contact Info) Description 03/28/2025 Telephone NOMS Tom OLIVA [address] [facility] [place] [address] Diana Heart LPN [address] [place] [address] Social History Tobacco Use Types [...] PM EDT Routine NOMS Tom OLIVA [address] [place] [address] Elizabeth Bonilla PA [address] [place] [address] Scheduled Orders Name Type Priority Associated Diagnoses [...]
--- OUTSIDE RECORDS SUMMARY | 2025-04-10 20:48 | XMS_ITS | Encounter Summary ---
Author Organization [facility] Address [address] [place] [address] Care Team Providers Care Transitional Studies Instructor Name Role Phone Unavailable Primary Care Provider Unavailabl e Encounter Details Date Type Department Care Team (Late Contact Info) Description 04/03/2025 Bamboo flowsheet ARNOLDO OLIVA [address] [facility] [place] [address] Zion Dai DO [address] [facility] [address] Nikhil Santos, [facility]11 Social History Tobacco Use Types Packs/Day [...] 2:40 PM EDT Routine ARNOLDO OLIVA [address] [place] [address] Elizabeth Bonilla PA [address] [facility] [address] [place], [place] [phone] documented as of this encounter Visit Diagnoses Not on filedocumented in this encounter
--- OUTSIDE RECORDS SUMMARY | 2025-04-10 20:48 | XMS_ITS | Encounter Summary ---
Author Organization [facility] Address [address] [place] [address] Care Team Providers Care Multicraft Operator Name Role Phone Unavailable Primary Care Provider Unavailabl e Encounter Details Date Type Department Care Team (Late Contact Info) Description 04/05/2025 Clinisync Result Encounter [facility] External Department Unsolicited Reinaldo Dai DO [address] [facility] [address] [place], [place] [address] Social History Tobacco Use Types Packs/Day Years [...] Upcoming Encounters Date Type Department Care Team ([facility] Contact Info) Description 04/18/2025 2:40 PM EDT Routine NOMHarjeet Santos OBGYN [address] [place] [address] Elizabeth Bonilla PA [address] [facility] [address] [address] [place], [place] [address] documented as of this encounter Procedures Procedure Name Priority Date/Time Associated Diagnosis Comments US OB BPP W NON-STRESS 04/05/2025 12:51 PM EDT documented in this encounter Results * US OB BPP W NON-STRESS (04/05/2025 12:51 PM EDT) Anatomical Region Laterality Modality Other 04/05/2025 12:5 1 PM EDT Narrative 04/05/2025 12:53 [place] [address] Ultrasound Report Signed Patient: AYALA BRADFORD MR#: [id number] : 2000 Acct:[id number] Age/Sex: 24 / F ADM Date: 04/04/25 Loc: US Attending Dr: Reinaldo Dai D.O. Ordering Physician: Reinaldo Dai D.O. Date of Service: 04/04/25 Procedure(s): US OB BPP w non-stress Accession Number(s): [id number] cc: Reinaldo Dai D.O.; Physician,Non-Staff [place] [address] Patient Name: AYALA BRADFORD MRN: [facility]:[id number] date: 2000 Sex: F Assigned Patient Location: [facility] Current Patient Location: Accession/Order Number: [id number] Exam Date: 04/05/2025 12:49 Report Date: 04/05/2025 [...] Espinoza M.D. 04/05/2025 12:51 PM Dictation Location: [place] [address] Electronically authenticated by: [id number] Y Date: 04/05/2025 12:51 Dictated By: Andres Espinoza D.O. Signed By: 04/05/25 1253 DD/ 1251 TD/TT: Conveyor Belt Repairer: Procedure Note Radiology, Radiologist, - 04/05/2025 The [place] [id number] Ultrasound Report Signed Patient: AYALA BRADFORD NMR#: [id number] : 2000Acct:[id number] Age/Sex: 24 / FADM Date: 04/04/25 Loc: US Attending Dr: Reinaldo Dai D.O. Ordering Physician: Reinaldo Dai D.O. Date of Service: 04/04/25 Procedure(s): US OB BPP w non-stress Accession Number(s): [id number] cc: eRinaldo Dai D.O.; Physician,Non-Staff Fady The [address] [address] Patient Name: AYALA BRADFORD MRN: [facility]:[id number] date: 2000 Sex: F Assigned Patient Location: [facility] Current Patient Location: Accession/Order Number: [id number] Exam Date: 04/05/2025 12:49 Report Date: 04/05/2025 [...] Espinoza M.D. 04/05/2025 12:51 PM Dictation Location: [place] [address] Electronically authenticated by: [id number] Y Date: 2:51 Dictated By: Andres Espinoza D.O. Signed By:04/05/251252 DD/ 50 TD/TT: Conveyor Belt Repairer: us Reinaldo Dai DO [facility] Final Result documented in this encounter Visit Diagnoses Not on filedocumented in this encounter
--- OUTSIDE RECORDS SUMMARY | 2025-04-10 20:48 | XMS_ITS | Encounter Summary ---
Author Organization [facility] Address [address] [place] [address] Care Team Providers Care Data Processing Clerk Name Role Phone Unavailable Primary Care Provider Unavailabl e Encounter Details Date Type Department Care Team (Late Contact Info) Description 03/28/2025 Clinisync Result Encounter [facility]S External Department Unsolicited Reinaldo Dai DO [address] [facility] [address] [place], [place] [address] Social History Tobacco Use Types Packs/Day Years [...] Upcoming Encounters Date Type Department Care Team ([facility] Contact Info) Description 04/18/2025 2:40 PM EDT Routine NOMHarjeet Santos OBGYN [address] [place] [address] Elizabeth Bonilla PA [address] [facility] [address] [place], [place] [address] documented as of this encounter Procedures Procedure Name Priority Date/Time Associated Diagnosis Comments US OB BPP W NON-STRESS 03/28/2025 4:35 PM EDT documented in this encounter Results * US OB BPP W NON-STRESS (03/28/2025 4:35 PM EDT) Anatomical Region Laterality Modality Other 03/28/2025 4:35 PM EDT Narrative 03/28/2025 4:38 [place] [address] Ultrasound Report Signed Patient: AYALA BRADFORD MR#: [id number] : 2000 Acct:[id number] Age/Sex: 24 / F ADM Date: 03/28/25 Loc: [facility] [address]: Reinaldo Dai D.O. Ordering Physician: Reinaldo Dai D.O. Date of Service: 03/28/25 Procedure(s): US OB BPP w non-stress Accession Number(s): [id number] cc: Reinaldo Dai D.O.; Physician,Non-Staff Fady The [place] [address] Patient Name: AYALA BRADFORD MRN: [id number] date: 2000 Sex: F Assigned Patient Location: US Current Patient Location: US Accession/Order Number: [id number] Exam Date: 03/28/2025 16:35 Report Date: 03/28/2025 16:35 At the request of: REINALDO DAI DO Procedure: US OB BPP w non-stress Biophysical profile. Reason for exam: Excessive growth COMPARISON: None TECHNIQUE: Transabdominal imaging of the gravid uterus was obtained. FINDINGS: The tire maintenance technician reports a BPP of 8 out of 8. KATE is normal at 21.1 cm. heart rate 145 bpm. US/US OB BPP w non-stress IMPRESSION: BPP 8 out of 8. Impression dictated by: Albert Dodge Jr., D.O. 03/28/2025 4:35 PM Dictation Location: [place] [address] Electronically authenticated by: [id number] Y Date: 03/28/2025 16:35 Dictated By: Albert Dodge M.D. Signed By: 03/28/25 1638 DD/ 34 TD/TT: Service Desk Specialist: Procedure Note Radiology, Radiologist, - 03/28/2025 [place] [address] Ultrasound Report Signed Patient: AYALA BRADFORD NMR#: [id number] : 2000Acct:[id number] Age/Sex: 24 / FADM Date: 03/28/25 Loc: [facility] [address]: Reinaldo Dai D.O. Ordering Physician: Reinaldo Dai D.O. Date of Service: 03/28/25 Procedure(s): US OB BPP w non-stress Accession Number(s): [id number] cc: Reinaldo Dai D.O.; Physician,Non-Staff aFdy The [place] [address] Patient Name: AYALA BRADFORD MRN: [facility]:[id number] date: 2000 Sex: F Assigned Patient Location: US Current Patient Location: US Accession/Order Number: [id number] Exam Date: 03/28/2025 16:35 Report Date: 03/28/2025 16:35 At the request of: REINALDO DAI DO Procedure: US OB BPP w non-stress Biophysical profile. Reason for exam: Excessive growth COMPARISON: None TECHNIQUE: Transabdominal imaging of the gravid uterus was obtained. FINDINGS: The tire maintenance technician reports a BPP of 8 out of 8. KATE is normal at21.1 cm. heart rate 145 bpm. US/US OB BPP w non-stress IMPRESSION: BPP 8 out of 8. Impression dictated by: Albert Dodge Jr., D.O. 03/28/2025 4:35 PM Dictation Location: [place] [address] Electronically authenticated by: [id number] Y Date: 6:35 Dictated By: Albert Dodge M.D. Signed By:03/28/251637 DD/ 34 TD/TT: Service Desk Specialist: us Reinaldo Dai DO [facility] Final Result documented in this encounter Visit Diagnoses Not on filedocumented in this encounter
--- NOTE | 2025-04-10 20:57 | US_ITS ---
[place] [address] Patient Name: TERESA NGUYEN MRN: [id number] date: 2000 Sex: F Assigned Patient Location: [facility] Current Patient Location: [facility] Accession/Order Number: [id number] Exam Date: 04/10/2025 21:08 Report Date: 04/10/2025 22:03 At the request of: REINALDO DRUMMOND DO Procedure: US OB BPP w non-stress US OB BPP w non-stress 04/10/2025 9:50 PM SIGNS AND SYMPTOMS: ^08/21/2024 ^Decreased Movement \S.br\ PROTOCOL: Transabdominal sonographic images of the gravid uterus COMPARISON: None FINDINGS: heart rate: 122 bpm Amniotic fluid index: 24.59 cm. The deepest vertical pocket measures 8.6 cm[address] the patient just above the 95th percentile consistent with polyhydramnios. Estimated gestational age: 33 weeks 1 day Biophysical profile: breathing movements: 2/2 Gross body movements: 2/2 tone: 2/2 Amniotic fluid volume: 2/2 US/US OB BPP w non-stress IMPRESSION: Biophysical profile: 03/24 Amniotic fluid index: 24.59 cm. The deepest vertical pocket measures 8.6 cm. This places the patient just above the 95th percentile consistent with polyhydramnios. Impression dictated by: Didier Evans M.D. 04/10/2025 10:03 PM [facility]ation [facility] Electronically authenticated by: [id number] Y Date: 04/10/2025 22:03
[2025-04-10 21:03] VITALS: BP 127/65; PULSE 112
[2025-04-10 21:39] LABS: Glucose Urine UA NEGATIVE (NEGATIVE)
--- NOTE | 2025-04-10 21:40 | PC.NURSE ---
2049- Pt arrives to [facility] at this time. Pt taken to room 250 and given a urine specimen cup for sample. Pt states she has felt very little movement and movements have not been as strong. Pt denies other s/s other then having some upper left quadrant pain that comes and goes with movement. Pt denies cxt's. Pt spoke with this RN on phone prior to arrival to [facility] at 1956 d/t decreased movement concerns; RN advised pt to come in and eat a snack and drink fluids on her way to hospital. At this same time on unit and gave verbal orders to obtain BPP/NST once pt arrived. If results reactive, pt can be discharged home. RN confirmed and read back.
[2025-04-10 21:45] LABS: Cast Seen? NONE SEEN #/LPF (NONE SEEN); Crystals Seen? None Seen #/HPF (None Seen)
[2025-04-10 21:46] LABS: Urine Culture Indicated NO
== END 2025-04-10 22:20 | disposition home or self-care (01) ==
PROVIDERS: Admitting Provider Obstetrics & Gynecology; Visit Provider Obstetrics & Gynecology
DX: O36.8130 Decreased fetal movements, third trimester, not applicable or unspecified (principal); Z3A.33 33 weeks gestation of pregnancy
CPT/HCPCS: 76818; 81001; G0378; G0379

== ENCOUNTER 2025-04-14 16:59 | Outpatient (OUT) | payer BC, SELFPAY ==
--- OUTSIDE RECORDS SUMMARY | 2025-04-03 15:50 | XMS_ITS | Encounter Summary ---
Author Organization [facility] Address [address] [place] [address] Care Team Providers Care Pivot End Polisher Name Role Phone Unavailable Primary Care Provider Unavailabl e Reason for Visit * Reason Comments Routine Visit Encounter Details Date Type Department Care Team ([facility] Contact Info) Description 04/03/2025 3:50 PM EDT Routine ARNOLDO [place] OBGYN [address] [facility] [phone] Zion Dai DO [address] [facility] [place] [address] Third trimester ([facility]); 32 weeks gestation of ([facility]) Social History Tobacco Use Types Packs/Day [...] Sign Reading Time Taken Comments Blood Pressure 116/60 04/03/2025 3:52 PM EDT Pulse - - Temperature - - Respiratory Rate - - Oxygen Saturation - - Inhaled Oxygen Concentration - - Weight 83.7 kg (184 lb 8 oz) 04/03/2025 3:52 PM EDT Height - - Body Mass Index - - documented in this encounter Progress Notes * Guera Gutierrez LPN - 04/03/2025 3:50 PM EDT Reason for Appointment: Patient ID: Ayala Bradford is a 24 y.o. female who presents for Routine Visit Patient presents today for Return OB appointment. MEDICATIONS Current Outpatient Medications Medication Instructions famotidine (PEPCID) 20 mg, Oral, Daily ALLERGIES No Known Allergies PROBLEMS Active Ambulatory Problems Diagnosis Date Noted Diabetes mellitus screening 02/01/2025 Second trimester fetus ([facility]) 02/01/2025 23 weeks gestation of ([facility]) 02/01/2025 Resolved Ambulatory Problems Diagnosis Date Noted [...] nursing note reviewed. Exam conducted with a speech and language clinician present. Vitals: There is no height or weight on file to calculate BMI. BP: 116/60 Patient's last menstrual period was 08/21/2024. ASSESSMENT & PLAN ICD-10-CM 1. Third trimester ([facility]) Z34.93 POCT urinalysis dipstick manually resulted 2. 32 weeks gestation of ([facility]) Z3A.32 Patient presents today for a routine obstetrics appointment. Patient is currently 32w1d with a Estimated Date of Delivery: 05/28/25. Patient has no complaints at this time. Patient to returnto clinic in 2 weeks for routine OB appointment. Documented by Guera Gutierrez LPN on behalf of: Elizabeth Bonilla PA-C & Zion Dai DO documented in this encounter Plan of Treatment Upcoming Encounters Date Type Department Care Team (Late st Contact Info) Description 04/18/2025 2:40 PM EDT Routine [facility] [address] [facility] [phone] Elizabeth Bonilla PA [address] [facility] [address] [place], [place] [phone] documented as of this encounter Procedures Procedure Name Priority Date/Time Associated Diagnosis Comments POCT URINALYSIS DIPSTICK Routine 04/03/2025 3:57 PM EDT Third trimester ([facility]) documented in this encounter Results * POCT urinalysis dipstick manually resulted (04/03/2025 3:57 PM EDT) Color, UA Yellow Clarity, UA Clear Glucose, UA Negative Negative - 1999(110) ++++ mg/dL Bilirubin, UA Negative Negative - 4(70) +++ mg/dL Ketones, UA Negative Negative - 160(16) ++++ mg/dL Spec Grav, UA 1.010 1 - 1.03 Blood, UA Negative Negative - 50 Dany/mcL pH, UA 6.5 5 - 9 Protein, UA Negative Negative - 1999(20) ++++ mg/dL Urobilinogen, UA 0.2 0.2 - 12 mg/dL Leukocytes, UA Negative Negative - 500+++ Luz/mcL Nitrite, UA Negative Negative - Positive Urine 04/03/2025 3:57 PM EDT Zion Dai DO POINT OF CARE TEST ENTER/EDIT OR DERABLES Final Result documented in this encounter Visit Diagnoses Diagnosis Third trimester ([facility]) state, incidental 32 weeks gestation of ([facility]) documented in this encounter
--- OUTSIDE RECORDS SUMMARY | 2025-04-14 17:02 | XMS_ITS | Encounter Summary ---
Author Organization [facility] Address [address] [place] [address] Care Team Providers Care Lobster Man Name Role Phone Unavailable Primary Care Provider Unavailabl e Encounter Details Date Type Department Care Team (Late Contact Info) Description 04/10/2025 Clinisync Result Encounter NOMS External Department Unsolicited Zion Dai DO [address] [facility] [address] [facility] [address] [place], [place] [address] Social History Tobacco Use Types Packs/Day Years [...] Upcoming Encounters Date Type Department Care Team ([facility] Contact Info) Description 04/18/2025 2:40 PM EDT Routine ARNOLDO Santos OBDOMINICK [address] [facility] [place] [address] Elizabeth Bonilla PA [address] [place], [place] [address] documented as of this encounter Procedures Procedure Name Priority Date/Time Associated Diagnosis Comments TB URINE MICROSCOPIC ONLY Routine 04/10/2025 8:50 PM EDT TBH UA (CLEAN/CATCH) SELF PAY REPRESENTATIVE/MICRO IF IND. Routine 04/10/2025 8:50 PM EDT documented in this encounter Results * (ABNORMAL) TBH URINE MICROSCOPIC ONLY (04/10/2025 8:50 PM EDT) TBH WBC 0-2(A) NONE SEEN #/HPF TBH TBH RBC NONE SEEN 0 - 2 #/HPF TBH BACTERIA URINE NONE SEEN NONE SEEN #/HPF TBH MUCUS URINE NONE SEEN NONE SEEN TBH SQUAMOUS EPITHELIAL CELL URINE RARE NONE/RARE #/LPF TBH CRYSTALS SEEN? None Seen None Seen #/HPF TBH CAST SEEN? NONE SEEN NONE SEEN #/LPF TBH URINE CULTURE INDICATED NO TBH 04/10/2025 8:50 PM EDT 04/10/2025 9:36 PM EDT Narrative [facility] - 04/10/2025 9:46 PM EDT us Zion Malaika DO [facility] Final Result Performing Organization Address [facility] de Phone Number [facility]ISYNJ TB * (ABNORMAL) TBH UA (CLEAN/CATCH) SELF PAY REPRESENTATIVE/MICRO IF IND. (04/10/2025 8:50 PM EDT) COLOR URINE LT. YELLOW YELLOW TBH CLARITY URINE CLEAR CLEAR TBH SPECIFIC GRAVITY URINE <=1.005(A) 1.005 - 1.025 TBH PH URINE 6.0 5.0 - 9.0 TBH PROTEIN URINE NEGATIVE NEG/TRACE mg/dL TBH GLUCOSE URINE UA NEGATIVE NEGATIVE mg/dL TBH BILIRUBIN URINE NEGATIVE NEGATIVE TBH KETONES URINE NEGATIVE NEGATIVE mg/dL TBH BLOOD URINE NEGATIVE NEGATIVE TBH NITRITE URINE NEGATIVE NEGATIVE TBH UROBILINOGEN URINE 0.2 0.2 - 1.0 EU/dL TBH LEUKOCYTE ESTERASE URINE TRACE(A) NEGATIVE TBH URINE MICROSCOPIC INDICATED YES TBH 04/10/2025 8:50 PM EDT 04/10/2025 9:36 PM EDT Narrative [facility] - 04/10/2025 9:46 PM EDT Compassofty Malaika DO [facility] Final [facility] documented in this encounter Visit Diagnoses Not on filedocumented in this encounter
--- OUTSIDE RECORDS SUMMARY | 2025-04-14 17:02 | XMS_ITS | Encounter Summary ---
Author Organization [facility] Address [address] [place] [address] Care Team Providers Care Activities Specialist Name Role Phone Unavailable Primary Care Provider Unavailabl e Encounter Details Date Type Department Care Team (Late Contact Info) Description 03/01/2025 Results Follow-Up ARNOLDO OLIVA [address] [facility] [place] [address] Diana Haert LPN [address] [place] [id number] ALL CBC WITH AUTO DIFF, GLUCOSE 1 [...] 04/18/2025 2:40 PM EDT Routine NOMS Tom OILVA [address] [place] [address] Elizabeth Bonilla PA [address] [place] [address] [place] [address] documented as of this encounter Visit Diagnoses Not on filedocumented in this encounter
--- OUTSIDE RECORDS SUMMARY | 2025-04-14 17:02 | XMS_ITS | Encounter Summary ---
Author Organization [facility] Address [address] [place] [address] Care Team Providers Care Insolvency Consultant Name Role Phone Unavailable Primary Care Provider Unavailabl e Encounter Details Date Type Department Care Team (Late Contact Info) Description 04/05/2025 Clinisync Result Encounter NOMS External Department Unsolicited Reinaldo Dai DO [address] [facility] [address] [address] [place], [place] [address] Social History Tobacco Use Types Packs/Day Years [...] Upcoming Encounters Date Type Department Care Team ([facility] Contact Info) Description 04/18/2025 2:40 PM EDT Routine NOMHarjeet Santos OBGYN [address] [place] [address] Elizabeth Bonilla PA [address] [place], [place] [address] documented as of this encounter Procedures Procedure Name Priority Date/Time Associated Diagnosis Comments US OB BPP W NON-STRESS 04/05/2025 12:51 PM EDT documented in this encounter Results * US OB BPP W NON-STRESS (04/05/2025 12:51 PM EDT) Anatomical Region Laterality Modality Other 04/05/2025 12:5 1 PM EDT Narrative 04/05/2025 12:53 [place] [address] Ultrasound Report Signed Patient: AYALA BRADFORD MR#: [id number] : 2000 Acct:[id number] Age/Sex: 24 / F ADM Date: 04/04/25 Loc: US Attending Dr: Reinaldo Dai D.O. Ordering Physician: Reinaldo Dai D.O. Date of Service: 04/04/25 Procedure(s): US OB BPP w non-stress Accession Number(s): [id number] cc: Reinaldo Dai D.O.; Physician,Non-Staff Fady [place] [address] Patient Name: AYALA BRADFORD MRN: [facility]:[id number] date: 2000 Sex: F Assigned Patient Location: [facility] Current Patient Location: Accession/Order Number: [id number] Exam Date: 04/05/2025 12:49 Report Date: 04/05/2025 [...] Espinoza M.D. 04/05/2025 12:51 PM Dictation Location: [place] [address] Electronically authenticated by: [id number] Y Date: 04/05/2025 12:51 Dictated By: Andres Espinoza D.O. Signed By: 04/05/25 1253 DD/ 1251 TD/TT: Vacuum Cleaner Repair Person: Procedure Note Radiology, Radiologist, - 04/05/2025 The [place] [id number] Ultrasound Report Signed Patient: AYALA BRADFORD NMR#: [id number] : 2000Acct:[id number] Age/Sex: 24 / FADM Date: 04/04/25 Loc: US Attending Dr: Reinaldo Dai D.O. Ordering Physician: Reinaldo Dai D.O. Date of Service: 04/04/25 Procedure(s): US OB BPP w non-stress Accession Number(s): [id number] cc: Reinaldo Dai D.O.; Physician,Non-Staff Fady The [address] [address] Patient Name: AYALA BRADFORD MRN: [facility]:[id number] date: 2000 Sex: F Assigned Patient Location: [facility] Current Patient Location: Accession/Order Number: [id number] Exam Date: 04/05/2025 12:49 Report Date: 04/05/2025 [...] Espinoza M.D. 04/05/2025 12:51 PM Dictation Location: [place] [address] Electronically authenticated by: [id number] Y Date: 2:51 Dictated By: Andres Espinoza D.O. Signed By:04/05/251252 DD/ 50 TD/TT: Vacuum Cleaner Repair Person: us Reinaldo Dai DO [facility] Final Result documented in this encounter Visit Diagnoses Not on filedocumented in this encounter
--- OUTSIDE RECORDS SUMMARY | 2025-04-14 17:02 | XMS_ITS | Encounter Summary ---
Author Organization [facility] Address [address] [place] [address] Care Team Providers Care Armament Installer Name Role Phone Unavailable Primary Care Provider Unavailabl e Encounter Details Date Type Department Care Team (Late Contact Info) Description 04/03/2025 Bamboo flowsheet ARNOLDO OLIVA [address] [facility] [place] [address] Zion Dai DO [address] [facility] [address] [place], [facility] Social History Tobacco Use Types [...] 2:40 PM EDT Routine ARNOLDO OLIVA [address] [place] [address] Elizabeth Bonilla PA [address] [facility] [address] [place], [place] [address] documented as of this encounter Visit Diagnoses Not on filedocumented in this encounter
--- OUTSIDE RECORDS SUMMARY | 2025-04-14 17:02 | XMS_ITS | Encounter Summary ---
Author Organization [facility] Address [address] [place] [address] Care Team Providers Care Qa Consultant Name Role Phone Unavailable Primary Care Provider Unavailabl e Encounter Details Date Type Department Care Team (Late Contact Info) Description 12/19/2024 Abstract ARNOLDO OLIVA [address] [facility] [place] [address] Zion Dai DO [address] [facility] [address] [place], [facility] Social History Tobacco Use Types Packs/Day [...] 2:40 PM EDT Routine ARNOLDO OLIVA [address] [facility] [place] [address] Elizabeth Bonilla PA [address] [facility] [place] [address] documented as of this encounter Visit Diagnoses Not on filedocumented in this encounter
--- OUTSIDE RECORDS SUMMARY | 2025-04-14 17:02 | XMS_ITS | Encounter Summary ---
Author Organization [facility] Address [address] [facility] [place] [address] Care Team Providers Care Mechanical Energy Engineer Name Role Phone Unavailable Primary Care Provider Unavailabl e Encounter Details Date Type Department Care Team ([facility] Contact Info) Description 01/17/2025 Orders Only ARNOLDO OLIVA [address] [place] [address] Radha Cassidy LPN [address] [facility] [address] [place] [id number] Social History Tobacco Use Types Packs/Day Years [...] 2:40 PM EDT Routine NOMHarjeet OLIVA [address] [place] [address] Elizabeth Bonilla PA [address] [place], [place] [phone] documented as of this encounter Procedures Procedure [...]
--- OUTSIDE RECORDS SUMMARY | 2025-04-14 17:02 | XMS_ITS | Encounter Summary ---
Author Organization [facility] Address [address] [place] [address] Care Team Providers Care Oracle Analyst Name Role Phone Unavailable Primary Care Provider Unavailabl e Encounter Details Date Type Department Care Team (Late Contact Info) Description 11/10/2024 Abstract ARNOLDO OLIVA [address] [place] [address] Zion Dai DO [address] [facility] [address] [place], [facility]11 Social History Tobacco Use Types [...] 2:40 PM EDT Routine ARNOLDO OLIVA [address] [place] [address] Elizabeth Bonilla PA [address] [facility] [place] [address] documented as of this encounter Visit Diagnoses Not on filedocumented in this encounter
--- OUTSIDE RECORDS SUMMARY | 2025-04-14 17:02 | XMS_ITS | Clinical Summary ---
Author Organization [facility] Address [address] [place] [address] Care Team Providers Care Dispatcher Chief Coal Slurry Name Role Phone Unavailable Primary Care Provider Unavailabl e Allergies No known active allergies Medications famotidine (Pepcid) 20 MG tabletIndication s:Gastroesophage al Reflux Disease,Heartbur n Take 1 tablet (20 mg) by mouth Daily 30 tablet 11 03/27/2025 Active Active Problems Problem Noted Date Diagnosed Date Diabetes mellitus screening 02/01/2025 Second trimester fetus ([facility]) 02/01/2025 23 weeks gestation of ([facility]) 2024 Estimated Date of Delivery Comme nts Yes 05/28/2025 Based on last me nstrual period of 08/21/2024 Encounters Date Type Department Care Team Description 04/10/2025 Clinisync Result Encounter NOMS External Department Unsolicited Reinaldo Dai, 04/10/2025 Clinisync Result Encounter NOMS External Department Unsolicited Reinaldo Dai, 04/05/2025 Clinisync Result Encounter NOMS External Department Unsolicited Reinaldo Dai, 04/03/2025 3:50 PM EDT Routine [facility] Tom OLIVA [address] [place], [place] [address] [address] Reinaldo Dai, DO Third trimester ([facility]); 32 weeks gestation of ([facility]) 04/03/2025 Bamboo flowsheet [facility] [address] [facility] [place] [address] Reinaldo Dai, 03/28/2025 Clinisync Result Encounter NOMS External Department Unsolicited Reinaldo Dai, DO 03/28/2025 Telephone [facility] [place] [phone] Diana Heart LPN 03/27/2025 Telephone [facility] [place] [address] Diana Heart LPN 03/22/2025 1:30 PM [place] [address] Reinaldo Dai, DO 30 weeks gestation of ([facility]); Third trimester ([facility]); Elevated glucose tolerance test 03/22/2025 1:00 PM EDT Ancillary Procedure [facility] [place] [address] size inconsistent with dates ([facility]) 03/22/2025 Travel 03/09/2025 Clinisync Result Encounter NOMS External Department Unsolicited Reinaldo Dai, DO 03/06/2025 2:50 PM EDT Routine [facility] [place] [address] Elizabeth Hoang PA size inconsistent with dates ([facility]) (Primary Dx); Second trimester ([facility]); 28 weeks gestation of ([facility]) 03/06/2025 [place] [address] Elizabeth Hoang PA 03/06/2025 Travel 03/01/2025 [place] [address] Diana Heart, TAMEKA ALL CBC WITH AUTO DIFF, GLUCOSE 1 HOUR 03/01/2025 [place] [phone] Una Diana, LPN 02/24/2025 Clinisync Result Encounter NOMS External Department Unsolicited Reinaldo Dai DO 02/23/2025 Travel 02/01/2025 3:50 PM [place] [address] Reinaldo Dai, DO Diabetes mellitus screening; Second trimester fetus ([facility]); 23 weeks gestation of ([facility]) 02/01/2025 [place] [address] Reinaldo Dai, 01/25/2025 Travel 01/17/2025 [place] [phone] Radha Cassidy, COOKY MACHINE OPERATOR 01/16/2025 Clinisync Result Encounter NOMS External Department [...] [address] [place] [address] Elizabeth Hoang PA [address] [place] [address] Procedures Procedure Name Priority Date/Time Associated Diagnosis Comments US OB BPP W NON-STRESS 04/10/2025 10:03 PM EDT [facility] URINE MICROSCOPIC ONLY Routine 04/10/2025 8:50 PM EDT TBH UA (CLEAN/CATCH) MACHINE BINDER STRIPPER/MICRO IF IND. Routine 04/10/2025 8:50 PM EDT US OB BPP W NON-STRESS 04/05/2025 12:51 PM EDT POCT URINALYSIS DIPSTICK Routine 04/03/2025 3:57 PM EDT Third trimester ([facility]) US OB BPP W NON-STRESS 03/28/2025 4:35 PM EDT POCT URINALYSIS DIPSTICK Routine 03/22/2025 1:48 PM EDT 30 weeks gestation of ([facility]) Third trimester ([facility] US OB FOLLOW UP TRANSABDOMINAL APPROACH Routine 03/22/2025 1:22 PM EDT size inconsistent with dates ([facility]) GLUCOSE TOLERANCE 3 HOUR Routine 03/09/2025 7:37 AM EDT GLUCOSE 1 HOUR Routine 02/24/2025 3:55 PM EDT ALL CBC WITH AUTO DIFF Routine 3:55 PM EDT POCT URINALYSIS DIPSTICK Routine 02/01/2025 4:13 PM EDT Second trimester fetus ([facility]) 23 weeks gestation of ([facility]) US OB CERVICAL LENGTH 01/16/2025 4:52 PM EDT US OB ANATOMY 01/16/2025 4:52 PM EDT from Last 3 Months Results * US OB BPP W NON-STRESS (04/10/2025 10:03 PM EDT) Only the most recent of3 resultswithin the time period is included. Anatomical Region Laterality Modality Other 04/10/2025 10:0 3 PM EDT Narrative 04/10/2025 10:05 [place] [address] Ultrasound Report Signed Patient: TERESA NGUYEN MR#: [id number] : 2000 Acct:[id number] Age/Sex: 24 / F ADM Date: Loc: [facility] [address]: Reinaldo Dai D.O. Ordering Physician: Reinaldo Dai D.O. Date of Service: 04/10/25 Procedure(s): US OB BPP w non-stress Accession Number(s): [id number] cc: Reinaldo Dai D.O.; Physician,Non-Staff M.D. The [place] [id number] Patient Name: TERESA NGUYEN MRN: [facility]:[id number] date: 2000 Sex: F Assigned Patient Location: [facility] Current Patient Location: [facility] Accession/Order Number: [id number] Exam Date: 04/10/2025 21:08 Report Date: 04/10/2025 22:03 At the request of: REINALDO DAI DO Procedure: US OB BPP w non-stress US OB BPP w non-stress 04/10/2025 9:50 PM SIGNS AND SYMPTOMS: 08/21/2024 Decreased Movement S.br PROTOCOL: Transabdominal sonographic images of the gravid uterus COMPARISON: None FINDINGS: heart rate: 122 bpm Amniotic fluid index: 24.59 cm. The deepest vertical pocket measures 8.6 [address] the patient just above the 95th percentile consistent with polyhydramnios. Estimated gestational age: 33 weeks 1 day Biophysical profile: breathing movements: 2/2 Gross body movements: 2/2 tone: 2/2 Amniotic fluid volume: 2/2 US/US OB BPP w non-stress IMPRESSION: Biophysical profile: 03/24 Amniotic fluid index: 24.59 cm. The deepest vertical pocket measures 8.6 cm. This places the patient just above the 95th percentile consistent with polyhydramnios. Impression dictated by: Didier Evans M.D. 04/10/2025 10:03 PM Dictation Location: [place] [address] Electronically authenticated by: [id number] Y Date: 04/10/2025 22:03 Dictated By: Didier Evans M.D. Signed By: 04/10/252204 DD/ 02 TD/TT: Notched Blade Loader: Procedure Note Radiology, Radiologist, MD - 04/10/2025 [place] [address] Ultrasound Report Signed Patient: TERESA NGUYEN NMR#: [id number] : 2000Acct:[id number] Age/Sex: 24 FADM Date: Loc: [facility] 250- Attending Dr: Reinaldo Dai D.O. Ordering Physician: Reinaldo Dai D.O. Date of Service: 04/10/25 Procedure(s): US OB BPP w non-stress Accession Number(s): [id number] cc: Reinaldo Dai D.O.; Physician,Non-Staff Fady The [place] [address] Patient Name: TERESA NGUYEN MRN: [facility]:[id number] date: 2000 Sex: F Assigned Patient Location: [facility] Current Patient Location: [facility] Accession/Order Number: [id number] Exam Date: 04/10/2025 21:08 Report Date: 04/10/2025 22:03 At the request of: REINALDO DAI DO Procedure: US OB BPP w non-stress US OB BPP w non-stress 04/10/2025 9:50 PM SIGNS AND SYMPTOMS: 08/21/2024 Decreased Movement S.br PROTOCOL: Transabdominal sonographic images of the gravid uterus COMPARISON: None FINDINGS: heart rate: 122 bpm Amniotic fluid index: 24.59 cm. The deepest vertical pocket measures 8.6cm. This places the patient just above the 95th percentile consistent with polyhydramnios. Estimated gestational age: 33 weeks 1 day Biophysical profile: breathing movements: 2/2 Gross body movements: 2/2 tone: 2/2 Amniotic fluid volume: 2/2 US/US OB BPP w non-stress IMPRESSION: Biophysical profile: 03/24 Amniotic fluid index: 24.59 cm. The deepest vertical pocket measures 8.6cm. This places the patient just above the 95th percentile consistent with polyhydramnios. Impression dictated by: Didier Evans M.D. 04/10/2025 10:03 PM Dictation Location: [place] [address] Electronically authenticated by: [id number] Y Date: 2:03 Dictated By: Didier Evans M.D. Signed By:04/10/252204 DD/ 02 TD/TT: Notched Blade Loader: Reinaldo Dai DO [facility] IMAG[facility] Final Result * (ABNORMAL) [facility] URINE MICROSCOPIC ONLY (04/10/2025 [...] Narrative [facility] - 04/10/2025 9:46 PM EDT Reinaldo Malaika DO [facility] Final Result Performing Organization Address [facility] Co de Phone Number [facility] * (ABNORMAL) [facility] UA (CLEAN/CATCH) MACHINE BINDER STRIPPER/MICRO IF IND. (04/10/2025 8:50 PM EDT) COLOR [...] PM EDT 04/10/2025 9:36 PM EDT Narrative [facility] - 04/10/2025 9:46 PM EDT Reinaldojammie Padillao DO AYESHAISYNC Final Result Performing Organization Address [facility] Co de Phone Number [facility] * POCT urinalysis dipstick manually resulted (04/03/2025 [...] - Positive Urine 04/03/2025 3:57 PM EDT [facility] POINT OF CARE TEST ENTER/EDIT OR [...] SIGNED BY: Albert Snider MD Juani Aldrich DYE BOARDING MACHINE OPERATOR IMG OB US PROCEDURES Final Re sult * GLUCOSE TOLERANCE 3 HOUR (03/09/2025 7:37 AM EDT) Pathologist [facility] GLUCOSE TOLERANCE 3 HOUR mg/dL [facility] Comment: GLU FAST 87 (<95) Col: 03/09/25 0737 GLU 1HR 163 (<180) Col: 03/09/25 0844 GLU 2HR 142 (<155) Col: 03/09/25 0942 GLU 3HR 123 (<140) Col: 03/09/25 1042 03/09/2025 7:37 AM EDT 03/09/2025 7:38 AM EDT Narrative [facility] - 03/09/2025 11:43 AM EDT us Reinaldo Malaika DO LAB BLOOD ORDERABLES Final Resul t [facility] * (ABNORMAL) GLUCOSE 1 HOUR (02/24/2025 3:55 PM EDT) GLUCOSE 1 HOUR 157(H) <130 mg/dL TBH 02/24/2025 3:55 PM EDT 02/24/2025 4:03 PM EDT Narrative [facility] - 02/24/2025 4:43 PM EDT Reinaldo Malaika DO LAB BLOOD ORDERABLES Final Resul t [facility] * (ABNORMAL) ALL CBC WITH AUTO DIFF (02/24/2025 3:55 PM EDT) Pathologist [facility] TB WBC 9.5 4.0 - 11.0 10 3/uL TBH TBH RBC 3.74(L) 4.20 - 5.40 10 6/uL TBH TBH HGB 11.4(L) 12.0 - 16.0 g/dL TB TB HCT 33.8(L) 36.0 - 48.0 % TBH TBH MCV 90.4 81.0 - 99.0 fL TBH TBH MCH 30.5 26.7 - 34.0 pg TBH TBH MCHC 33.7 29.9 - 35.2 g/dL TB TBH RDW 12.6 11.0 - 15.0 % [...] us Reinaldo Malaika DO CL[facility] Final Result Performing Organization Address City/State/[facility] Co de Phone Number [facility] * US OB CERVICAL LENGTH (01/16/2025 4:52 PM EDT) Anatomical Region Laterality Modality Other 01/16/2025 4:52 PM EDT Narrative 01/16/2025 4:55 PM EDT [address] [address] Ultrasound Report Signed Patient: TERESA NGUYEN MR#: [id number] : 2000 Acct:[id number] Age/Sex: 24 / F ADM Date: 01/16/25 Loc: US Attending Dr: [place] Hoang Ordering Physician: Elizabeth Hoang Date of Service: 01/16/25 Procedure(s): US OB cervical length Accession Number(s): [id number] cc: [place] Hoang; Physician,Non-Staff M.DGeoffrey The [address] [address] Patient Name: TERESA NGUYEN MRN: [id number] date: 2000 Sex: F Assigned Patient Location: US Current Patient Location: US Accession/Order Number: [id number] Exam Date: 01/16/2025 16:46 Report Date: 01/16/2025 [...] Espinoza M.D. 01/16/2025 4:52 PM Dictation Location: [place] [address] Electronically authenticated by: [id number] Y Date: 01/16/2025 16:52 Dictated By: Andres Espinoza D.O. Signed By: 01/16/251654 DD/ 51 TD/TT: Notched Blade Loader: Procedure Note Radiology, Radiologist, MD - 01/16/2025 [place] [address] Ultrasound Report Signed Patient: TERESA NGUYEN [facility]#: [id number] : 2000Acct:[id number] Age/Sex: 24 / FADM Date: 01/16/25 Loc: US Attending Dr: [place] Hoang Ordering Physician: Elizabeth Hoang Date of Service: 01/16/25 Procedure(s): US OB cervical length Accession Number(s): [id number] cc: [place] Hoang; Physician,Non-Staff Fady The [place] [phone] Patient Name: TERESA NGUYEN MRN: [id number] date: 2000 Sex: F Assigned Patient Location: Current Patient Location: Accession/Order Number: [id number] Exam Date: 01/16/2025 16:46 Report Date: 01/16/2025 [...] Espinoza M.D. 01/16/2025 4:52 PM Dictation [facility] Electronically authenticated by: [id number] Y Date: 6:52 Dictated By: Andres Espinoza D.O. Signed By:01/16/251654 DD/ 51 TD/TT: Notched Blade Loader: us Elizabeth Chad PA [facility] IMAGING Final Result * US OB ANATOMY (01/16/2025 4:52 PM EDT) Anatomical Region Laterality Modality Other 01/16/2025 4:52 PM EDT Narrative 01/16/2025 4:55 PM EDT [address] [address] Ultrasound Report Signed Patient: TERESA NGUYEN MR#: [id number] : 2000 Acct:[id number] Age/Sex: 24 / F ADM Date: 01/16/25 Loc: US Attending Dr: Elizabeth Hoang Ordering Physician: Elizabeth Hoang Date of Service: 01/16/25 Procedure(s): US OB anatomy Accession Number(s): [id number] cc: [place] Hoang; Physician,Non-Staff M.DGeoffrey [address] [address] Patient Name: TERESA NGUYEN MRN: [id number] date: 2000 Sex: F Assigned Patient Location: US Current Patient Location: US Accession/Order Number: [id number] Exam Date: 01/16/2025 16:46 Report Date: 01/16/2025 [...] Espinoza M.D. 01/16/2025 4:52 PM Dictation Location: [employer] Electronically authenticated by: [id number] Y Date: 01/16/2025 16:52 Dictated By: Andres Espinoza D.O. Signed By: 01/16/251654 DD/ 51 TD/TT: Notched Blade Loader: Procedure Note Radiology, Radiologist, - 01/16/2025 [place] [address] Ultrasound Report Signed Patient: TERESA NGUYEN NMR#: [id number] : 2000Acct:[id number] Age/Sex: 24 / FADM Date: 01/16/25 Loc: US Attending Dr: [place] Hoang Ordering Physician: Elizabeth Hoang Date of Service: 01/16/25 Procedure(s): US OB anatomy Accession Number(s): [id number] cc: [place] Hoang; Physician,Non-Staff Fady The [address] [address] Patient Name: TERESA NGUYEN MRN: [id number] date: 2000 Sex: F Assigned Patient Location: US Current Patient Location: US Accession/Order Number: [id number] Exam Date: 01/16/2025 16:46 Report Date: 01/16/2025 [...] Espinoza M.D. 01/16/2025 4:52 PM Dictation Location: [employer] Electronically authenticated by: [id number] Y Date: 6:52 Dictated By: Andres Espinoza D.O. Signed By:01/16/251654 DD/ 51 TD/TT: Notched Blade Loader: Elizabeth CARDONA [facility] IMAGING Final Result from Last 3 Months Insurance
--- OUTSIDE RECORDS SUMMARY | 2025-04-14 17:02 | XMS_ITS | Encounter Summary ---
Author Organization [facility] Address [address] [place] [address] Care Team Providers Care Student Financial Aid Manager Name Role Phone Unavailable Primary Care Provider Unavailabl e Encounter Details Date Type Department Care Team (Late Contact Info) Description 04/10/2025 Clinisync Result Encounter NOMS External Department Unsolicited Reinaldo Dai DO [address] Nikhil Santos, [facility] Social History Tobacco Use Types Packs/Day Years [...] Upcoming Encounters Date Type Department Care Team ([facility] Contact Info) Description 04/18/2025 2:40 PM EDT Routine NOMHarjeet Santos OBGYN [address] [place] [address] Elizabeth Bonilla PA [address] [place], [place] [address] documented as of this encounter Procedures Procedure Name Priority Date/Time Associated Diagnosis Comments US OB BPP W NON-STRESS 04/10/2025 10:03 PM EDT documented in this encounter Results * US OB BPP W NON-STRESS (04/10/2025 10:03 PM EDT) Anatomical Region Laterality Modality Other 04/10/2025 10:0 3 PM EDT Narrative 04/10/2025 10:05 [place] [address] Ultrasound Report Signed Patient: AYALA BRADFORD MR#: [id number] : 2000 Acct:[id number] Age/Sex: 24 / F ADM Date: Loc: [facility] 250-[address]: Reinaldo Dai D.O. Ordering Physician: Reinaldo Dai D.O. Date of Service: 04/10/25 Procedure(s): US OB BPP w non-stress Accession Number(s): [id number] cc: Reinaldo Dai D.O.; Physician,Non-Staff Fady [place] [address] Patient Name: AYALA BRADFORD MRN: [id number] date: 2000 Sex: F Assigned Patient Location: [facility] Current Patient Location: [facility] Accession/Order Number: [id number] Exam Date: 04/10/2025 21:08 Report Date: 04/10/2025 [...] Evans M.D. 04/10/2025 10:03 PM Dictation Location: [place] [address] Electronically authenticated by: [id number] Y Date: 04/10/2025 22:03 Dictated By: Didier Evans M.D. Signed By: 04/10/252204 DD/ 02 TD/TT: [employer] Architect: Procedure Note Radiology, Radiologist, MD - 04/10/2025 [place] [address] Ultrasound Report Signed Patient: AYALA BRADFORD NMR#: [id number] : 2000Acct:[id number] Age/Sex: 24 / FADM Date: Loc: [facility] 250-[address]: Reinaldo Dai D.O. Ordering Physician: Reinaldo Dai D.O. Date of Service: 04/10/25 Procedure(s): US OB BPP w non-stress Accession Number(s): [id number] cc: Reinaldo Dai D.O.; Physician,Non-Staff Fady The [place] [address] Patient Name: AYALA BRADFORD MRN: [facility]:[id number] date: 2000 Sex: F Assigned Patient Location: [facility] Current Patient Location: [facility] Accession/Order Number: [id number] Exam Date: 04/10/2025 21:08 Report Date: 04/10/2025 [...] Evans M.D. 04/10/2025 10:03 PM Dictation Location: [employer] Electronically authenticated by: [id number] Y Date: 2:03 Dictated By: Didier Evans M.D. Signed By:04/10/252204 DD/ 02 TD/TT: [employer] Architect: Reinaldo Dai DO [facility] IMAGING Final Result documented in this encounter Visit Diagnoses Not on filedocumented in this encounter
[2025-04-14 17:13] VITALS: BP 121/68; PULSE 115
--- NOTE | 2025-04-14 17:16 | US_ITS ---
[place] [address] Patient Name: TERESA NGUYEN MRN: [id number] date: 2000 Sex: F Assigned Patient Location: [facility] Current Patient Location: [facility] Accession/Order Number: [id number] Exam Date: 04/14/2025 17:23 Report Date: 04/14/2025 18:17 At the request of: REINALDO DRUMMOND DO Procedure: US OB BPP w non-stress US OB BPP w non-stress 04/14/2025 5:51 PM SIGNS AND SYMPTOMS: ^08/21/24 ^excessive movement ^Y PROTOCOL: Transabdominal sonographic imaging of the gravid uterus COMPARISON: None FINDINGS: heart rate: 138 bpm Amniotic fluid index: 22.82 cm. The deepest vertical pocket measures 8.26 cm. Estimated gestational age: 33 weeks 5 days Biophysical profile: breathing movements: 2/2 Gross body movements: 2/2 tone: 2/2 Amniotic fluid volume: 2/2 US/US OB BPP w non-stress IMPRESSION: Biophysical profile: 03/24 Impression dictated by: Didier Evans M.D. 04/14/2025 6:17 PM Dictation Location: [place] Electronically authenticated by: [id number] Y Date: 04/14/2025 18:17
[2025-04-14 18:20] VITALS: BP 112/80; PULSE 123
== END 2025-04-14 18:20 | disposition home or self-care (01) ==
LOC: US 17:00 → FBC 17:08
PROVIDERS: Visit Provider Obstetrics & Gynecology
DX: O36.63X0 Maternal care for excessive fetal growth, third trimester, not applicable or unspecified (principal); O40.3XX0 Polyhydramnios, third trimester, not applicable or unspecified; Z3A.33 33 weeks gestation of pregnancy
CPT/HCPCS: 76818

== ENCOUNTER 2025-04-28 14:50 | Outpatient (OUT) | payer BC, SELFPAY ==
--- OUTSIDE RECORDS SUMMARY | 2025-04-27 15:00 | XMS_ITS | Encounter Summary ---
Author Organization [facility] Address [address] [place] [address] Care Team Providers Care Comptroller Name Role Phone Unavailable Primary Care Provider Unavailabl e Reason for Visit * Reason Comments Routine Visit Encounter Details Date Type Department Care Team ([facility] Contact Info) Description 04/27/2025 3:00 PM EDT Routine ARNOLDO Santos OBGYN [address] [facility] [place] [address] Elizabeth Bonilla PA [address] [facility] [address] [place], [facility]11 35 weeks gestation of (HHS-HCC); Third [...] Diabetes mellitus screening 02/01/2025 Second trimester fetus ([facility]) 02/01/2025 23 weeks gestation of ([facility]) 02/01/2025 Resolved Ambulatory Problems Diagnosis Date [...] PLAN ICD-10-CM 1. 35 weeks gestation of ([facility]) Z3A.35 POCT urinalysis dipstick manually resulted 2. Third trimester ([facility]) Z34.93 POCT urinalysis dipstick manually resulted 3. Excessive growth affecting management of in third trimester, single or unspecified fetus ([facility]) O36.63X0 4. Polyhydramnios in third trimester complication, single or unspecified fetus ([facility]) O40.3XX0 5. Gastroesophageal reflux in ([facility]) O99.619 K21.9 Return OB: Patient presents today [...] Care Team (Late st Contact Info) Description 05/02/2025 1:20 PM EDT Routine NOMS Tom BUTTGYJoseph [address] [facility] [place] [phone] Elizabeth Bonilla PA [address] [facility] [place] [address] documented as of this encounter Procedures Procedure Name Priority Date/Time Associated Diagnosis Comments POCT URINALYSIS DIPSTICK Routine 04/27/2025 3:15 PM EDT 35 weeks gestation of ([facility]) Third trimester ([facility]) documented in this encounter Results * (ABNORMAL) [...] Negative - 1999(20) ++++ mg/dL Urobilinogen, UA 1.0 0.2 - 12 mg/dL Leukocytes, UA Positive Negative - 500+++ Luz/mcL Comment:3+ Nitrite, UA Negative Negative - Positive Urine 04/27/2025 3:15 PM EDT Elizabeth CARDONA POINT OF CARE TEST ENTER/EDIT OR DERABLES Final Result documented in this encounter Visit Diagnoses Diagnosis 35 weeks gestation of ([facility]) Third trimester ([facility]) state, incidental Excessive growth affecting management of in third trimester, single or unspecified fetus ([facility]) Polyhydramnios in third trimester complication, single or unspecified fetus ([facility]) Gastroesophageal reflux in ([facility]) documented in this encounter
--- OUTSIDE RECORDS SUMMARY | 2025-04-28 14:52 | XMS_ITS | Encounter Summary ---
Author Organization [facility] Address [address] [place] [address] Care Team Providers Care Cut Tobacco Bulker Name Role Phone Unavailable Primary Care Provider Unavailabl e Encounter Details Date Type Department Care Team (Late Contact Info) Description 03/01/2025 Results Follow-Up ARNOLDO OLIVA [address] [facility] [place] [address] Diana Heart LPN [address] [place] [id number] ALL CBC WITH AUTO DIFF, GLUCOSE 1 [...] Department Care Team (Late Contact Info) Description 05/02/2025 1:20 PM EDT Routine NOMS Tom OLIVA [address] [place] [address] Elizabeth Bonilla PA [address] [place] [address] [place] [address] documented as of this encounter Visit Diagnoses Not on filedocumented in this encounter
--- OUTSIDE RECORDS SUMMARY | 2025-04-28 14:52 | XMS_ITS | Encounter Summary ---
Author Organization [facility] Address [address] [place] [address] Care Team Providers Care Peoplesoft Crm Developer Name Role Phone Unavailable Primary Care Provider Unavailabl e Encounter Details Date Type Department Care Team (Late Contact Info) Description 12/19/2024 Abstract ARNOLDO OLIVA [address] [facility] [place] [place] [address] Zion Dai DO [address] [facility] [address] Nikhil [place], [facility]11 Social History Tobacco Use Types Packs/Day [...] Info) Description 05/02/2025 1:20 PM EDT Routine ARNOLDO OLIVA [address] [facility] [place] [place] [address] Elizabeth Bonilla PA [address] [facility] [place] [address] documented as of this encounter Visit Diagnoses Not on filedocumented in this encounter
--- OUTSIDE RECORDS SUMMARY | 2025-04-28 14:52 | XMS_ITS | Clinical Summary ---
Author Organization [facility] Address [address] [place] [address] Care Team Providers Care Counselor Marriage And Family Name Role Phone Unavailable Primary Care Provider Unavailabl e Allergies No known active allergies Medications famotidine (Pepcid) 20 MG tabletIndication s:Gastroesophage al Reflux Disease,Heartbur n Take 1 tablet (20 mg) by mouth Daily 30 tablet 11 03/27/2025 Active Active Problems Problem Noted Date Diagnosed Date Diabetes mellitus screening 02/01/2025 Second trimester fetus ([facility]) 02/01/2025 23 weeks gestation of ([facility]) 2024 Estimated Date of Delivery Comme nts Yes 05/28/2025 Based on last me nstrual period of 08/21/2024 Encounters Date Type Department Care Team Description 04/27/2025 3:00 PM EDT Routine NOMS Tom OLIVA [address] [place] [address] [place] [address] Elizabeth Bonilla PA 35 weeks gestation of ([facility]); Third trimester ([facility]); Excessive growth affecting management of in third trimester, single or unspecified fetus ([facility]); Polyhydramnios in third trimester complication, single or unspecified fetus ([facility]); Gastroesophageal reflux in ([facility]) 04/27/2025 Bamboo flowsheet [facility]OM[facility] Tom OLIVA [address] [facility] [place] [address] Elizabeth Bonilla PA 04/14/2025 Clinisync Result Encounter NOMS External Department Unsolicited Reinaldo Dai, DO 04/10/2025 Clinisync Result Encounter NOMS External Department Unsolicited Reinaldo Dai, DO 04/10/2025 Clinisync Result Encounter NOMS External Department Unsolicited Reinaldo Dai, DO 04/05/2025 Clinisync Result Encounter NOMS External Department Unsolicited Reinaldo Dai, DO 04/03/2025 3:50 PM [place] [address] Reinaldo Dai, DO Third trimester ([facility]); 32 weeks gestation of ([facility]) 04/03/2025 [place] [address] Reinaldo Dai, DO 03/28/2025 Clinisync Result Encounter NOMS External Department Unsolicited Reinaldo Dai, DO 03/28/2025 [place] [address] Diana Heart, SKI LIFT OPERATOR 03/27/2025 [place] [address] Diana Heart, SKI LIFT OPERATOR 03/22/2025 1:30 PM [place] [address] Reinaldo Dai, DO 30 weeks gestation of ([facility]); Third trimester ([facility]); Elevated glucose tolerance test 03/22/2025 1:00 PM EDT Ancillary [place] [address] size inconsistent with dates ([facility]) 03/22/2025 Travel 03/09/2025 Clinisync Result Encounter NOMS External Department Unsolicited Reinaldo Dai, DO 03/06/2025 2:50 PM [place] [address] Elizabeth Bonilla PA size inconsistent with dates ([facility]) (Primary Dx); Second trimester ([facility]); 28 weeks gestation of ([facility]) 03/06/2025 [place] [address] Elizabeth Bonilla PA 03/06/2025 Travel 03/01/2025 Results [place] [address] Diana Heart LPN ALL CBC WITH AUTO DIFF, GLUCOSE 1 HOUR 03/01/2025 [place] [address] Diana Heart LPN 02/24/2025 Clinisync Result Encounter NOMS External Department Unsolicited Reinaldo Dai DO 02/23/2025 Travel 02/01/2025 3:50 PM [place] [address] Reinaldo Dai DO Diabetes mellitus screening; Second trimester fetus ([facility]); 23 weeks gestation of ([facility]) 02/01/2025 [place] [address] Reinaldo Dai DO from Last 3 Months Family History Medical [...] 05/02/2025 1:20 PM EDT Routine NOMS Tom OBGYN [address] [facility] [place] [address] Elizabeth Bonilla PA [address] [facility] [place] [address] Procedures Procedure Name Priority Date/Time Associated Diagnosis Comments POCT URINALYSIS DIPSTICK Routine 04/27/2025 3:15 PM EDT 35 weeks gestation of ([facility]) Third trimester ([facility]) US OB BPP W NON-STRESS 04/14/2025 6:17 PM EDT US OB BPP W NON-STRESS 04/10/2025 10:03 PM EDT [facility] URINE MICROSCOPIC ONLY Routine 04/10/2025 8:50 PM EDT [facility] UA (CLEAN/CATCH) ABSORPTION PLANT OPERATOR/MICRO IF IND. Routine 04/10/2025 8:50 PM EDT US OB BPP W NON-STRESS 04/05/2025 12:51 PM EDT POCT URINALYSIS DIPSTICK Routine 04/03/2025 3:57 PM EDT Third trimester ([facility]) US OB BPP W NON-STRESS 03/28/2025 4:35 PM EDT POCT URINALYSIS DIPSTICK Routine 03/22/2025 1:48 PM EDT 30 weeks gestation of ([facility]) Third trimester ([facility]) US OB FOLLOW UP TRANSABDOMINAL APPROACH Routine 03/22/2025 1:22 PM EDT size inconsistent with dates ([facility]) GLUCOSE TOLERANCE 3 HOUR Routine 03/09/2025 7:37 AM EDT GLUCOSE 1 HOUR Routine 02/24/2025 3:55 PM EDT ALL CBC WITH AUTO DIFF Routine 3:55 PM EDT POCT URINALYSIS DIPSTICK Routine 02/01/2025 4:13 PM EDT Second trimester fetus ([facility]) 23 weeks gestation of ([facility]) from Last 3 Months Results * (ABNORMAL) POCT urinalysis dipstick manually resulted (04/27/2025 3:15 PM EDT) Only the most recent of4 resultswithin the time period is included. Color, UA Colorless Clarity, UA Clear Glucose, [...] UA Negative Negative - Positive Urine 04/27/2025 3:1 5 PM EDT us Elizabeth CARDONA POINT OF CARE TEST ENTER/EDIT OR DERABLES Final Result * US OB BPP W NON-STRESS (04/14/2025 6:17 PM EDT) Only the most recent of4 resultswithin the time period is included. Anatomical Region Laterality Modality Other 04/14/2025 6:17 PM EDT Narrative 04/14/2025 6:19 [place] [address] Ultrasound Report Signed Patient: TERESA BRADFORD MR#: [id number] : 2000 Acct:[id number] Age/Sex: 24 / F ADM Date: 04/14/25 Loc: [facility] 250-[address]: Reinaldo Dai D.O. Ordering Physician: Reinaldo Dai D.O. Date of Service: 04/14/25 Procedure(s): US OB BPP w non-stress Accession Number(s): [id number] cc: Reinaldo Dai D.O.; Physician,Non-Staff M.DGeoffrey [address] [address] Patient Name: TERESA BRADFORD MRN: [facility]:[id number] date: 2000 Sex: F Assigned Patient Location: [facility] Current Patient Location: [facility] Accession/Order Number: [id number] Exam Date: 04/14/2025 17:23 Report Date: 04/14/2025 18:17 At the request of: REINALDO DAI DO Procedure: US OB BPP w non-stress US OB BPP w non-stress 04/14/2025 5:51 PM SIGNS AND SYMPTOMS: 08/21/24 excessive movement Y PROTOCOL: Transabdominal sonographic imaging of the gravid uterus COMPARISON: None FINDINGS: heart rate: 138 bpm Amniotic fluid index: 22.82 cm. The deepest vertical pocket measures 8.26 cm. Estimated gestational age: 33 weeks 5 days Biophysical profile: breathing movements: 2/2 Gross body movements: 2/2 tone: 2/2 Amniotic fluid volume: 2/2 US/US OB BPP w non-stress IMPRESSION: Biophysical profile: 03/24 Impression dictated by: Didier Evans M.D. 04/14/2025 6:17 PM Dictation Location: [place] [address] Electronically authenticated by: [id number] Y Date: 04/14/2025 18:17 Dictated By: Didier Evans M.D. Signed By: 04/14/251818 DD/ 16 TD/TT: Printer Repair Technician: Procedure Note Radiology, Radiologist, MD - 04/14/2025 [place] [address] Ultrasound Report Signed Patient: TERESA BRADFORD NMR#: [id number] : 2000Acct:[id number] Age/Sex: 24 / FADM Date: 04/14/25 Loc: [facility] 250-[address]: Reinaldo Dai D.O. Ordering Physician: Reinaldo Dai D.O. Date of Service: 04/14/25 Procedure(s): US OB BPP w non-stress Accession Number(s): [id number] cc: Reinaldo Dai D.O.; Physician,Non-Staff Fady [place] [address] Patient Name: TERESA BRADFORD MRN: [facility]:[id number] date: 2000 Sex: F Assigned Patient Location: [facility] Current Patient Location: [facility] Accession/Order Number: [id number] Exam Date: 04/14/2025 17:23 Report Date: 04/14/2025 18:17 At the request of: REINALDO DAI DO Procedure: US OB BPP w non-stress US OB BPP w non-stress 04/14/2025 5:51 PM SIGNS AND SYMPTOMS: 08/21/24 excessive movement Y PROTOCOL: Transabdominal sonographic imaging of the gravid uterus COMPARISON: None FINDINGS: heart rate: 138 bpm Amniotic fluid index: 22.82 cm. The deepest vertical pocket measures 8.26cm. Estimated gestational age: 33 weeks 5 days Biophysical profile: breathing movements: 2/2 Gross body movements: 2/2 tone: 2/2 Amniotic fluid volume: 2/2 US/US OB BPP w non-stress IMPRESSION: Biophysical profile: 03/24 Impression dictated by: Didier Evans M.D. 04/14/2025 6:17 PM Dictation Location: [place] [address] Electronically authenticated by: [id number] Y Date: 8:17 Dictated By: Didier Evans M.D. Signed By:04/14/251818 DD/ 16 TD/TT: Printer Repair Technician: Reinaldo Malaika DO [facility] Final Result [...] EDT Reinaldo Malaika DO [facility] Final Result [facility] TB * (ABNORMAL) [facility] UA (CLEAN/CATCH) ABSORPTION PLANT OPERATOR/MICRO IF IND. (04/10/2025 8:50 PM EDT) COLOR [...] CLINISYNC - 04/10/2025 9:46 PM EDT us Reinaldo Malaika DO [facility] Final Result [facility] * US OB follow up transabdominal approach [...] AM EDT) GLUCOSE TOLERANCE 3 HOUR mg/dL [facility] Comment: GLU FAST 87 (<95) Col: 03/09/25 0737 GLU 1HR 163 (<180) Col: 03/09/25 0844 GLU 2HR 142 (<155) Col: 03/09/25 0942 GLU 3HR 123 (<140) Col: 03/09/25 1042 03/09/2025 7:37 AM EDT 03/09/2025 7:38 AM EDT Narrative [facility] - 03/09/2025 11:43 AM EDT Reinaldo Malaika DO LAB BLOOD ORDERABLES Final Resul t [facility] * (ABNORMAL) GLUCOSE 1 HOUR (02/24/2025 3:55 PM EDT) GLUCOSE 1 HOUR 157(H) <130 mg/dL [facility] 02/24/2025 3:55 PM EDT 02/24/2025 4:03 PM EDT Narrative [facility] - 02/24/2025 4:43 PM EDT [facility] Final Resul t Performing Organization Address City/[facility] Co de Phone Number [facility] * (ABNORMAL) ALL CBC WITH AUTO DIFF (02/24/2025 3:55 PM EDT) Pathologist [facility] TB WBC 9.5 4.0 - 11.0 10 3/uL [facility] TB RBC 3.74(L) 4.20 - 5.40 10 6/uL [facility] TBH HGB 11.4(L) 12.0 - 16.0 g/dL TB TB HCT 33.8(L) 36.0 - 48.0 % [facility] TBH MCV 90.4 81.0 - 99.0 fL TBH TBH MCH 30.5 26.7 - 34.0 pg TBH TB MCHC 33.7 29.9 - 35.2 g/dL TB [...] us Reinaldo Malaika DO [facility] Final Result [facility] TB from Last 3 Months Insurance
--- OUTSIDE RECORDS SUMMARY | 2025-04-28 14:52 | XMS_ITS | Encounter Summary ---
Author Organization [facility] Address [address] [place] [address] [place] [address] Care Team Providers Care Air Traffic Controller Center Name Role Phone Unavailable Primary Care Provider Unavailabl e Encounter Details Date Type Department Care Team ([facility] Contact Info) Description 01/17/2025 Orders Only ARNOLDO OLIVA [address] [facility] [place] [address] Radha Cassidy LPN [address] [facility] [address] [place] [id number] Social History Tobacco Use Types Packs/Day Years [...] Info) Description 05/02/2025 1:20 PM EDT Routine NOMHarjeet OLIVA [address] [facility] [place] [address] Elizabeth Bonilla PA [address] [place], [place] [address] documented as of this encounter Procedures Procedure [...]
--- OUTSIDE RECORDS SUMMARY | 2025-04-28 14:53 | XMS_ITS | Encounter Summary ---
Author Organization [facility] Address [address] [place] [address] Care Team Providers Care Commutator Repairer Name Role Phone Unavailable Primary Care Provider Unavailabl e Encounter Details Date Type Department Care Team (Late Contact Info) Description 04/14/2025 Clinisync Result Encounter NOMS External Department Unsolicited Reinaldo Dai DO [address] [facility] [address] Nikhil [place], [place] [address] Social History Tobacco Use Types Packs/Day Years [...] Upcoming Encounters Date Type Department Care Team ([facility] Contact Info) Description 05/02/2025 1:20 PM EDT Routine NOMHarjeet Santos OBGYN [address] [facility] [place] [address] Elizabeth Bonilla PA [address] [facility] [address] [place], [place] [address] documented as of this encounter Procedures Procedure Name Priority Date/Time Associated Diagnosis Comments US OB BPP W NON-STRESS 04/14/2025 6:17 PM EDT documented in this encounter Results * US OB BPP W NON-STRESS (04/14/2025 6:17 PM EDT) Anatomical Region Laterality Modality Other 04/14/2025 6:17 PM EDT Narrative 04/14/2025 6:19 [place] [address] Ultrasound Report Signed Patient: AYALA BRADFORD MR#: [id number] : 2000 Acct:[id number] Age/Sex: 24 / F ADM Date: 04/14/25 Loc: [facility] 250-[address]: Reinaldo Dai D.O. Ordering Physician: Reinaldo Dai D.O. Date of Service: 04/14/25 Procedure(s): US OB BPP w non-stress Accession Number(s): [id number] cc: Reinaldo Dai D.O.; Physician,Non-Staff Fady [address] [address] Patient Name: AYALA BRADFORD MRN: [id number] date: 2000 Sex: F Assigned Patient Location: [facility] Current Patient Location: [facility] Accession/Order Number: [id number] Exam Date: 04/14/2025 17:23 Report Date: 04/14/2025 [...] Evans M.D. 04/14/2025 6:17 PM Dictation Location: [place] [address] Electronically authenticated by: [id number] Y Date: 04/14/2025 18:17 Dictated By: Didier Evans M.D. Signed By: 04/14/251818 DD/ 16 TD/TT: Dials Inspector: Procedure Note Radiology, Radiologist, - 04/14/2025 [place] [address] Ultrasound Report Signed Patient: AYALA BRADFORD NMR#: [id number] : 2000Acct:[id number] Age/Sex: 24 / FADM Date: 04/14/25 Loc: [facility] 250-[address]: Reinaldo Dai D.O. Ordering Physician: Reinaldo Dai D.O. Date of Service: 04/14/25 Procedure(s): US OB BPP w non-stress Accession Number(s): [id number] cc: Reinaldo Dai D.O.; Physician,Non-Staff Fady The [place] [address] Patient Name: AYALA BRADFORD MRN: [facility]:[id number] date: 2000 Sex: F Assigned Patient Location: [facility] Current Patient Location: [facility] Accession/Order Number: [id number] Exam Date: 04/14/2025 17:23 Report Date: 04/14/2025 [...] Evans M.D. 04/14/2025 6:17 PM Dictation [facility] Electronically authenticated by: [id number] Y Date: 8:17 Dictated By: Didier Evans M.D. Signed By:04/14/251818 DD/ 16 TD/TT: Dials Inspector: us Reinaldo Padillao DO [facility] Final Result documented in this encounter Visit Diagnoses Not on filedocumented in this encounter
--- OUTSIDE RECORDS SUMMARY | 2025-04-28 14:53 | XMS_ITS | Encounter Summary ---
Author Organization [facility] Address [address] [place] [address] Care Team Providers Care Video Production Specialist Name Role Phone Unavailable Primary Care Provider Unavailabl e Encounter Details Date Type Department Care Team (Late Contact Info) Description 11/10/2024 Abstract ARNOLDO OLIVA [address] [place] [address] Zion Dai DO [address] [facility] [address] [place], [facility] Social History Tobacco [...] 1:20 PM EDT Routine ARNOLDO OLIVA [address] [place] [address] Elizabeth Bonilla PA [address] [facility] [place] [address] documented as of this encounter Visit Diagnoses Not on filedocumented in this encounter
--- OUTSIDE RECORDS SUMMARY | 2025-04-28 14:53 | XMS_ITS | Encounter Summary ---
Author Organization [facility] Address [address] [place] [address] Care Team Providers Care Hand Tufter Name Role Phone Unavailable Primary Care Provider Unavailabl e Encounter Details Date Type Department Care Team (Late Contact Info) Description 04/27/2025 Bamboo flowsheet ARNOLDO OLIVA [address] [facility] [place] [place] [address] Elizabeth Bonilla PA [address] [facility] [address] [place], [facility]11 Social History Tobacco Use Types Packs/Day Years [...] 1:20 PM EDT Routine ARNOLDO OLIVA [address] [facility] [place] [address] Elizabeth Bonilla PA [address] [facility] [address] [place], [place] [address] documented as of this encounter Visit Diagnoses Not on filedocumented in this encounter
--- NOTE | 2025-04-28 14:56 | US_ITS ---
[place] [address] Patient Name: TERESA NGUYEN MRN: [facility]:[id number] date: 2000 Sex: F Assigned Patient Location: [facility] Current Patient Location: Accession/Order Number: [id number] Exam Date: 04/28/2025 15:00 Report Date: 04/28/2025 15:51 At the request of: REINALDO DRUMMOND DO Procedure: US OB BPP w non-stress Biophysical profile. Reason for exam: Excessive growth COMPARISON: 04/14/2025 TECHNIQUE: Transabdominal imaging of the gravid uterus was obtained. FINDINGS: The health and safety trainer reports a BPP of 8 out of 8. KATE is normal at 17.8 cm. heart rate 136 bpm. US/US OB BPP w non-stress IMPRESSION: BPP 8 out of 8. Impression dictated by: Albert Dodge Jr., D.O. 04/28/2025 3:51 PM Dictation Location: [place] [address] Electronically authenticated by: [id number] Y Date: 04/28/2025 15:51
[2025-04-28 15:19] VITALS: BP 108/59; PULSE 84
== END 2025-04-28 15:46 | disposition home or self-care (01) ==
LOC: US 14:50 → FBC 14:52
PROVIDERS: Visit Provider Obstetrics & Gynecology
DX: O36.63X0 Maternal care for excessive fetal growth, third trimester, not applicable or unspecified (principal); O40.3XX0 Polyhydramnios, third trimester, not applicable or unspecified
CPT/HCPCS: 76818

== ENCOUNTER 2025-05-04 20:04 | Outpatient (REF) | payer BC, SELFPAY ==
--- OUTSIDE RECORDS SUMMARY | 2025-04-27 15:00 | XMS_ITS | Encounter Summary ---
Author Organization [facility] Address [address] [place] [address] Care Team Providers Care Chief Compressor Station Engineer Name Role Phone Unavailable Primary Care Provider Unavailabl e Reason for Visit * Reason Comments Routine Visit Encounter Details Date Type Department Care Team ([facility] Contact Info) Description 04/27/2025 3:00 PM EDT Routine ARNOLDO Santos OBGYN [address] [place] [address] Elizabeth Bonilla PA [address] [place], [facility] 35 weeks gestation of ([facility]); Third trimester ([facility]); Excessive growth affecting management of in third trimester, single or unspecified fetus ([facility]); Polyhydramnios in third trimester complication, single or unspecified fetus ([facility]); Gastroesophageal reflux in ([facility]) Social History Tobacco Use Types Packs/Day Years [...] Sign Reading Time Taken Comments Blood Pressure 118/70 04/27/2025 3:08 PM EDT Pulse - - Temperature - - Respiratory Rate - - Oxygen Saturation - - Inhaled Oxygen Concentration - - Weight 84.3 kg (185 lb 12.8 oz) 04/27/2025 3:08 PM EDT Height - - Body Mass Index - - documented in this encounter Progress Notes * DULCE Deshpande - 04/27/2025 3:00 PM EDT Reason for Appointment: Patient ID: [...] Appearance: Normal appearance. She is normal weight. HENT: Head: Normocephalic. Cardiovascular: Rate and Rhythm: Normal rate. Pulses: Normal pulses. Pulmonary: Effort: Pulmonary effort is normal. Breath sounds: Normal breath sounds. Abdominal: Palpations: Abdomen is soft. Musculoskeletal: General: Normal range of motion. Neurological: General: No focal deficit present. Mental Status: She is alert and oriented to person, place, and time. Psychiatric: Mood and Affect: Mood normal. Behavior: Behavior normal. Thought Content: Thought content normal. Judgment: Judgment normal. Vitals and nursing note reviewed. Vitals: There is no height or weight on file to calculate BMI. BP: 118/70 Patient's last menstrual period was 08/21/2024. ASSESSMENT & PLAN ICD-10-CM 1. 35 weeks gestation of ([facility]) Z3A.35 POCT urinalysis dipstick manually resulted 2. Third trimester ([facility]) Z34.93 POCT urinalysis dipstick manually resulted 3. Excessive growth affecting management of in third trimester, single or unspecified fetus ([facility]) O36.63X0 4. Polyhydramnios in third trimester complication, single or unspecified fetus ([facility]) O40.3XX0 5. Gastroesophageal reflux in ([facility]) O99.619 K21.9 Return OB: Patient presents today for a routine obstetrics appointment. Patient is currently 35w4d . Patient states she is doing well but has complaints of being tired due to current . Patient has verbalizes frequent movement. labor precautions was discussed/given and patient was instructed to perform kick counts three times a day. Orders Placed This Encounter Procedures POCT urinalysis dipstick manually resulted Follow Up: Patient is to return to office in 1 week for routine OB appointment. Documented by DULCE Deshpande on behalf of: DULCE Deshpande documented in this encounter Plan of Treatment Not on file documented as of this encounter Procedures Procedure Name Priority Date/Time Associated Diagnosis Comments POCT URINALYSIS DIPSTICK Routine 04/27/2025 3:15 PM EDT 35 weeks gestation of ([facility]) Third trimester ([facility]) documented in this encounter Results * (ABNORMAL) POCT urinalysis dipstick manually resulted (04/27/2025 3:15 PM EDT) Color, UA Colorless Clarity, UA Clear Glucose, UA Negative Negative - 2000(110) ++++ mg/dL Bilirubin, UA Negative Negative - 4(70) +++ mg/dL Ketones, UA Negative Negative - 160(16) ++++ mg/dL Spec Grav, UA 1.005 1 - 1.03 Blood, UA Positive Negative - 50 Dany/mcL pH, UA 6.0 5 - 9 Protein, UA Negative Negative - 2000(20) ++++ mg/dL Urobilinogen, UA 1.0 0.2 - 12 mg/dL Leukocytes, UA Positive Negative - 500+++ Luz/mcL Comment:3+ Nitrite, UA Negative Negative - Positive Urine 04/27/2025 3:15 PM EDT Elizabeth CARDONA POINT OF CARE TEST ENTER/EDIT OR DERABLES Final Result documented in this encounter Visit Diagnoses Diagnosis 35 weeks gestation of ([facility]) Third trimester ([facility]) state, incidental Excessive growth affecting management of in third trimester, single or unspecified fetus ([facility]) Polyhydramnios in third trimester complication, single or unspecified fetus ([facility]) Gastroesophageal reflux in ([facility]) documented in this encounter
--- OUTSIDE RECORDS SUMMARY | 2025-05-04 14:50 | XMS_ITS | Encounter Summary ---
Author Organization [facility] Address [address] [place] [address] Care Team Providers Care Data Migration Consultant Name Role Phone Unavailable Primary Care Provider Unavailabl e Reason for Visit * Reason Comments Routine Visit Encounter Details Date Type Department Care Team ([facility] Contact Info) Description 05/04/2025 2:50 PM EDT Routine ARNOLDO OLIVA [address] [place] [address] lEizabeth Bonilla PA [address] [place], [facility]11 Third trimester ([facility]); 36 weeks gestation of ([facility]) Social History Tobacco Use Types Packs/Day [...] Diabetes mellitus screening 02/01/2025 Second trimester fetus ([facility]) 02/01/2025 23 weeks gestation of ([facility]) 02/01/2025 Resolved Ambulatory Problems Diagnosis Date [...] ASSESSMENT & PLAN ICD-10-CM 1. Third trimester ([facility]) Z34.93 POCT urinalysis dipstick manually resulted CULTURE, GROUP B STREP WITH SUSCEPTIBLITY CULTURE, GROUP B STREP WITH SUSCEPTIBLITY 2. 36 weeks gestation of ([facility]) Z3A.36 Patient is doing well but [...] STREP WITH SUSCEPTIBLITY Lab Routine Third trimester ([facility]) Expected: 05/04/2025, Expires: 05/04/2026 documented as of this encounter Procedures Procedure Name Priority Date/Time Associated Diagnosis Comments POCT URINALYSIS DIPSTICK Routine 05/04/2025 3:08 PM EDT Third trimester ([facility]) documented in this encounter Results * [...]
--- OUTSIDE RECORDS SUMMARY | 2025-05-04 20:07 | XMS_ITS | Encounter Summary ---
Author Organization [facility] Address [address] [place] [address] Care Team Providers Care Financial Examiner Name Role Phone Unavailable Primary Care Provider Unavailabl e Encounter Details Date Type Department Care Team ([facility] Contact Info) Description 04/27/2025 Bamboo flowsheet ARNOLDO Santos OBGYJoseph [address] [phone] Elizabeth Bonilla PA [address] [place], [facility]11 Social History Tobacco Use Types Packs/Day Years [...] as of this encounter Plan of Treatment Not on file documented as of this encounter Visit Diagnoses Not on filedocumented in this encounter
--- OUTSIDE RECORDS SUMMARY | 2025-05-04 20:07 | XMS_ITS | Encounter Summary ---
Author Organization [facility] Address [address] [place] [address] Care Team Providers Care Chair Lift Operator Name Role Phone Unavailable Primary Care Provider Unavailabl e Encounter Details Date Type Department Care Team ([facility] Contact Info) Description 12/19/2024 Abstract ARNOLDO [place] OBGYN [address] [place] [phone] Zion Dai DO [address] [place] [address] Social History Tobacco Use Types Packs/Day Years [...]
--- OUTSIDE RECORDS SUMMARY | 2025-05-04 20:07 | XMS_ITS | Encounter Summary ---
Author Organization [facility] Address [address] [place] [address] Care Team Providers Care Motor Scooter Repairer Name Role Phone Unavailable Primary Care Provider Unavailabl e Encounter Details Date Type Department Care Team ([facility] Contact Info) Description 04/28/2025 Clinisync Result Encounter NOMS External Department Unsolicited Reinaldo Dai, DO [address] [facility] [place] [address] Social History Tobacco Use Types [...] Diagnosis Comments US OB BPP W NON-STRESS 04/28/2025 3:51 PM EDT documented in this encounter Results * US OB BPP W NON-STRESS (04/28/2025 3:51 PM EDT) Anatomical Region Laterality Modality Other 04/28/2025 3:51 PM EDT Narrative 04/28/2025 3:53 PM EDT The [address] [address] Ultrasound Report Signed Patient: TERESA BRADFORD N MR#: [id number] : 2000 Acct:[id number] Age/Sex: 24 / F ADM Date: 04/28/25 Loc: US Attending Dr: Reinaldo Dai D.O. Ordering Physician: Reinaldo Dai D.O. Date of Service: 04/28/25 Procedure(s): US OB BPP w non-stress Accession Number(s): [id number] cc: Reinaldo Dai D.O.; Physician,Non-Staff Fady The [place] [id number] Patient Name: TERESA BRADFORD MRN: [facility]:[id number] date: 2000 Sex: F Assigned Patient Location: [facility] Current Patient Location: Accession/Order Number: [id number] Exam Date: 04/28/2025 15:00 Report Date: 04/28/2025 15:51 At the request of: REINALDO DAI DO Procedure: US OB BPP w non-stress Biophysical profile. Reason for exam: Excessive growth COMPARISON: 04/14/2025 TECHNIQUE: Transabdominal imaging of the gravid uterus was obtained. FINDINGS: The storage receipt poster reports a BPP of 8 out of 8. KATE is normal at 17.8 cm. heart rate 136 bpm. US/US OB BPP w non-stress IMPRESSION: BPP 8 out of 8. Impression dictated by: Albert Dodge Jr., D.O. 04/28/2025 3:51 PM Dictation Location: [place] [address] Electronically authenticated by: [id number] Y Date: 04/28/2025 15:51 Dictated By: Albert Dodge M.D. Signed By: 04/28/25 1553 DD/ 155 TD/TT: Heel Former: Procedure Note Radiology, Radiologist, - 04/28/2025 [place] [address] Ultrasound Report Signed Patient: TERESA BRADFORD NMR#: [id number] : 2000Acct:[id number] Age/Sex: 24 / FADM Date: 04/28/25 Loc: US Attending Dr: Reinaldo Dai D.O. Ordering Physician: Reinaldo Dai D.O. Date of Service: 04/28/25 Procedure(s): US OB BPP w non-stress Accession Number(s): [id number] cc: Reinaldo Dai D.O.; Physician,Non-Staff [place] [address] Patient Name: TERESA BRADFORD MRN: [facility]:[id number] date: 2000 Sex: F Assigned Patient Location: [facility] Current Patient Location: Accession/Order Number: [id number] Exam Date: 04/28/2025 15:00 Report Date: 04/28/2025 15:51 At the request of: REINALDO DAI DO Procedure: US OB BPP w non-stress Biophysical profile. Reason for exam: Excessive growth COMPARISON: 04/14/2025 TECHNIQUE: Transabdominal imaging of the gravid uterus was obtained. FINDINGS: The storage receipt poster reports a BPP of 8 out of 8. KATE is normal at17.8 cm. heart rate 136 bpm. US/US OB BPP w non-stress IMPRESSION: BPP 8 out of 8. Impression dictated by: Albert Dodge Jr., D.O. 04/28/2025 3:51 PM Dictation Location: [place] [address] Electronically authenticated by: [id number] Y Date: 5:51 Dictated By: Albert Dodge M.D. Signed By:04/28/25 1553 DD/ 1551 TD/TT: Heel Former: Reinaldo Dai DO [facility] Final Result documented in this encounter Visit Diagnoses Not on filedocumented in this encounter
--- OUTSIDE RECORDS SUMMARY | 2025-05-04 20:07 | XMS_ITS | Encounter Summary ---
Author Organization [facility] Address [address] [place] [address] Care Team Providers Care Mail Order Clerk Name Role Phone Unavailable Primary Care Provider Unavailabl e Encounter Details Date Type Department Care Team ([facility] Contact Info) Description 05/04/2025 Bamboo flowsheet ARNOLDO Santos OBGYJoseph [address] [place] [phone] Elizabeth Bonilla PA [address] [place], [facility]11 Social History Tobacco Use Types [...]
--- OUTSIDE RECORDS SUMMARY | 2025-05-04 20:07 | XMS_ITS | Clinical Summary ---
Author Organization [facility] Address [address] [place] [address] Care Team Providers Care Organ Tuner Name Role Phone Unavailable Primary Care Provider Unavailabl e Allergies No known active allergies Medications famotidine (Pepcid) 20 MG tabletIndication s:Gastroesophage al Reflux Disease,Heartbur n Take 1 tablet (20 mg) by mouth Daily 30 tablet 11 03/27/2025 Active Active Problems Problem Noted Date Diagnosed Date Diabetes mellitus screening 02/01/2025 Second trimester fetus ([facility]) 02/01/2025 23 weeks gestation of ([facility]) 2024 Estimated Date of Delivery Comme nts Yes 05/28/2025 Based on last me nstrual period of 08/21/2024 Encounters Date Type Department Care Team Description 05/04/2025 2:50 PM [place] [address] Elizabeth Bonilla PA Third trimester ([facility]); 36 weeks gestation of ([facility]) 05/04/2025 [place] [address] Elizabeth Bonilla PA 05/04/2025 Travel 04/28/2025 Clinisync Result Encounter NOMS External Department Unsolicited Reinaldo Dai DO 04/27/2025 3:00 PM [place] [address] Elizabeth Bonilla PA 35 weeks gestation of ([facility]); Third trimester ([facility]); Excessive growth affecting management of in third trimester, single or unspecified fetus ([facility]); Polyhydramnios in third trimester complication, single or unspecified fetus ([facility]); Gastroesophageal reflux in ([facility]) 04/27/2025 Bamboo flowsheet [facility] [address] [place] [address] Elizabeth Bonilla PA 04/14/2025 Clinisync Result Encounter NOMS External Department Unsolicited Malaika, Reinaldo, DO 04/10/2025 Clinisync Result Encounter NOMS External Department Unsolicited Malaika, Reinaldo, DO 04/10/2025 Clinisync Result Encounter NOMS External Department Unsolicited Malaika, Reinaldo, DO 04/05/2025 Clinisync Result Encounter NOMS External Department Unsolicited Malaika, Reinaldo, DO 04/03/2025 3:50 PM EDT Routine [facility] [address] [place] [address] Reinaldo Dai, DO Third trimester ([facility]); 32 weeks gestation of ([facility]) 04/03/2025 Bamboo flowsheet [facility] [place] [facility] [address] [place] [address] Reinaldo Dai, DO 03/28/2025 Clinisync Result Encounter NOMS External Department Unsolicited Malaika, Reinaldo, DO 03/28/2025 Telephone [facility] [address] [place] [address] [facility] LPN 03/27/2025 Telephone [facility] [address] [place] [address] [facility] LPN 03/22/2025 1:30 PM EDT Routine [facility] [address] [place] [address] Reinaldo Dai DO 30 weeks gestation of ([facility]); Third trimester ([facility]); Elevated glucose tolerance test 03/22/2025 1:00 PM EDT Ancillary Procedure [facility] [place] [facility] [address] size inconsistent with dates ([facility]) 03/22/2025 Travel 03/09/2025 Clinisync Result Encounter NOMS External Department Unsolicited Reinaldo Dai, 03/06/2025 2:50 PM [place] [address] Elizabeth Bonilla PA size inconsistent with dates ([facility]) (Primary Dx); Second trimester ([facility]); 28 weeks gestation of ([facility]) 03/06/2025 Bamboo flowsheet [facility] [place] [address] Elizabeth Bonilla PA 03/06/2025 Travel 03/01/2025 [place] [phone] [facility], PROJECT STRUCTURAL ENGINEER ALL CBC WITH AUTO DIFF, GLUCOSE 1 HOUR 03/01/2025 [place] [address] [facility] LPN 02/24/2025 Clinisync Result Encounter NOMS External Department Unsolicited Reinaldo Dai DO 02/23/2025 Travel 02/01/2025 3:50 PM [place] [address] Reinaldo Dai DO Diabetes mellitus screening; Second trimester fetus ([facility]); 23 weeks gestation of ([facility]) 02/01/2025 Bamboo flowsheet [facility] [address] [place] [address] Reinaldo Dai DO from Last 3 Months [...] Mass Index - - Plan of Treatment Not on file Procedures Procedure Name Priority Date/Time Associated Diagnosis Comments POCT URINALYSIS DIPSTICK Routine 05/04/2025 3:08 PM EDT Third trimester ([facility]) US OB BPP W NON-STRESS 04/28/2025 3:51 PM EDT POCT URINALYSIS DIPSTICK Routine 04/27/2025 3:15 PM EDT 35 weeks gestation of ([facility]) Third trimester ([facility]) US OB BPP W NON-STRESS 04/14/2025 6:17 PM EDT US OB BPP W NON-STRESS 04/10/2025 10:03 PM EDT [facility] URINE MICROSCOPIC ONLY Routine 04/10/2025 8:50 PM EDT [facility] UA (CLEAN/CATCH) POLYSTYRENE MOLDING MACHINE TENDER/MICRO IF IND. Routine 04/10/2025 8:50 PM EDT US OB BPP W NON-STRESS 04/05/2025 12:51 PM EDT POCT URINALYSIS DIPSTICK Routine 04/03/2025 3:57 PM EDT Third trimester ([facility]) US OB BPP W NON-STRESS 03/28/2025 4:35 PM EDT POCT URINALYSIS DIPSTICK Routine 03/22/2025 1:48 PM EDT 30 weeks gestation of ([facility]) Third trimester ([facility]) US OB FOLLOW UP TRANSABDOMINAL APPROACH Routine 03/22/2025 1:22 PM EDT size inconsistent with dates ([facility]) GLUCOSE TOLERANCE 3 HOUR Routine 03/09/2025 7:37 AM EDT GLUCOSE 1 HOUR Routine 02/24/2025 3:55 PM EDT ALL CBC WITH AUTO DIFF Routine 3:55 PM EDT POCT URINALYSIS DIPSTICK Routine 02/01/2025 4:13 PM EDT Second trimester fetus ([facility]) 23 weeks gestation of ([facility]) from Last 3 Months Results * (ABNORMAL) POCT urinalysis dipstick manually resulted (05/04/2025 3:08 PM EDT) Only the most recent of5 resultswithin the time period is included. Color, [...] - Positive Urine 05/04/2025 3:08 PM EDT Elizabeth CARDONA POINT OF CARE TEST ENTER/EDIT OR DERABLES Final Result * US OB BPP W NON-STRESS (04/28/2025 3:51 PM EDT) Only the most recent of5 resultswithin the time period is included. Anatomical Region Laterality Modality Other 04/28/2025 3:51 PM EDT Narrative 04/28/2025 3:53 [place] [address] Ultrasound Report Signed Patient: TERESA BRADFORD MR#: [id number] : 2000 Acct:[id number] Age/Sex: 24 / F ADM Date: 04/28/25 Loc: US Attending Dr: Reinaldo Dai D.O. Ordering Physician: Reinaldo Dai D.O. Date of Service: 04/28/25 Procedure(s): US OB BPP w non-stress Accession Number(s): [id number] cc: Reinaldo Dai D.O.; Physician,Non-Staff M.DGeoffrey The [address] [address] Patient Name: TERESA BRADFORD MRN: [facility]:[id number] date: 2000 Sex: F Assigned Patient Location: [facility] Current Patient Location: Accession/Order Number: [id number] Exam Date: 04/28/2025 15:00 Report Date: 04/28/2025 15:51 At the request of: REINALDO DAI DO Procedure: US OB BPP w non-stress Biophysical profile. Reason for exam: Excessive growth COMPARISON: 04/14/2025 TECHNIQUE: Transabdominal imaging of the gravid uterus was obtained. FINDINGS: The township clerk reports a BPP of 8 out of 8. KATE is normal at 17.8 cm. heart rate 136 bpm. US/US OB BPP w non-stress IMPRESSION: BPP 8 out of 8. Impression dictated by: Albert Dodge Jr., D.O. 04/28/2025 3:51 PM Dictation Location: [place] [address] Electronically authenticated by: [id number] Y Date: 04/28/2025 15:51 Dictated By: Albert Dodge M.D. Signed By: 04/28/25 1553 DD/ 155 TD/TT: Motorcycle Delivery Driver: Procedure Note Radiology, Radiologist, - 04/28/2025 [place] [address] Ultrasound Report Signed Patient: TERESA BRADFORD NMR#: [id number] : 2000Acct:[id number] Age/Sex: 24 / FADM Date: 04/28/25 Loc: US Attending Dr: Reinaldo Dai D.O. Ordering Physician: Reinaldo Dai D.O. Date of Service: 04/28/25 Procedure(s): US OB BPP w non-stress Accession Number(s): [id number] cc: Reinaldo Dai D.O.; Physician,Non-Staff Fady The [place] [id number] Patient Name: TERESA BRADFORD MRN: [id number]:[id number] date: 2000 Sex: F Assigned Patient Location: [facility] Current Patient Location: Accession/Order Number: [id number] Exam Date: 04/28/2025 15:00 Report Date: 04/28/2025 15:51 At the request of: REINALDO DAI DO Procedure: US OB BPP w non-stress Biophysical profile. Reason for exam: Excessive growth COMPARISON: 04/14/2025 TECHNIQUE: Transabdominal imaging of the gravid uterus was obtained. FINDINGS: The township clerk reports a BPP of 8 out of 8. KATE is normal at17.8 cm. heart rate 136 bpm. US/US OB BPP w non-stress IMPRESSION: BPP 8 out of 8. Impression dictated by: Albert Dodge Jr., D.O. 04/28/2025 3:51 PM Dictation Location: [place] [address] Electronically authenticated by: [id number] Y Date: :51 Dictated By: Albert Dodge M.D. Signed By:04/28/25 1553 DD/ 155 TD/TT: Motorcycle Delivery Driver: Reinaldo Malaika DO [facility] Final Result [...] EDT Reinaldo Malaika DO [facility] Final Result [facility] TB * (ABNORMAL) [facility] UA (CLEAN/CATCH) POLYSTYRENE MOLDING MACHINE TENDER/MICRO IF IND. (04/10/2025 8:50 PM EDT) COLOR [...] us Reinaldo Malaika DO [facility] Final Result [facility] * US OB follow up transabdominal [...] AM EDT) GLUCOSE TOLERANCE 3 HOUR mg/dL [facility] Comment: GLU FAST 87 (<95) Col: 03/09/25 0737 GLU 1HR 163 (<180) Col: 03/09/25 0844 GLU 2HR 142 (<155) Col: 03/09/25 0942 GLU 3HR 123 (<140) Col: 03/09/25 1042 03/09/2025 7:37 AM EDT 03/09/2025 7:38 AM EDT Narrative [facility] - 03/09/2025 11:43 AM EDT Reinaldo Malaika DO LAB BLOOD ORDERABLES Final Resul t [facility] * (ABNORMAL) GLUCOSE 1 HOUR (02/24/2025 3:55 PM EDT) GLUCOSE 1 HOUR 157(H) <130 mg/dL TB 02/24/2025 3:55 PM EDT 02/24/2025 4:03 PM EDT [facility]ative [facility] - 02/24/2025 4:43 PM EDT [facility] BLOOD ORDERABLES Final Resul t Performing Organization Address [facility] Co de Phone Number [facility] * (ABNORMAL) ALL CBC WITH AUTO DIFF (02/24/2025 3:55 PM EDT) [facility] TB WBC 9.5 4.0 - 11.0 10 3/uL [facility] TB RBC 3.74(L) 4.20 - 5.40 10 6/uL [facility] TB HGB 11.4(L) 12.0 - 16.0 g/dL TB TB HCT 33.8(L) 36.0 - 48.0 % TB TB MCV 90.4 81.0 - 99.0 fL [facility] TB MCH 30.5 26.7 - 34.0 pg [facility] TB MCHC 33.7 29.9 - 35.2 g/dL TB TB RDW 12.6 11.0 - 15.0 % [facility] TB PLT 252 150 - 450 10 3/uL [facility] TB MPV 10.1 9.5 - 13.5 fL [facility] [...] Narrative [facility] - 02/24/2025 4:15 PM EDT Reinaldo Malaika DO [facility] Final Result [facility] TB from Last 3 Months Insurance
--- OUTSIDE RECORDS SUMMARY | 2025-05-04 20:07 | XMS_ITS | Encounter Summary ---
Author Organization [facility] Address [address] [place] [address] Care Team Providers Care Screwmaker Automatic Name Role Phone Unavailable Primary Care Provider Unavailabl e Encounter Details Date Type Department Care Team ([facility] Contact Info) Description 11/10/2024 Abstract ARNOLDO [place] OBGYN [address] [place] [phone] Zion Dai DO [address] [place] [address] Social History Tobacco Use Types Packs/Day Years [...]
--- OUTSIDE RECORDS SUMMARY | 2025-05-04 20:07 | XMS_ITS | Encounter Summary ---
Author Organization [facility] Address [address] [place] [address] Care Team Providers Care Digital Librarian Name Role Phone Unavailable Primary Care Provider Unavailabl e Encounter Details Date Type Department Care Team ([facility] Contact Info) Description 01/17/2025 Orders Only ARNOLDO [place] OBGYN [email or web address] [phone] Radha Cassidy LPN [address] [place] [address] Social History Tobacco Use Types Packs/Day Years [...] EDT) Swab Cervical swab / Unknown Malaika Nurse [facility] LAB CYTOLOGY ORDERABLES Final Result EXTERNAL LAB documented in this encounter Visit Diagnoses Not on filedocumented in this encounter
--- OUTSIDE RECORDS SUMMARY | 2025-05-04 20:07 | XMS_ITS | Encounter Summary ---
Author Organization [facility] Address [address] [place] [address] Care Team Providers Care Test Center Manager Name Role Phone Unavailable Primary Care Provider Unavailabl e Encounter Details Date Type Department Care Team ([facility] Contact Info) Description 03/01/2025 Results Follow-Up ARNOLDO [place] [facility] [address] [place] [address] Diana Heart LPN [address] [place] [address] ALL CBC WITH AUTO DIFF, GLUCOSE 1 [...]
--- OUTSIDE RECORDS SUMMARY | 2025-05-04 20:07 | XMS_ITS | Encounter Summary ---
Author Organization [facility] Healthcare Address [address] [place] [address] Care Team Providers Care Hospital Television Rental Clerk Name Role Phone Unavailable Primary Care Provider Unavailabl e Encounter Details Date Type Department Care Team (Latest Contact Info) Description 05/04/2025 Travel Social History Tobacco Use Types Packs/Day [...]
== END 2025-05-04 20:05 | disposition home or self-care (01) ==
LOC: LAB 20:04
PROVIDERS: Visit Provider Physician Assistant
DX: Z34.93 Encounter for supervision of normal pregnancy, unspecified, third trimester (principal)
CPT/HCPCS: 87081

== ENCOUNTER 2025-05-05 14:49 | Outpatient (OUT) | payer BC, SELFPAY ==
--- NOTE | 2025-05-05 14:52 | US_ITS ---
[place] [address] Patient Name: TERESA NGUYEN MRN: [id number] date: 2000 Sex: F Assigned Patient Location: [facility] Current Patient Location: Accession/Order Number: [id number] Exam Date: 05/05/2025 15:00 Report Date: 05/05/2025 17:28 At the request of: REINALDO DRUMMOND DO Procedure: US OB BPP w non-stress Ultrasound biophysical profile HISTORY: Excessive growth Adequate breathing movement, gross body movement, tone and amniotic fluid volume for total score of 8 out of 8. The amniotic fluid index is 21.7cm within normal limits. The heart rate 135 bpm. US/US OB BPP w non-stress IMPRESSION: Adequate ultrasound biophysical profile Impression dictated by: Andres Espinoza M.D. 05/05/2025 5:28 PM Dictation Location: [place] [address] Electronically authenticated by: [id number] Y Date: 05/05/2025 17:28
[2025-05-05 15:20] VITALS: BP 119/58; PULSE 81
== END 2025-05-05 15:45 | disposition home or self-care (01) ==
LOC: US 14:49 → FBC 14:53
PROVIDERS: Visit Provider Obstetrics & Gynecology
DX: O36.63X0 Maternal care for excessive fetal growth, third trimester, not applicable or unspecified (principal); O40.3XX0 Polyhydramnios, third trimester, not applicable or unspecified
CPT/HCPCS: 76818

== ENCOUNTER 2025-05-11 05:32 | Inpatient (IN) | payer BC, SELFPAY ==
--- OUTSIDE RECORDS SUMMARY | 2025-04-27 15:00 | XMS_ITS | Encounter Summary ---
Author Organization [facility] Address [address] [place] [address] Care Team Providers Care Manager It Training Name Role Phone Unavailable Primary Care Provider Unavailabl e Reason for Visit * Reason Comments Routine Visit Encounter Details Date Type Department Care Team ([facility] Contact Info) Description 04/27/2025 3:00 PM EDT Routine ARNOLDO Santos OBGYN [address] [facility] [place] [address] Elizabeth Bonilla PA [address] [facility] [address] [place], [facility]11 35 weeks gestation of (HHS-HCC); Third trimester [...] trimester fetus ([facility]) 02/01/2025 23 weeks gestation of ([facility]) 02/01/2025 Resolved Ambulatory Problems Diagnosis Date Noted [...] PLAN ICD-10-CM 1. 35 weeks gestation of ([facility]) Z3A.35 POCT urinalysis dipstick manually resulted 2. Third trimester ([facility]) Z34.93 POCT urinalysis dipstick manually resulted 3. Excessive growth affecting management of in third trimester, single or unspecified fetus ([facility]) O36.63X0 4. Polyhydramnios in third trimester complication, single or unspecified fetus ([facility]) O40.3XX0 5. Gastroesophageal reflux in ([facility]) O99.619 K21.9 Return OB: Patient presents today [...] 3:15 PM EDT 35 weeks gestation of ([facility]) Third trimester ([facility]) documented in this encounter Results * (ABNORMAL) [...]
--- OUTSIDE RECORDS SUMMARY | 2025-05-04 14:50 | XMS_ITS | Encounter Summary ---
Author Organization [facility] Address [address] [place] [address] Care Team Providers Care Outbound Sales Specialist Name Role Phone Unavailable Primary Care Provider Unavailabl e Reason for Visit * Reason Comments Routine Visit Encounter Details Date Type Department Care Team ([facility] Contact Info) Description 05/04/2025 2:50 PM EDT Routine ARNOLDO OLIVA [address] [place] [address] Elizabeth Bonilla PA [address] [place], [facility]11 Third trimester ([facility]); 36 weeks gestation of ([facility]) Social History Tobacco Use Types Packs/Day [...] Sign Reading Time Taken Comments Blood Pressure 130/70 05/04/2025 2:59 PM EDT Pulse - - Temperature - - Respiratory Rate - - Oxygen Saturation - - Inhaled Oxygen Concentration - - Weight 84.1 kg (185 lb 8 oz) 05/04/2025 2:59 PM EDT Height - - Body Mass Index - - documented in this encounter Progress Notes * DULCE Deshpande - 05/04/2025 2:50 PM EDT Reason for Appointment: Patient ID: Ayala Bradford is a 24 y.o. female who presents for Routine Visit Patient presents today for Return OB appointment. MEDICATIONS Current Outpatient Medications Medication Instructions famotidine (PEPCID) 20 mg, Oral, Daily ALLERGIES No Known Allergies PROBLEMS Active Ambulatory Problems Diagnosis Date Noted Diabetes mellitus screening 02/01/2025 Second trimester fetus ([facility]) 02/01/2025 23 weeks gestation of ([facility]) 02/01/2025 Resolved Ambulatory Problems Diagnosis Date [...] weight on file to calculate BMI. BP: 130/70 Patient's last menstrual period was 08/21/2024. ASSESSMENT & PLAN ICD-10-CM 1. Third trimester ([facility]) Z34.93 POCT urinalysis dipstick manually resulted CULTURE, GROUP B STREP WITH SUSCEPTIBLITY CULTURE, GROUP B STREP WITH SUSCEPTIBLITY 2. 36 weeks gestation of ([facility]) Z3A.36 Patient is doing well but has complaints of being tired and having maternal discomfort due to . Patient verbalized frequent movement and was instructed to perform kick counts three times per day. labor precautions were given, LARC consent was signed/declined, and GBS was obtained. Orders Placed This Encounter Procedures CULTURE, GROUP B STREP WITH SUSCEPTIBLITY POCT urinalysis dipstick manually resulted Follow Up: Patient is to return to office in 1 week for routine OB appointment Documented by DULCE Deshpande on behalf of: DULCE Deshpande documented in this encounter Plan of Treatment Scheduled Orders Name Type Priority Associated Diagnoses Orde r Schedule CULTURE, GROUP B STREP WITH SUSCEPTIBLITY Lab Routine Third trimester ([facility]) Expected: 05/04/2025, Expires: 05/04/2026 documented as of this encounter Procedures Procedure Name Priority Date/Time Associated Diagnosis Comments POCT URINALYSIS DIPSTICK Routine 05/04/2025 3:08 PM EDT Third trimester ([facility]) documented in this encounter Results * (ABNORMAL) POCT urinalysis dipstick manually resulted (05/04/2025 3:08 PM EDT) Color, UA Yellow Clarity, UA [...] Nitrite, UA Negative Negative - Positive Urine 05/04/2025 3:08 PM EDT us Elizabeth CARDONA POINT OF CARE TEST ENTER/EDIT OR DERABLES Final Result documented in this encounter Visit Diagnoses Diagnosis Third trimester ([facility]) state, incidental 36 weeks gestation of ([facility]) documented in this encounter
[2025-05-11] VITALS (53 sets, daily range): BP systolic 87–130; BP diastolic 45–80; PULSE 70–89; TEMP 36.6–37; O2SAT 82–100
--- OUTSIDE RECORDS SUMMARY | 2025-05-11 05:35 | XMS_ITS | Clinical Summary ---
Author Organization [facility] Healthcare Address [address] [place] [address] Care Team Providers Care Steam And Gas Turbines Assembler Name Role Phone Unavailable Primary Care Provider Unavailabl e Allergies No known active allergies Medications famotidine (Pepcid) 20 MG tabletIndication s:Gastroesophage al Reflux Disease,Heartbur n Take 1 tablet (20 mg) by mouth Daily 30 tablet 11 03/27/2025 Active Active Problems Problem Noted Date Diagnosed Date Diabetes mellitus screening 02/01/2025 Second trimester fetus ([facility]) 02/01/2025 23 weeks gestation of ([facility]) 2024 Estimated Date of Delivery Comme nts Yes 05/28/2025 Based on last me nstrual period of 08/21/2024 Encounters Date Type Department Care Team Description 05/05/2025 Clinisync Result Encounter [facility] External Department Unsolicited Reinaldo Dai, 05/04/2025 2:50 PM [place] [phone] Elizabeth Bonilla PA Third trimester ([facility]); 36 weeks gestation of ([facility]) 05/04/2025 [place] [address] Elizabeth Bonilla PA 05/04/2025 Travel 04/28/2025 Clinisync Result Encounter NOMS External Department Unsolicited Reinaldo Dai, 04/27/2025 3:00 PM EDT Routine [facility] [address] [place] [address] Elizabeth Bonilla PA 35 weeks gestation of ([facility]); Third trimester ([facility]); Excessive growth affecting management of in third trimester, single or unspecified fetus ([facility]); Polyhydramnios in third trimester complication, single or unspecified fetus ([facility]); Gastroesophageal reflux in ([facility]) 04/27/2025 Bamboo flowsheet [facility] [address] [place] [address] Elizabeth Bonilla PA 04/14/2025 Clinisync Result Encounter NOMS External Department Unsolicited MalaikaValeriey, DO 04/10/2025 Clinisync Result Encounter NOMS External Department Unsolicited Malaika, Reinaldo, DO 04/10/2025 Clinisync Result Encounter NOMS External Department Unsolicited MalaikaReinaldo, DO 04/05/2025 Clinisync Result Encounter NOMS External Department Unsolicited Malaika, Reinaldo, DO 04/03/2025 3:50 PM EDT Routine [facility] [address] [place] [phone] Reinaldo Dai, DO Third trimester ([facility]); 32 weeks gestation of ([facility]) 04/03/2025 Bamboo flowsheet [facility] [address] [place] [address] Reinaldo Dai, 03/28/2025 Clinisync Result Encounter NOMS External Department Unsolicited Reinaldo Dai, DO 03/28/2025 Telephone [facility] [address] [place] [address] Diana Heart LPN 03/27/2025 Telephone [facility] [address] [place] [address] Diana Heart LPN 03/22/2025 1:30 PM [place] [address] Reinaldo Dai DO 30 weeks gestation of ([facility]); Third trimester ([facility]); Elevated glucose tolerance test 03/22/2025 1:00 PM EDT [place] [address] size inconsistent with dates ([facility]) 03/22/2025 Travel 03/09/2025 Clinisync Result Encounter NOMS External Department Unsolicited Reinaldo Dai, 03/06/2025 2:50 PM [place] [address] Elizabeth Bonilla PA size inconsistent with dates ([facility]) (Primary Dx); Second trimester ([facility]); 28 weeks gestation of ([facility]) 03/06/2025 [place] [address] Elizabeth Bonilla PA 03/06/2025 Travel 03/01/2025 Results [place] [address] Diana Heart LPN ALL CBC WITH AUTO DIFF, GLUCOSE 1 HOUR 03/01/2025 [place] [address] Diana Heart LPN 02/24/2025 Clinisync Result Encounter NOMS External Department Unsolicited Reinaldo Dai, 02/23/2025 Travel from Last 3 Months Family History [...] Diagnosis Comments US OB BPP W NON-STRESS 05/05/2025 5:28 PM EDT POCT URINALYSIS DIPSTICK Routine 05/04/2025 3:08 PM EDT Third trimester ([facility]) US OB BPP W NON-STRESS 04/28/2025 3:51 PM EDT POCT URINALYSIS DIPSTICK Routine 04/27/2025 3:15 PM EDT 35 weeks gestation of ([facility]) Third trimester ([facility]) US OB BPP W NON-STRESS 04/14/2025 6:17 PM EDT US OB BPP W NON-STRESS 04/10/2025 10:03 PM EDT TB[facility] URINE MICROSCOPIC ONLY Routine 04/10/2025 8:50 PM EDT TBH UA (CLEAN/CATCH) LIGHT AIR DEFENSE ARTILLERY CREWMEMBER/MICRO IF IND. Routine 04/10/2025 8:50 PM EDT US OB BPP W NON-STRESS 04/05/2025 12:51 PM EDT POCT URINALYSIS DIPSTICK Routine 04/03/2025 3:57 PM EDT Third trimester ([facility]) US OB BPP W NON-STRESS 03/28/2025 4:35 PM EDT POCT URINALYSIS DIPSTICK Routine 03/22/2025 1:48 PM EDT 30 weeks gestation of ([facility]) Third trimester ([facility]) US OB FOLLOW UP TRANSABDOMINAL APPROACH Routine 03/22/2025 1:22 PM EDT size inconsistent with dates ([facility]) GLUCOSE TOLERANCE 3 HOUR Routine 03/09/2025 7:37 AM EDT GLUCOSE 1 HOUR Routine 02/24/2025 3:55 PM EDT ALL CBC WITH AUTO DIFF Routine 3:55 PM EDT from Last 3 Months Results * US OB BPP W NON-STRESS (05/05/2025 5:28 PM EDT) Only the most recent of6 resultswithin the time period is included. Anatomical Region Laterality Modality Other 05/05/2025 5:28 PM EDT Narrative 05/05/2025 5:31 [place] [address] Ultrasound Report Signed Patient: TERESA BRADFORD MR#: [id number] : 2000 Acct:[id number] Age/Sex: 24 / F ADM Date: 05/05/25 Loc: US Attending Dr: Reinaldo Dai D.O. Ordering Physician: Reinaldo Dai D.O. Date of Service: 05/05/25 Procedure(s): US OB BPP w non-stress Accession Number(s): [id number] cc: Reinaldo Dai D.O.; Physician,Non-Staff M.D. The [address] [address] Patient Name: TERESA BRADFORD MRN: [id number]:[id number] date: 2000 Sex: F Assigned Patient Location: [facility] Current Patient Location: Accession/Order Number: [id number] Exam Date: 05/05/2025 15:00 Report Date: 05/05/2025 17:28 At the request of: REINALDO DAI DO Procedure: US OB BPP w non-stress Ultrasound biophysical profile HISTORY: Excessive growth Adequate breathing movement, gross body movement, tone and amniotic fluid volume for total score of 8 out of 8. The amniotic fluid index is 21.7cm within normal limits. The heart rate 135 bpm. US/US OB BPP w non-stress IMPRESSION: Adequate ultrasound biophysical profile Impression dictated by: Andres Espinoza M.D. 05/05/2025 5:28 PM Dictation Location: [place] [address] Electronically authenticated by: [id number] Y Date: 05/05/2025 17:28 Dictated By: Andres Espinoza D.O. Signed By: 05/05/25 173 DD/ 1728 TD/TT: Life Skills Teacher: Procedure Note Radiology, Radiologist, MD - 05/05/2025 [place] [address] Ultrasound Report Signed Patient: TERESA BRADFORD NMR#: [id number] : 2000Acct:[id number] Age/Sex: 24 / FADM Date: 05/05/25 Loc: US Attending Dr: Reinaldo Dai D.O. Ordering Physician: Reinaldo Dai D.O. Date of Service: 05/05/25 Procedure(s): US OB BPP w non-stress Accession Number(s): [id number] cc: Reinaldo Dai D.O.; Physician,Non-Staff Fady The [address] [address] Patient Name: TERESA BRADFORD MRN: [id number] date: 2000 Sex: F Assigned Patient Location: [facility] Current Patient Location: Accession/Order Number: [id number] Exam Date: 05/05/2025 15:00 Report Date: 05/05/2025 17:28 At the request of: REINALDO DAI DO Procedure: US OB BPP w non-stress Ultrasound biophysical profile HISTORY: Excessive growth Adequate breathing movement, gross body movement, tone and amniotic fluid volume for total score of 8 out of 8. The amniotic fluidindex is 21.7cm within normal limits. The heart rate 135 bpm. US/US OB BPP w non-stress IMPRESSION: Adequate ultrasound biophysical profile Impression dictated by: Andres Espinoza M.D. 05/05/2025 5:28 PM Dictation Location: [place] [address] Electronically authenticated by: [id number] Y Date: 7:28 Dictated By: Andres Espinoza D.O. Signed By:05/05/25 1731 DD/ 1728 TD/TT: Life Skills Teacher: Reinaldo Dai DO [facility] Final Result * (ABNORMAL) POCT urinalysis dipstick manually resulted (05/04/2025 3:08 PM EDT) Only the most recent of4 [...] TEST ENTER/EDIT OR DERABLES Final Result * (ABNORMAL) [facility]H URINE MICROSCOPIC [...] DO CLINIS[facility]NC Final Result Performing Organization Address [facility] de Phone Number CL[facility]NC TB * (ABNORMAL) TBH UA (CLEAN/CATCH) LIGHT AIR DEFENSE ARTILLERY CREWMEMBER/MICRO IF IND. (04/10/2025 8:50 PM EDT) COLOR [...] DO CLINIS[facility]NC Final Result Performing Organization Address [facility]/State/[facility] Co de Phone Number [facility] TBH * US OB follow up transabdominal approach [...] AM EDT) GLUCOSE TOLERANCE 3 HOUR mg/dL TB Comment: GLU FAST 87 (<95) Col: 03/09/25 0737 GLU 1HR 163 (<180) Col: 03/09/25 0844 GLU 2HR 142 (<155) Col: 03/09/25 0942 GLU 3HR 123 (<140) Col: 03/09/25 1042 03/09/2025 7:37 AM EDT 03/09/2025 7:38 AM EDT Narrative CLINISYNC - 03/09/2025 11:43 AM EDT us Reinaldo Malaika DO LAB BLOOD ORDERABLES Final Resul t [facility] * (ABNORMAL) GLUCOSE 1 HOUR (02/24/2025 3:55 PM EDT) GLUCOSE 1 HOUR 157(H) <130 mg/dL TBH 02/24/2025 3:55 PM EDT 02/24/2025 4:03 PM EDT Narrative CLINISYNC - 02/24/2025 4:43 PM EDT us Reinaldo Dai DO LAB BLOOD ORDERABLES Final Resul t [facility] * (ABNORMAL) ALL CBC WITH [...] us Reinaldo Dai DO CLINIS[facility]NC Final Result [facility]H from Last 3 Months Insurance
--- OUTSIDE RECORDS SUMMARY | 2025-05-11 05:35 | XMS_ITS | Encounter Summary ---
Author Organization [facility] Address [address] [place] [address] Care Team Providers Care Health And Fitness Instructor Name Role Phone Unavailable Primary Care Provider Unavailabl e Encounter Details Date Type Department Care Team ([facility] Contact Info) Description 01/17/2025 Orders Only ARNOLDO Santos OBGYN [address] [place] [phone] Radha Cassidy LPN [address] [place] [address] Social History Tobacco Use Types Packs/Day Years [...]
--- OUTSIDE RECORDS SUMMARY | 2025-05-11 05:35 | XMS_ITS | Encounter Summary ---
Author Organization [facility] Address [address] [place] [address] Care Team Providers Care Communication Specialist Name Role Phone Unavailable Primary Care Provider Unavailabl e Encounter Details Date Type Department Care Team ([facility] Contact Info) Description 05/05/2025 Clinisync Result Encounter NOMS External Department Unsolicited Reinaldo Dai, DO [address] [facility] [place] [address] Social History Tobacco Use Types [...] BPP W NON-STRESS 05/05/2025 5:28 PM EDT documented in this encounter Results * US OB BPP W NON-STRESS (05/05/2025 5:28 PM EDT) Anatomical Region Laterality Modality Other 05/05/2025 5:28 PM EDT Narrative 05/05/2025 5:31 PM EDT The [address] [address] Ultrasound Report Signed Patient: TERESA BRADFORD N MR#: [id number] : 2000 Acct:[id number] Age/Sex: 24 / F ADM Date: 05/05/25 Loc: US Attending Dr: Reinaldo Dai D.O. Ordering Physician: Reinaldo Dai D.O. Date of Service: 05/05/25 Procedure(s): US OB BPP w non-stress Accession Number(s): [id number] cc: Reinaldo Dai D.O.; Physician,Non-Staff MTan The [place] [id number] Patient Name: TERESA BRADFORD MRN: [facility]:[id number] date: 2000 Sex: F Assigned Patient Location: [facility] Current Patient Location: Accession/Order Number: [id number] Exam Date: 05/05/2025 15:00 Report Date: 05/05/2025 [...] Espinoza M.D. 05/05/2025 5:28 PM Dictation Location: [place] [address] Electronically authenticated by: [id number] Y Date: 05/05/2025 17:28 Dictated By: Andres Espinoza D.O. Signed By: 05/05/25 1731 DD/ 1728 TD/TT: Squaring Machine Operator: Procedure Note Radiology, Radiologist, - 05/05/2025 [place] [address] Ultrasound Report Signed Patient: TERESA BRADFORD NMR#: [id number] : 2000Acct:[id number] Age/Sex: 24 / FADM Date: 05/05/25 Loc: US Attending Dr: Reinaldo Dai D.O. Ordering Physician: Reinaldo Dai D.O. Date of Service: 05/05/25 Procedure(s): US OB BPP w non-stress Accession Number(s): [id number] cc: Reinaldo Dai D.O.; Physician,Non-Staff Fady [place] [address] Patient Name: TERESA BRADOFRD MRN: [facility]:[id number] date: 2000 Sex: F Assigned Patient Location: [facility] Current Patient Location: Accession/Order Number: [id number] Exam Date: 05/05/2025 15:00 Report Date: 05/05/2025 [...] Espinoza M.D. 05/05/2025 5:28 PM Dictation Location: [place] [address] Electronically authenticated by: [id number] Y Date: 7:28 Dictated By: Andres Espinoza D.O. Signed By:05/05/25 1731 DD/ 1728 TD/TT: Squaring Machine Operator: us Reinaldo Dai DO [facility] Final Result documented in this encounter Visit Diagnoses Not on filedocumented in this encounter
--- OUTSIDE RECORDS SUMMARY | 2025-05-11 05:35 | XMS_ITS | Encounter Summary ---
Author Organization [facility] Address [address] [place] [address] Care Team Providers Care Instructional Design Consultant Name Role Phone Unavailable Primary Care Provider Unavailabl e Encounter Details Date Type Department Care Team ([facility] Contact Info) Description 11/10/2024 Abstract ARN[facility]DO [place] OBG[facility] [address] [place] [phone] Zion Dai DO [address] [place] [address] Social History Tobacco Use Types Packs/Day Years [...]
--- OUTSIDE RECORDS SUMMARY | 2025-05-11 05:35 | XMS_ITS | Encounter Summary ---
Author Organization [facility] Address [address] [place] [address] Care Team Providers Care Cut Off Sawyer Name Role Phone Unavailable Primary Care Provider Unavailabl e Encounter Details Date Type Department Care Team ([facility] Contact Info) Description 05/04/2025 Bamboo flowsheet ARNOLDO Santos OBGYJoseph [address] [place] [phone] Elizabeth Bonilla PA [address] [place], [facility] Social History Tobacco Use Types Packs/Day [...]
--- OUTSIDE RECORDS SUMMARY | 2025-05-11 05:35 | XMS_ITS | Encounter Summary ---
Author Organization [facility] Address [address] [place] [address] Care Team Providers Care Records Management Director Name Role Phone Unavailable Primary Care Provider Unavailabl e Encounter Details Date Type Department Care Team ([facility] Contact Info) Description 12/19/2024 Abstract ARNOLDO [facility] OBGYN [address] [place] [phone] Zion Dai DO [address] [place] [address] Social History Tobacco Use Types Packs/Day Years [...]
--- OUTSIDE RECORDS SUMMARY | 2025-05-11 05:35 | XMS_ITS | Encounter Summary ---
Author Organization [facility] Address [address] [place] [address] Care Team Providers Care Composing Room Machinist Name Role Phone Unavailable Primary Care Provider Unavailabl e Encounter Details Date Type Department Care Team ([facility] Contact Info) Description 03/01/2025 Results Follow-Up ARN[facility]DO [facility] [address] [facility] [place] [address] Diana Heart LPN [address] [place] [address] ALL CBC WITH AUTO DIFF, [...]
--- OUTSIDE RECORDS SUMMARY | 2025-05-11 05:35 | XMS_ITS | Encounter Summary ---
Author Organization [facility] Address [address] [place] [address] Care Team Providers Care Electric Furnace Operator Name Role Phone Unavailable Primary Care Provider Unavailabl e Encounter Details Date Type Department Care Team ([facility] Contact Info) Description 04/28/2025 Clinisync Result Encounter NOMS External Department Unsolicited Reinaldo Dai, DO [address] [facility] [place] [address] Social History Tobacco Use Types [...] EDT Narrative 04/28/2025 3:53 PM EDT The [address] [address] Ultrasound Report Signed Patient: TERESA BRADFORD N MR#: [id number] : 2000 Acct:[id number] Age/Sex: 24 / F ADM Date: 04/28/25 Loc: US Attending Dr: Reinaldo Dai D.O. Ordering Physician: Reinaldo Dai D.O. Date of Service: 04/28/25 Procedure(s): US OB BPP w non-stress Accession Number(s): [id number] cc: Reinaldo Dai D.O.; Physician,Non-Staff Fady The [place] [id number] Patient Name: TERESA BRADFORD MRN: [facility]:[id number] date: 2000 Sex: F Assigned Patient Location: [facility] Current Patient Location: Accession/Order Number: [id number] Exam Date: 04/28/2025 15:00 Report Date: 04/28/2025 15:51 At the request of: REINALDO DAI DO Procedure: US OB BPP w non-stress Biophysical profile. Reason for exam: Excessive growth COMPARISON: 04/14/2025 TECHNIQUE: Transabdominal imaging of the gravid uterus was obtained. FINDINGS: The credit authorizer reports a BPP of 8 out of 8. KATE is normal at 17.8 cm. heart rate 136 bpm. US/US OB BPP w non-stress IMPRESSION: BPP 8 out of 8. Impression dictated by: Albert Dodge Jr., D.O. 04/28/2025 3:51 PM Dictation Location: [place] [address] Electronically authenticated by: [id number] Y Date: 04/28/2025 15:51 Dictated By: Albert Dodge M.D. Signed By: 04/28/25 1553 DD/ 155 TD/TT: Auto Clutch Rebuilder: Procedure Note Radiology, Radiologist, - 04/28/2025 [place] [address] Ultrasound Report Signed Patient: TERESA BRADFORD NMR#: [id number] : 2000Acct:[id number] Age/Sex: 24 / FADM Date: 04/28/25 Loc: US Attending Dr: Reinaldo Dai D.O. Ordering Physician: Reinaldo aDi D.O. Date of Service: 04/28/25 Procedure(s): US OB BPP w non-stress Accession Number(s): [id number] cc: Reinaldo Dai D.O.; Physician,Non-Staff MTan [place] [address] Patient Name: TERSEA BRADFORD MRN: [facility]:[id number] date: 2000 Sex: F Assigned Patient Location: [facility] Current Patient Location: Accession/Order Number: [id number] Exam Date: 04/28/2025 15:00 Report Date: 04/28/2025 15:51 At the request of: REINALDO DAI DO Procedure: US OB BPP w non-stress Biophysical profile. Reason for exam: Excessive growth COMPARISON: 04/14/2025 TECHNIQUE: Transabdominal imaging of the gravid uterus was obtained. FINDINGS: The credit authorizer reports a BPP of 8 out of 8. KATE is normal at17.8 cm. heart rate 136 bpm. US/US OB BPP w non-stress IMPRESSION: BPP 8 out of 8. Impression dictated by: Albert Dodge Jr., D.O. 04/28/2025 3:51 PM Dictation Location: [place] [address] Electronically authenticated by: [id number] Y Date: 5:51 Dictated By: Albert Dodge M.D. Signed By:04/28/25 1553 DD/ 1551 TD/TT: Auto Clutch Rebuilder: Reinaldo Dai DO [facility] Final Result documented in this encounter Visit Diagnoses Not on filedocumented in this encounter
--- OUTSIDE RECORDS SUMMARY | 2025-05-11 05:35 | XMS_ITS | Encounter Summary ---
Author Organization [facility] Healthcare Address [address] [place] [address] Care Team Providers Care Receiving Associate Store Name Role Phone Unavailable Primary Care Provider [...]
--- OUTSIDE RECORDS SUMMARY | 2025-05-11 05:35 | XMS_ITS | Encounter Summary ---
Author Organization [facility] Address [address] [place] [address] Care Team Providers Care Bow Stapler Name Role Phone Unavailable Primary Care Provider Unavailabl e Encounter Details Date Type Department Care Team ([facility] Contact Info) Description 04/27/2025 Bamboo flowsheet ARNOLDO [place] OBGYJoseph [address] [place] [phone] Elizabeth Bonilla PA [address] [place], [facility]11 Social History Tobacco Use Types [...]
[2025-05-11 06:04] LABS: Hematocrit 32.4 % (36.0-48.0); Hemoglobin 10.8 g/dL (12.0-16.0); Immature Granulocytes Abs Auto 0.05 10^3/uL (0.00-0.03); Immature Granulocytes Pct Auto 0.5 % (0.0-0.5); Lymphocytes Absolute Auto 2.9 10^3/uL (1.2-3.8); Mean Corpuscular HGB Conc 33.3 g/dL (29.9-35.2); Mean Corpuscular Hemoglobin 28.9 pg (26.7-34.0); Mean Corpuscular Volume 86.6 fL (81.0-99.0); Platelet Count 245 10^3/uL (150-450); Red Blood Count 3.74 10^6/uL (4.20-5.40); White Blood Count 9.1 10^3/uL (4.0-11.0)
[2025-05-11 06:06] LABS: Glucose Urine UA NEGATIVE (NEGATIVE)
[2025-05-11 06:17] LABS: Cannabinoid Screen Urine NEGATIVE (NEGATIVE); Methamphetamines Screen Urine NEGATIVE (NEGATIVE); Tricyclic Antidepressant Urine NEGATIVE (NEGATIVE)
[2025-05-11 06:19] LABS: Cast Seen? NONE SEEN #/LPF (NONE SEEN); Crystals Seen? None Seen #/HPF (None Seen); Urine Culture Indicated NO
[2025-05-11] MEDS: CITRIC ACID/SODIUM CITRATE 30 ML SOLUTION ORACIT SHOHL'S SOLN PO (07:26)
[2025-05-11] MEDS: FAMOTIDINE/PF 20 MG/2 ML VIAL IV (07:26)
[2025-05-11] MEDS: CEFAZOLIN SODIUM/DEXTROSE,ISO 2 GM/50 ML PIGGYBACK IV ×2 (07:56→15:56)
--- NOTE | 2025-05-11 08:52 | PM.ONB ---
Brief Operative Note Date of procedure: 05/11/25 Pre-op diagnosis general: iup at 37 4/7, polyhydramnios, lga, gdm Post-op diagnosis: same as pre-op Procedure: NAME OF PROCEDURE: [ section ] PROCEDURE: Patient was taken back to the Operating Room where she was given a spinal anesthesia with Duramorph without difficulty. She was prepped and draped in the normal sterile fashion. A Pfannenstiel skin incision was then made 2 cm above the symphysis pubis and carried down to underlying rectus fascia using a Bovie. The fascia was incised in the midline and extended laterally using Lambert scissors. Two Melinda clamps were placed on the superior aspect of the fascia and dissected off the underlying rectus muscles. The same was performed on the inferior aspect as well. The muscles were then in the midline. Peritoneum was identified and entered bluntly. The peritoneum was then extended superiorly and inferiorly with good visualization of the bladder. The bladder blade was inserted. A low transverse incision was made on the patient's uterus and extended laterally digitally. The infant was then delivered atraumatically after the bladder blade was removed in the cephalic position. The cord was clamped and cut. Cord blood was obtained. The was handed off to awaiting team. The patient's placenta was spontaneously delivered. The uterus was then exteriorized. The uterus was cleared of all clots and debris. The bladder blade was reinserted. The patient's uterine incision was closed using #0 Vicryl in a running lock fashion. Excellent hemostasis was assured. The uterus was then returned to the patient's abdomen. The patient's abdomen was copiously irrigated using warm saline. Peritoneal gutters were cleared of all clots and debris. Again excellent hemostasis was assured. The patient's peritoneum was closed using 3-0 Vicryl in a running fashion. The patient's fascia was closed using #0 Vicryl in a running fashion. The patient's skin was closed using 4-0 Vicryl subcuticularly. The patient tolerated the procedure well. Sponge, lap, and needle counts were correct x2. The patient was taken to the Recovery Room in stable condition. Anesthesia: spinal Surgeon: Zion Dai Handwriting Expert: Daphney Chavis Estimated blood loss (mL): 575 Pathology: none sent Condition: stable Disposition: floor Urinary Catheter Management Urinary Catheter Management Urethral: Cath placed during this visit: no
--- NOTE | 2025-05-11 08:55 | P.OBPRC_ITS ---
Procedure Pre-op/Post-op diagnoses: Pre-Op/Post-Op Diagnoses Operation Date: 05/11/25 07:45 <No data on this case meets the specified criteria> Procedure: Procedures Operation Date: 05/11/25 07:45 Actual Procedure Side Surgeon p Repeat Not Applicable Zion Dai DO Switchboard Mechanic: Daphney Chavis Estimated blood loss (mL): 575 Disposition: floor Anesthesia type: Spinal
--- NOTE | 2025-05-11 15:22 | SWNOTE1 ---
SW called to get maternity inpt prior authorization. SW spoke to Tisha from the insurance company in provider services. She stated that the [employer] ID provided is not primary, it is secondary. She was able to look and pt's primary is under her father's insurance. If she wants to keep her father's insurance as primary, we peng have to call back and get prior auth. IF she wants her 's insurance as primary, no prior auth is required and pt needs to call customer service and request her 's insurance be primary. SW stopped in and spoke with pt and in room. Pt was surprised she was still on her father's insurance as she has not spoken to him in 2 years. She would like her 's insurance to be primary. SW advised pt to call customer service and request this to take place as soon as possible. Pt's and pt asked what number to call? SW looked at card with them and there was no member services or customer service number. SW advised to call provider services and let them know that pt is a member. They voiced understanding and will call. SW advised to let case management or SW know if they had any further questions or if they had any issues calling.
[2025-05-11] MEDS: KETOROLAC TROMETHAMINE 30 MG/ML VIAL IVP (16:09)
[2025-05-11] MEDS: MAGNESIUM HYDROXIDE 2,400 MG/10 ML ORAL.SUSP 2400 MG PO (18:19)
[2025-05-11] MEDS: ENOXAPARIN SODIUM 40 MG/0.4 ML SYRINGE SUBQ (21:36)
[2025-05-12] VITALS (9 sets, daily range): BP systolic 115–124; BP diastolic 66–84; PULSE 84–85; TEMP 36.5–37.1; O2SAT 98–99
[2025-05-12] MEDS: KETOROLAC TROMETHAMINE 30 MG/ML VIAL IVP ×4 (00:30→23:17)
[2025-05-12 06:24] LABS: Hematocrit 27.6 % (36.0-48.0); Hemoglobin 9.1 g/dL (12.0-16.0); Immature Granulocytes Abs Auto 0.06 10^3/uL (0.00-0.03); Immature Granulocytes Pct Auto 0.4 % (0.0-0.5); Lymphocytes Absolute Auto 3.2 10^3/uL (1.2-3.8); Mean Corpuscular HGB Conc 33.0 g/dL (29.9-35.2); Mean Corpuscular Hemoglobin 28.9 pg (26.7-34.0); Mean Corpuscular Volume 87.6 fL (81.0-99.0); Platelet Count 219 10^3/uL (150-450); Red Blood Count 3.15 10^6/uL (4.20-5.40); White Blood Count 14.9 10^3/uL (4.0-11.0)
[2025-05-12] MEDS: DOCUSATE SODIUM 100 MG CAPSULE PO ×2 (08:13→20:50)
--- NOTE | 2025-05-12 11:55 | SWNOTE1 ---
SW stopped in to speak with pt. SW asked if she had a chance to call her insurance? Pt had other family in room and stated she completely forgot and had a million things on her mind. Pt's asked if he could call. SW stated yes as long she pt is close by as they will likely need her permission. Pt and voiced they will call insurance. SW advised to do as soon as possible.
--- NOTE | 2025-05-12 14:00 | PM.OBPN ---
OB - PN: Subj Subjective Interval history: 24 yo now P2 POD # 1 S/P RLTCS at 37w 4d Patient comments: pain well controlled, incisional pain (well controlled), tolerating diet and flatus present [place] status: well Exam Constitutional Vital Signs, click to edit/add: Last Vital Signs Temp 98.2 F 05/12/25 07:58 Pulse 85 05/12/25 07:58 Resp 16 05/12/25 07:56 BP 124/77 05/12/25 07:58 Pulse Ox 82 L 05/11/25 18:21 O2 Del Method Room Air 05/12/25 07:56 Documenting provider has reviewed patient's vital signs: yes Common normals: no apparent distress and oriented x3 General appearance: cooperative and comfortable HENMT Common normals: normocephalic Eye Common normals: EOMs intact bilaterally Neck & C-Spine Common normals: full ROM and supple Respiratory Common normals: normal respiratory effort and no retractions Cardio Common normals: regular rate and regular rhythm GI Common normals: Normal to inspection, nondistended, normoactive bowel sounds present and soft to palpation Inspection: other (incision: clean / dry and intact) Common normals: no CVA tenderness Uterus palpation: other (fundus firm below the umbilicus) Extremity Common normals: no pedal edema Psych Common normals: mental status grossly normal, thought process normal, affect normal and speech normal Appearance: grossly normal and well kempt Attitude: calm Thought content: normal thought content Results Labs Labs: Short CBC 05/12/25 Range/Units 06:17 WBC 14.9 H (4.0-11.0) 10^3/uL Hgb 9.1 L (12.0-16.0) g/dL Hct 27.6 L (36.0-48.0) % Plt Count 219 (150-450) 10^3/uL Urinary Catheter Management Urinary Catheter Management Urethral: Cath placed during this visit: yes, but has since been removed by the nurse Insertion date: 05/12/25 Insertion time: 00:30 Removal date: 05/12/25 Removal time: 08:16 OB - PN: A/P Assessment and Plan (1) Status post repeat low transverse section: Plan - Plan: routine postop care Time Spent with Patient Time: Total time spent is greater than 50% in coordination of care (as documented) at patient's floor/unit and/or counseling patient: Total time spent with greater than 50% in coordination of care (as documented) at patient's floor/unit and/or counseling patient: 25 - 35 minutes
[2025-05-12] MEDS: SIMETHICONE 80 MG TAB.CHEW PO (20:50)
[2025-05-12] MEDS: FERROUS SULFATE 325 MG TABLET PO (20:50)
[2025-05-12] MEDS: ENOXAPARIN SODIUM 40 MG/0.4 ML SYRINGE SUBQ (20:50)
[2025-05-13] MEDS: KETOROLAC TROMETHAMINE 30 MG/ML VIAL IVP (05:44)
[2025-05-13] MEDS: DOCUSATE SODIUM 100 MG CAPSULE PO (08:19)
[2025-05-13] MEDS: FERROUS SULFATE 325 MG TABLET PO (08:19)
[2025-05-13 08:23] VITALS: BP 110/63; PULSE 68; TEMP 36.5
--- NOTE | 2025-05-13 11:01 | P.DS_ITS ---
DS: Providers Provider Date of admission: 05/11/25 05:32 Primary care physician: Non-Staff PhysicianMD Admitting clinician: Zion Dai Attending physician on admission: Zion Dai Attending physician on discharge: MARJAN NICHOLS Discharging clinician: MARJAN NICHOLS Anticipated date of discharge: 05/13/25 DS: Diagnosis Discharge Diagnosis (1) Status post repeat low transverse section: Assessment and plan: patient is recovering well follow up in the office for incision check (2) Iron deficiency anemia of : Plan ferrous sulfate bid OB - DS: Summary Hospital Course Hospital Course: 24yo now P2 at 37 weeks 4 days presented for a history of a for a repeat for LGA and polyhydramnios. was uncomplicated. She delivered an 8 pound 4 ounce male with Apgars of 9 at 1 minute and 9 at 5 minutes. She was breast feeding without problems. She was started on iron for anemis. Peripartum Data - Procedures: Procedures Operation Date: 05/11/25 07:45 Actual Procedure Side Surgeon p Repeat Not Applicable Zion Dai DO Peripartum Data - Vaginal Delivery Procedures: Procedures Operation Date: 05/11/25 07:45 Actual Procedure Side Surgeon p Repeat Not Applicable Zion Dai DO Complications complications: none Delivery method: section Gender: male Discharge plan: home Status at Discharge Functional status at discharge: independent ambulation Overall status at discharge: patient is progressing back to baseline Time Spent with Patient Time attestation: Total time spent providing and/or coordinating discharge services: Time spent: less than 30 minutes Exam Constitutional Vital Signs, click to edit/add: Last Vital Signs Temp 97.7 F 05/13/25 08:23 Pulse 68 05/13/25 08:23 Resp 16 05/13/25 08:23 BP 110/63 05/13/25 08:23 Pulse Ox 98 05/12/25 23:15 O2 Del Method Room Air 05/13/25 08:22 Documenting provider has reviewed patient's vital signs: yes Common normals: no apparent distress General appearance: cooperative, comfortable, well kempt and well developed Orientation/consciousness: Yes oriented to person and Yes oriented to time HENMT Common normals: normocephalic Eye Common normals: EOMs intact bilaterally Respiratory Common normals: normal respiratory effort and no retractions Cardio Common normals: regular rate and regular rhythm GI Common normals: soft to palpation and non-tender Inspection: scar (low transverse incision is clean/dry/intact) Common normals: no CVA tenderness Uterus palpation: other (fundus firm and below umbilicus, non-tender) Extremity Common normals: no pedal edema Psych Common normals: thought process normal, cooperative, affect normal and speech normal Appearance: grossly normal Discharge Plan Discharge Disposition: Home, Self-Care Condition: Good Discharge Medications: New ibuprofen 800 mg tablet 800 mg PO Q8H PRN (Reason: pain) 14 Days Qty: 40 0RF oxycodone-acetaminophen [Percocet] 5-325 mg tablet 1 tab PO Q6H PRN (Reason: pain) 5 Days Qty: 20 0RF Rx Instructions: g89.18 ferrous sulfate 325 mg (65 mg iron) Tablet 325 mg PO BID Qty: 60 0RF docusate sodium 100 mg Capsule 100 mg PO BID Qty: 60 0RF Rx Instructions: bid PRN constipation Continued famotidine 20 mg tablet Activity: increase activity as tolerated Diet: regular diet Print Language: Macedonian Forms: Delivery - Discharge, Portal Instructions Follow Up Appointments: this week in the office of Dr. Dai for incision check Discharge location: to home
[2025-05-13] MEDS: IBUPROFEN 400 MG TABLET 800 MG PO (11:18)
== END 2025-05-13 12:00 | disposition home or self-care (01) | DRG 788 ==
PROVIDERS: Admitting Provider Obstetrics & Gynecology; Visit Provider Obstetrics & Gynecology
PROC: 10D00Z1 Extraction of Products of Conception, Low, Open Approach (ICD-10-PCS; CPT 59514; principal; 2025-05-11 07:45)
DX: O40.3XX0 Polyhydramnios, third trimester, not applicable or unspecified (principal); O34.211 Maternal care for low transverse scar from previous cesarean delivery; Z3A.37 37 weeks gestation of pregnancy; Z37.0 Single live birth; O99.824 Streptococcus B carrier state complicating childbirth; O36.63X0 Maternal care for excessive fetal growth, third trimester, not applicable or unspecified; O24.429 Gestational diabetes mellitus in childbirth, unspecified control; O99.013 Anemia complicating pregnancy, third trimester; D50.9 Iron deficiency anemia, unspecified
CPT/HCPCS: 36415; 51702; 51798; 64488; 80307; 81001; 85025; 86850; 86900; 86901; 94667; 94668; J0131; J0665; J0690; J1100; J1200; J1650; J1885; J2274; J2371; J2405; J2590; J3490